=== PATIENT | female | born 1935 | race Caucasian/White ===

== ENCOUNTER → 2016-07-23 | Outpatient (CLI) | payer MEDICARE, BC ==
--- NOTE | 2016-07-23 15:08 | RAD ---
Indication cough. Axial noncontrast images through the chest were obtained. No prior imaging of the chest is available. The thoracic aorta is within normal limits. There is a moderately large hiatus hernia. There is no significant hilar or mediastinal adenopathy. There is a trace amount of pericardial fluid. There is some coronary artery calcification. A dominant soft tissue mass in either lung is not seen. The upper lobes are clear. There is no significant finding seen in the lingula or right middle lobe. There is some volume loss in both lower lobes. This may reflect atelectasis or conceivably pneumonia. There is mild compression of several thoracic vertebral body segments. This is probably chronic. IMPRESSION: Volume loss in both lower lobes may reflect atelectasis or pneumonia. Hiatus hernia. Musculoskeletal changes likely chronic PQRS Compliance Statement: One or more of the following individualized dose reduction techniques were utilized for this examination: 1. Automated exposure control 2. Adjustment of the mA and/or kV according to patient size 3. Use of iterative reconstruction technique
== END | disposition home or self-care (01) ==
LOC: CT 13:21
PROVIDERS: ATTEND Nurse Practitioner Adult Health
DX: R05 Cough (principal); J98.11 Atelectasis; J18.9 Pneumonia, unspecified organism; K44.9 Diaphragmatic hernia without obstruction or gangrene
CPT/HCPCS: 71250

== ENCOUNTER 2016-08-05 07:16 | Emergency (ER) | payer MEDICARE, BC ==
[2016-08-05 07:25] VITALS: BP 151/81
--- NOTE | 2016-08-05 07:42 | PHYS DOC ---
General Chief Complaint: MECHANICAL FALL Stated Complaint: FALL/LEFT SHOULDER INJURY Time Seen by MD: 07:18 Source: patient Exam Limitations: no limitations Problems: History of Present Illness Initial Comments Pt is 80/F to ED with left shoulder pain from fall. Pt states that this am she was walking and isn't certain whether she stumbled or lost her balance, but she fell down to her left to the floor. She tried to catch herself with outstretched left hand, states she did hit back of her head on the ground. Denies CABALLERO/LOC/neck pain, states she didn't hit her head very hard and doesn't feel injured at all. No daze, cognitive deficit, n/v, vision change, photophobia, CABALLERO, focal neurodef. Pt was prescribed coumadin for CVA in past, states her doctor told her to hold the med scheduled her to check INR today. Pt doctor considering stopping coumadin due to falls. Pain located generalized left shoulder, pt holds it adducted/internally rotated. Unwilling to move it due to pain, has full use of her left hand/ fingers, no numbness/tingling/weakness/radiating sx. Refuses pain meds on arrival. Onset: this morning Severity: moderate Pain/Injury Location: left shoulder Method of Injury: fell Modifying Factors: improves with immobilization, worse with jarring, worse with movement, improves with rest Allergies: Coded Allergies: No Known Drug Allergies (Unverified , 08/05/16) Past Medical History Medical History: other (GERD, HLP, HTN, CAD) Social History Smoker: non-smoker Alcohol: none Drugs: none Review of Systems Constitutional: denies chills, denies fever, denies malaise, denies weakness EENTM: denies blurred vision, denies ear discharge, denies nose pain, denies nose congestion, denies throat pain Respiratory: denies cough, denies shortness of breath, denies wheezing Cardiovascular: denies chest pain, denies palpitations, denies syncope Gastrointestinal: denies abdominal pain, denies nausea, denies vomiting Musculoskeletal: see HPI Psychiatric/Neurological: denies headache, denies numbness, denies paresthesia , denies tingling, denies weakness Physical Exam General Appearance: WD/WN, no apparent distress HEENT: PERRL/EOMI, normal ENT inspection (NCAT) Neck: non-tender, supple Cardiovascular/Respiratory: normal peripheral pulses, no respiratory distress Back: no CVA tenderness, no vertebral tenderness Shoulder: limited ROM, pain, soft tissue tenderness (L shoulder: proximal humeral TTP no swell/ecchy or obvious deformity, ROM not tested due to pain) Elbow/Forearm: normal inspection, non-tender Wrist: normal inspection, non-tender Neurologic/Tendon: normal sensation, normal motor functions, normal tendon functions, responds to pain, no evidence tendon injury, other (LUE neurovasc intact) Psychiatric: alert, oriented x 3 Skin: normal color, warm/dry Orders, Labs, Meds Phenytoin level ordered, pt states she is supposed to have dilantin level this am as well, she will not make that appt and asked if could be done here. PATIENT: EZEQUIEL GARCIA ACCOUNT: [id number] : 1935 LOCATION: ER AGE: 80 SEX: F EXAM [id number] STATUS: REG ER ORD. PHYSICIAN: WELLINGTON JONAS DO REASON: fall to outstretched left hand, L shoulder pain PROCEDURE: CLAVICLE LEFT; SHOULDER 2+V LEFT Left shoulder, 3 views, 08/05/2016: History: Fall, pain There is a fracture of the left humeral neck. It appears to be slightly comminuted and mildly impacted. No shoulder dislocation is evident. There are cystic and sclerotic changes along the glenoid fossa on a degenerative basis. IMPRESSION: Acute left humeral neck fracture. Left clavicle, 2 views, 08/05/2016: No fracture is identified. IMPRESSION: Normal left clavicle. DICTATED AND SIGNED BY: JACKIE NÚÑEZ MD DATE: 08/05/16 0901 CC: OBED PETTIT MD; WELLINGTON JONAS DO ~ Departure Time of Disposition: 10:19 Disposition: 01 HOME, SELF-CARE Diagnosis: Left Humeral Neck Fracture, Fall Condition: GOOD Patient Instructions: Fall Prevention and Home Safety, Itxa-rr-[id number], Humerus Fracture, Treated with Immobilization, Mend-ad-Cojh, RICE - Routine Care for Injuries, [id number] Additional Instructions: Ask for assistance with standing/walking, especially with pain medications. RICE, see handout. Wear sling. OTC ibuprofen for baseline pain. Rx: norco 5mg #10 (drink extra fluid and take stool softeners with this medication to avoid constipation. Take with food.) Follow up with Dr Griffin Vick at [facility] [address] , [place] [address] call today to schedule appointment. Return to ED as needed. WELLINGTON JONAS DO Aug 05, 2016 07:42
[2016-08-05 08:07] LABS: PHENY 18.5 mcg/mL (10.0-20.0)
--- NOTE | 2016-08-05 09:06 | RAD ---
Left shoulder, 3 views, 08/05/2016: History: Fall, pain There is a fracture of the left humeral neck. It appears to be slightly comminuted and mildly impacted. No shoulder dislocation is evident. There are cystic and sclerotic changes along the glenoid fossa on a degenerative basis. IMPRESSION: Acute left humeral neck fracture. Left clavicle, 2 views, 08/05/2016: No fracture is identified. IMPRESSION: Normal left clavicle.
[2016-08-05] MEDS ORDERED: HYDR-971 PO (10:23)
== END 2016-08-05 11:00 | disposition home or self-care (01) ==
LOC: ER 07:16
DX: S42.212A Unspecified displaced fracture of surgical neck of left humerus, initial encounter for closed fracture (principal); I25.10 Atherosclerotic heart disease of native coronary artery without angina pectoris; I10 Essential (primary) hypertension; E78.00 Pure hypercholesterolemia, unspecified; K21.9 Gastro-esophageal reflux disease without esophagitis; W19.XXXA Unspecified fall, initial encounter; Y93.01 Activity, walking, marching and hiking; Y99.8 Other external cause status; Y92.89 Other specified places as the place of occurrence of the external cause
CPT/HCPCS: 29105; 36415; 73000; 73030; 80185; 85610; 85730; 99285-25

== ENCOUNTER 2016-08-10 12:30 | Inpatient (IN) | payer MEDICARE, BC ==
[~2016-08-10] VITALS: Ht 157.5 cm; Wt 53.7 kg
[~2016-08-10 12:30] MED LIST: HYDR-971 PO
--- NOTE | 2016-08-10 13:18 | EKG ---
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
--- NOTE | 2016-08-10 13:40 | RAD ---
Portable AP view CXR: Clinical indications: Shortness of breath. Weakness for 3 days. Patient fell on August 05, 2016. Left arm pain with proximal left humerus fracture. Comparison: Left shoulder study dated August 05, 2016.. Findings: No acute lung infiltrate or pleural effusion or pulmonary edema or lung mass or pneumothorax is seen. The heart size, pulmonary vasculature, mediastinum and both irma are unremarkable given AP magnification. Again seen is a proximal left humerus fracture which is unchanged. Impression: No acute lung infiltrate. Proximal left humerus fracture. No obvious left rib cage deformity is seen..
[2016-08-10 13:48] LABS: BASO % 1 % (0-3); EOS # 0.7 x10^3/uL (0.0-0.7); EOS % 10 % (0-3); HEMATOCRIT 32.7 % (36.0-47.0); HEMOGLOBIN 11.3 g/dL (12.0-15.5); LYMPH # 1.2 x10^3/uL (1.0-4.8); LYMPH % 18 % (24-48); MEAN CORPUSCULAR HEMOGLOBIN 30 pg (25-35); MEAN CORPUSCULAR HGB CONC 35 g/dL (31-37); MEAN CORPUSCULAR VOLUME 86 fL (79-100); MONO # 0.7 x10^3/uL (0.0-1.1); MONO % 12 % (0-9); NEUT # 3.8 x10^3uL (1.8-7.7); NEUT % 60 % (31-73); PLATELET COUNT 293 x10^3/uL (140-400); RED BLOOD COUNT 3.81 x10^6/uL (3.50-5.40); RED CELL DISTRIBUTION WIDTH 13.3 % (11.5-14.5); WHITE BLOOD COUNT 6.4 x10^3/uL (4.0-11.0)
[2016-08-10 14:09] LABS: ALBUMIN 2.9 g/dL (3.4-5.0); ALBUMIN/GLOBULIN RATIO 0.7 (1.0-1.7); CALCIUM 8.6 mg/dL (8.5-10.1); CREATININE 0.8 mg/dL (0.6-1.0); POTASSIUM 3.9 mmol/L (3.5-5.1); TOTAL BILIRUBIN 0.4 mg/dL (0.2-1.0); TOTAL PROTEIN 6.9 g/dL (6.4-8.2)
[2016-08-10] MEDS ORDERED: IV NORMAL SALINE 500ML 500 ML IV ONE (14:20)
--- NOTE | 2016-08-10 14:38 | ED.ADGEN ---
Past History Past Medical History: GERD, High Cholesterol, Heart Disease, Hypertension Past Surgical History: Other Alcohol Use: None Drug Use: None Adult General Chief Complaint Chief Complaint Generalized weakness, left shoulder pain HPI HPI Patient is a 80-year-old female with history of paroxysmal atrial fibrillation diagnosed with closed left proximal humerus fracture several days ago who presents with generalized weakness, fatigue and inability to perform activities of daily living. Patient has her Coumadin held pending orthopedic consult for possible shoulder replacement surgery. She reports decreased appetite and decreased energy and oral intake has not had strengths get out of bed today according to family members. Patient denies fever, chills, cough, sore throat, chest pain, shortness of breath palpitations. Denies urinary frequency urgency and dysuria. No other acute symptoms or complaints. Patient's PCP is Dr. Palumbo. Review of Systems Review of Systems ROS as per HPI. Current Medications Current Medications Current Medications Medications (Trade) Dose Ordered Sig/River Start Time Stop Time Status Last Admin Dose Admin Sodium Chloride (Iv Sodium Chloride 0.9% 1,000ml) 1,000 ml @ 75 mls/hr [id number] 08/10/16 14:30 08/11/16 14:29 Allergies Allergies Allergies Coded Allergies Type Severity Reaction Last Updated Verified No Known Drug Allergies 08/05/16 No Physical Exam Physical Exam Constitutional: Well developed, well nourished, no acute distress, non-toxic appearance. HENT: Normocephalic, atraumatic, bilateral external ears normal, oropharynx moist, no oral exudates, nose normal. Eyes: PERRL, EOMI, conjunctiva normal. Neck: Normal range of motion, no tenderness, supple. Cardiovascular:Heart rate regular rhythm, no murmur. Lungs & Thorax: Bilateral breath sounds clear to auscultation. Abdomen: Bowel sounds normal, soft, no tenderness, no masses, no pulsatile masses. Skin: Warm, dry, no erythema, no rash. Extremities: Shoulder, subtle deformity with dependent bruising. 1 pitting bipedal edema Neurologic: Alert and oriented X 3, upper extremity, no motor weakness or loss of sensation. Psychologic: Affect, flat. Current Patient Data Vital Signs Vital Signs Date Time Temp Pulse Resp B/P Pulse Ox O2 Delivery O2 Flow Rate FiO2 08/10/16 13:57 69 20 153/65 97 Room Air 08/10/16 12:30 98.4 Lab Results Laboratory Tests Test 08/10/16 13:35 White Blood Count 6.4x10^3/uL (4.0-11.0) Red Blood Count 3.81x10^6/uL (3.50-5.40) Hemoglobin 11.3g/dL (12.0-15.5) L Hematocrit 32.7% (36.0-47.0) L Mean Corpuscular Volume 86fL (79-100) Mean Corpuscular Hemoglobin 30pg (25-35) Mean Corpuscular Hemoglobin Concent 35g/dL (31-37) Red Cell Distribution Width 13.3% (11.5-14.5) Platelet Count 293x10^3/uL (140-400) Neutrophils (%) (Auto) 60% (31-73) Lymphocytes (%) (Auto) 18% (24-48) L Monocytes (%) (Auto) 12% (0-9) H Eosinophils (%) (Auto) 10% (0-3) H Basophils (%) (Auto) 1% (0-3) Neutrophils # (Auto) 3.8x10^3uL (1.8-7.7) Lymphocytes # (Auto) 1.2x10^3/uL (1.0-4.8) Monocytes # (Auto) 0.7x10^3/uL (0.0-1.1) Eosinophils # (Auto) 0.7x10^3/uL (0.0-0.7) Basophils # (Auto) 0.0x10^3/uL (0.0-0.2) Sodium Level 130mmol/L (136-145) L Potassium Level 3.9mmol/L (3.5-5.1) Chloride Level 93mmol/L (98-107) L Carbon Dioxide Level 32mmol/L (21-32) Anion Gap 5 (6-14) L Blood Urea Nitrogen 13mg/dL (7-20) Creatinine 0.8mg/dL (0.6-1.0) Estimated GFR (Cockcroft-Gault) 69.0 BUN/Creatinine Ratio 16 (6-20) Glucose Level 88mg/dL (70-99) Calcium Level 8.6mg/dL (8.5-10.1) Total Bilirubin 0.4mg/dL (0.2-1.0) Aspartate Amino Transferase (AST) 17U/L (15-37) Alanine Aminotransferase (ALT) 19U/L (14-59) Alkaline Phosphatase 108U/L (46-116) Troponin I Quantitative < 0.017ng/mL (0-0.055) JJ-Vzk-D-Type Natriuretic Peptide 361pg/mL (0-449) Total Protein 6.9g/dL (6.4-8.2) Albumin 2.9g/dL (3.4-5.0) L Albumin/Globulin Ratio 0.7 (1.0-1.7) L EKG EKG [EKG: Normal sinus rhythm, rate 60, no acute ST-T wave changes, QTC 402.] Radiology/Procedures Radiology/Procedures [Chest x-ray: No acute cardiopulmonary disease, proximal left no fracture per radiology report.] Impressions: Generalized weakness, failure thrive-likely multifactorial. Course & Med Decision Making Course & Med Decision Making Pertinent Labs and Imaging studies reviewed. (See chart for details) [Concern that hyponatremia may be playing component. Dr. Palumbo to admit with anticipated PT/OT consult. IVF started. ] Final Impression Final Impression [1. Generalized weakness 2. hyponatremia 3. left shoulder fracture] Problems: Dragon Disclaimer Dragon Disclaimer This electronic medical record was generated, in whole or in part, using a voice recognition dictation system. CHRISTY MAYER DO Aug 10, 2016 14:38
[2016-08-10 14:57] LABS: BILIRUBIN,URINE NEG (NEG); CLARITY,URINE CLEAR; COLOR,URINE YELLOW; GLUCOSE,URINE NEG (NEG); NITRITE,URINE NEG (NEG); UROBILINOGEN,URINE 0.2 mg/dL (0.2 mg/dL)
[2016-08-10 14:58] LABS: BACTERIA,URINE 0 /HPF (0-FEW); WBC,URINE OCC /HPF (0-4)
--- NOTE | 2016-08-10 15:14 | ACF ---
Admission Criteria Forms HYPONATREMIA; HYPERNATREMIA; HYPOKALEMIA; HYPERKALEMIA; HYPOCALCEMIA; HYPERCALCEMIA Clinical Indications for Inpatient Care (Place 'X' for any and all applicable criteria): Ongoing inpatient care may be indicated for ANY ONE of the following [G](1)(2)(3 )(5): [x]I. Hyponatremia with ANY ONE of the following: [ ]a) Sodium less than 130 mEq/L (mmol/L) (new) (6)(22) [x]b) Sodium less than 135 mEq/L (mmol/L) with ANY ONE of the following: [x]i) Severe medical etiology requiring inpatient management (eg, heart failure, hypovolemia) [ ]ii) Altered mental status [ ]iii) Seizures [ ]II. Hypernatremia with ANY ONE of the following: [ ]a) Sodium greater than 155 mEq/L (mmol/L) [ ]b) Sodium greater than 150 mEq/L (mmol/L) with ANY ONE of the following: [ ] i) Altered mental status [ ]ii) Seizures [ ]iii) Severe medical etiology (eg, hypovolemia, diabetes insipidus) [ ]iv) Severe weakness [ ]v) Severe medical etiology (eg, hemolysis, infection, drug overdose) [ ]III. Hypokalemia with ANY ONE of the following: [ ]a) Potassium less than 2.5 mEq/L (mmol/L) despite outpatient and emergency treatment [ ]b) Potassium less than 3.0 mEq/L (mmol/L) with ANY ONE of the following: [ ]i) Weakness [ ]ii) Cardiac abnormality (eg, arrhythmia, conduction disturbance) [ ]iii) Cardiac ischemia [ ]iv) Ileus [ ]v) Ongoing medical cause requiring inpatient management. ( e.g., acute renal wasting, SIADH) [ ]vi) Other severe symptoms [ ] IV. Hyperkalemia with ANY ONE of the following: [ ]a) Potassium greater than 6.5 mEq/L (mmol/L) [ ]b) Potassium greater than 5 mEq/L (mmol/L) with ANY ONE of the following: [ ]i) Severe ECG findings [H] [ ]ii) Acute worsening of renal failure (creatinine greater than 2.5 mg/dL (221 micromoles/L) or significant elevation for age and size) [ ] V. Hypocalcemia with ANY ONE of the following: [ ]a) Calcium less than 7 mg/dL (1.75 mmol/L) despite outpatient and emergency treatment(19) [ ]b) Calcium less than 8 mg/dL (2 mmol/L) with significant symptoms or findings; examples include: [ ]i) Cardiac abnormality (eg, arrhythmia or conduction disturbance) [ ]ii) Altered mental status [ ]iii) Seizures [ ]iv) Breathing difficulty [ ]v) Muscle spasms [ ]. Hypercalcemia with ANY ONE of the following: [ ]a) Calcium greater than 14 mg/dL (3.5 mmol/L) [ ]b) Calcium greater than 12 mg/dL (3 mmol/L) with ANY ONE of the following: [ ]i) Significant dehydration or hypovolemia as indicated by ANY ONE of the following(2): [ ]1. Clinically significant dehydration as indicated by ANY ONE of the following: [ ]A. Acute loss of weight from baseline (5% of body weight in adults, 9% in pediatric patients) [ ]B. Hemodynamic instability [ ]C. Acute renal failure [ ]D. Serum sodium greater than 150 mEq/L (mmol/L) [ ]2) Dehydration that is persistent indicated by ALL of the following: [ ]A. Oral rehydration therapy not tolerated or insufficient to adequately correct dehydration [ ]B. Appropriate intravenous treatment (eg, fluids ) does not readily correct dehydration ie, after 12 to 24 hours of treatment) [ ]ii) Significant symptoms or findings; examples include: [ ]1) Altered mental status [ ]2) Cardiac abnormality (eg, arrhythmia, conduction disturbance) [ ]3) Cardiac abnormality (eg, arrhythmia, conduction disturbance) The original [email or web address] content created by [email or web address] has been revised. The portions of the content which have been revised are identified through the use of italic text or in bold, and [facility] [employer] has neither reviewed nor approved the modified material. All other unmodified content is copyright [facility] [employer] Please see references footnoted in the original [facility] [employer] edition 2016 Admission Criteria Met?: Yes JANELLE DAVIES Aug 10, 2016 15:14
[2016-08-10 15:47] VITALS: BP 144/72
[2016-08-10] MEDS ORDERED: HYDR12.53 PO (17:02)
[2016-08-10] MEDS ORDERED: LOSA100T6 PO (17:02)
[2016-08-10] MEDS ORDERED: CARV25TA2 PO (17:02)
[2016-08-10] MEDS ORDERED: POTA10TA5 PO (17:08)
[2016-08-10] MEDS ORDERED: FOLI1TAB16 PO (17:10)
[2016-08-10] MEDS ORDERED: ALEN70TA5 PO (17:10)
[2016-08-10] MEDS ORDERED: NISO17TA PO (17:44)
[2016-08-10] MEDS ORDERED: SIMV40TA3 PO (17:45)
[2016-08-10 18:03] VITALS: BP 142/58
--- NOTE | 2016-08-10 18:48 | RAD ---
PQRS STATEMENT One or more of the following individualized dose reduction techniques were utilized for this study: 1.Automated exposure control 2.Adjustment of the mA and/or kV according to patient size 3.Use of iterative reconstruction technique CT HEAD Indication: FALL LAST WEEK
PRIOR CT HEAD SENTReason: head trauma / Spl. Instructions: / History: COMPARISON: 11/04/2007 TECHNIQUE: 5 mm contiguous axial images were obtained from the skull base to the vertex in both bone and soft tissue algorithm. 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 There are bilateral symmetric areas of low attenuation in the periventricular white matter which are nonspecific but probably related to sequelae of chronic small vessel ischemic disease. No evidence of acute intracranial hemorrhage. No extra-axial fluid collections. No mass effect or midline shift.Ventricular size is appropriate. Basal cisterns are patent. No fractures identified. Globes and orbits are within normal limits. Paranasal sinuses and mastoid air cells are clear. IMPRESSION: - No acute intracranial abnormality. 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 Electronically signed by: Conrad Shay (Aug 10, 2016 18:48:17)
[2016-08-10] MEDS ORDERED: PRESERVISION (19:38)
[2016-08-10] MEDS ORDERED: HYDROCODONE/APAP 5/325MG TABLET. PO PRN (19:45)
[2016-08-10] MEDS: LOSARTAN 50 MG TABLET. PO SCH (20:00)
[2016-08-10] MEDS: PHENYTOIN SODIUM EXTENDED 100 MG CAPSULE PO SCH (20:38)
[2016-08-10] MEDS: AMLODIPINE BESYLATE 5 MG TABLET PO SCH (20:38)
[2016-08-10 23:06] VITALS: BP 167/72
[2016-08-10] MEDS ORDERED: DIPHENHYDRAMINE HCL 25 MG CAPSULE PO PRN (23:30)
[2016-08-11] MEDS: IV NORMAL SALINE 1,000ML 1,000 ML IV SCH ×5 (03:07→17:45)
[2016-08-11 05:26] LABS: BASO # 0.1 x10^3/uL (0.0-0.2); BASO % 1 % (0-3); EOS # 0.6 x10^3/uL (0.0-0.7); EOS % 10 % (0-3); HEMOGLOBIN 10.4 g/dL (12.0-15.5); LYMPH # 1.3 x10^3/uL (1.0-4.8); LYMPH % 24 % (24-48); MEAN CORPUSCULAR HEMOGLOBIN 30 pg (25-35); MEAN CORPUSCULAR HGB CONC 35 g/dL (31-37); MEAN CORPUSCULAR VOLUME 86 fL (79-100); MONO # 0.7 x10^3/uL (0.0-1.1); MONO % 12 % (0-9); NEUT # 3.1 x10^3uL (1.8-7.7); NEUT % 53 % (31-73); PLATELET COUNT 244 x10^3/uL (140-400); RED BLOOD COUNT 3.48 x10^6/uL (3.50-5.40); RED CELL DISTRIBUTION WIDTH 13.6 % (11.5-14.5); WHITE BLOOD COUNT 5.7 x10^3/uL (4.0-11.0)
[2016-08-11 05:27] LABS: CALCIUM 7.9 mg/dL (8.5-10.1); CREATININE 0.8 mg/dL (0.6-1.0); POTASSIUM 3.6 mmol/L (3.5-5.1)
[2016-08-11] MEDS ORDERED: CARVEDILOL 25 MG TABLET PO SCH (08:00)
[2016-08-11 08:01] VITALS: BP 157/62
[2016-08-11] MEDS ORDERED: ACETAMINOPHEN 500 MG TABLET PO PRN (09:15)
[2016-08-11] MEDS: CARVEDILOL 25 MG TABLET PO SCH ×2 (09:23→17:10)
[2016-08-11] MEDS: HYDROCHLOROTHIAZIDE 12.5 MG CAPSULE PO SCH (09:23)
[2016-08-11] MEDS: LOSARTAN 50 MG TABLET. PO SCH (09:23)
[2016-08-11 11:28] VITALS: BP 136/58
[2016-08-11] MEDS ORDERED: ENOXAPARIN 30 MG/0.3 ML DISP.SYRIN. SQ SCH (12:30)
--- NOTE | 2016-08-11 16:15 | HP ---
ADMIT DATE: 08/10/2016 HISTORY OF PRESENT ILLNESS: An 80-year-old female came in through the Emergency Room with a history of paroxysmal atrial fibrillation, apparently fractured her shoulder here a few days ago, came in; however, since that time, she has been having generalized weakness, fatigue, unable to do any daily routine. She has not been eating or drinking much at all. She has been increasingly weakened, cannot get out of bed and is generally deteriorated, showed general mental decrease in her ability to function. She was admitted to the hospital for further evaluation of the change in mental status, possible encephalopathy, possible mild concussion from her fall, which no doubt was probably related to her atrial fibrillation. Originally, when she came into the Emergency Room in early August, apparently, she stumbled, she lost her balance, tried to catch herself, outstretched left hand, hit the back of her head on the ground. She was not quite sure whether or not she lost consciousness or not at that time, she was seen initially in the Emergency Room, where she was found to have this fracture to the left shoulder. At that time, the patient was discharged home for followup and further evaluation there. The patient had also within the last month been treated for pneumonia, but a chest x-ray was basically unremarkable there. In any case, the patient was admitted to the hospital for further evaluation and treatment. I believe, she does have some mild concussion especially with her age. She is on chronic anticoagulation therapy as well for her atrial fibrillation. MEDICATIONS: 70 mg a day, carvedilol 25 mg t.i.d., folic acid, hydrochlorothiazide, hydrocodone, losartan, mg extended release, potassium chloride, Zocor 40, PreserVision. ALLERGIES: No known drug allergies. FAMILY HISTORY: Unremarkable. SOCIAL HISTORY: Denies smoking, alcohol or drug use. REVIEW OF SYSTEMS: Basically, she denies headaches, although she is a little bit lethargic, weak, has severe pain in her left shoulder. Denies any chest pain, shortness breath, or abdominal pain. Denies any melena, hematochezia, or hematemesis. Neurologically, intact. As far as obviously she shows a deterioration of her overall mental status. PAST MEDICAL HISTORY: She has had a history of a stroke years ago, a history of seizure activity, hysterectomy, hypertension, hypercholesterolemia, cardiac disorders, and neurological problems as well. PHYSICAL EXAMINATION: VITAL SIGNS: Blood pressure 150/60, respiratory rate 20, pulse 70, afebrile. HEENT: The patient's head was atraumatic, normocephalic. Eyes: PERRLA without jaundice. Mouth and throat were normal. NECK: Supple. LUNGS: Diminished throughout, but clear. CARDIOVASCULAR: Regular rate and rhythm. ABDOMEN: Soft, nontender. No rebound or guarding, positive bowel sounds, no hepatosplenomegaly noted. EXTREMITIES: No clubbing, cyanosis or edema. NEUROLOGIC: The patient was basically very lethargic, very weak and so forth. As a result of this, the patient was admitted to the hospital for further evaluation on that element as well. IMPRESSION: Concussion, general deterioration or failure to thrive, anemia of chronic disease, hyponatremia, generalized weakness, recent fracture of her left humerus, and history of seizure activity. OBED PETTIT MD DR: MAHESH/kenya JOB#: [id number] / [id number]
[2016-08-11 16:40] VITALS: BP 141/70
[2016-08-11] MEDS ORDERED: IV NORMAL SALINE 1,000ML 1,000 ML IV SCH (17:15)
[2016-08-11 19:06] VITALS: BP 139/66
[2016-08-11] MEDS: PHENYTOIN SODIUM EXTENDED 100 MG CAPSULE PO SCH (20:16)
[2016-08-11] MEDS: ENOXAPARIN 40 MG/0.4 ML DISP.SYRIN. SQ SCH (20:17)
[2016-08-11] MEDS: AMLODIPINE BESYLATE 5 MG TABLET PO SCH (20:17)
[2016-08-12] VITALS (7 sets, daily range): BP systolic 136–171; BP diastolic 61–86
[2016-08-12] MEDS: IV NORMAL SALINE 1,000ML 1,000 ML IV SCH ×2 (05:58→19:49)
[2016-08-12 06:16] LABS: BASO % 0 % (0-3); EOS # 0.6 x10^3/uL (0.0-0.7); EOS % 12 % (0-3); HEMATOCRIT 28.6 % (36.0-47.0); HEMOGLOBIN 9.8 g/dL (12.0-15.5); LYMPH % 19 % (24-48); MEAN CORPUSCULAR HEMOGLOBIN 30 pg (25-35); MEAN CORPUSCULAR HGB CONC 34 g/dL (31-37); MEAN CORPUSCULAR VOLUME 87 fL (79-100); MONO # 0.6 x10^3/uL (0.0-1.1); MONO % 11 % (0-9); NEUT # 3.3 x10^3uL (1.8-7.7); NEUT % 59 % (31-73); PLATELET COUNT 232 x10^3/uL (140-400); RED BLOOD COUNT 3.28 x10^6/uL (3.50-5.40); RED CELL DISTRIBUTION WIDTH 13.4 % (11.5-14.5); WHITE BLOOD COUNT 5.6 x10^3/uL (4.0-11.0)
[2016-08-12 06:24] LABS: CALCIUM 7.8 mg/dL (8.5-10.1); CREATININE 0.6 mg/dL (0.6-1.0); GFR 96.2; POTASSIUM 3.3 mmol/L (3.5-5.1)
[2016-08-12 07:27] LABS: % BANDS 1 % (0-9); % EOS 13 % (0-5); % LYMPHS 16 % (24-48); % MONOS 11 % (0-10); % SEGS 58 % (35-66)
[2016-08-12 07:28] LABS: PLT ESTIMATE ADEQUATE (ADEQUATE)
[2016-08-12 07:29] LABS: POLYCHROMASIA SLIGHT
[2016-08-12] MEDS ORDERED: POTASSIUM CHLORIDE 20 MEQ TABLET.ER. PO ONE (07:30)
[2016-08-12 07:31] LABS: OVALOCYTES OCC
[2016-08-12] MEDS: HYDROCHLOROTHIAZIDE 12.5 MG CAPSULE PO SCH (07:56)
[2016-08-12] MEDS: LOSARTAN 50 MG TABLET. PO SCH (07:56)
[2016-08-12] MEDS: CARVEDILOL 25 MG TABLET PO SCH ×2 (07:56→17:04)
[2016-08-12] MEDS: MUPIROCIN 2% TOPICAL OINTMENT 22GM TUBE. TP SCH ×2 (12:13→19:54)
[2016-08-12] MEDS: AMLODIPINE BESYLATE 5 MG TABLET PO SCH (19:53)
[2016-08-12] MEDS: PHENYTOIN SODIUM EXTENDED 100 MG CAPSULE PO SCH (19:53)
[2016-08-12] MEDS: ENOXAPARIN 40 MG/0.4 ML DISP.SYRIN. SQ SCH (19:54)
[2016-08-13] MEDS ORDERED: PHEN100C PO (01:04)
[2016-08-13] MEDS ORDERED: RANI300T PO (01:04)
[2016-08-13] MEDS ORDERED: CALC-47 PO (01:06)
[2016-08-13] MEDS ORDERED: MUPI1OIN NS (02:01)
[2016-08-13] MEDS ORDERED: DIPH25CA58 PO (02:09)
[2016-08-13] MEDS ORDERED: ACET325T9 PO (02:10)
== END 2016-08-13 00:01 | disposition swing bed (61) | DRG 89 ==
LOC: ER 12:30 → ICU 14:54 → UNDOADMIN 14:54 → 1 SOUTH 14:54
PROVIDERS: ADMIT Family Medicine; ATTEND Family Medicine
DX: S06.0X9A Concussion with loss of consciousness of unspecified duration, initial encounter (principal); E87.1 Hypo-osmolality and hyponatremia; D63.8 Anemia in other chronic diseases classified elsewhere; E78.00 Pure hypercholesterolemia, unspecified; I10 Essential (primary) hypertension; I48.0 Paroxysmal atrial fibrillation; R56.9 Unspecified convulsions; M25.512 Pain in left shoulder; R63.0 Anorexia; W19.XXXA Unspecified fall, initial encounter; K21.9 Gastro-esophageal reflux disease without esophagitis; R62.7 Adult failure to thrive; Z79.01 Long term (current) use of anticoagulants; Z86.73 Personal history of transient ischemic attack (TIA), and cerebral infarction without residual deficits; Y93.89 Activity, other specified; Y92.89 Other specified places as the place of occurrence of the external cause; Y99.8 Other external cause status; Z68.21 Body mass index [BMI] 21.0-21.9, adult
CPT/HCPCS: 36415; 51701; 70450; 71010; 80048; 80053; 81001; 82607; 83605; 83735; 83880; 84443; 84484; 85007; 85027; 85610; 87641; 93005; 96360; J1650; J7040; Q0163; 97116; 99285-25; J7030

== ENCOUNTER 2016-08-12 16:00 | Inpatient (IN) | payer MEDICARE, BC ==
[~2016-08-12] VITALS: Ht 154.9 cm; Wt 50.9 kg
[~2016-08-12 16:00] MED LIST changes: +ALEN70TA5 PO; +CARV25TA2 PO; +FOLI1TAB16 PO; +HYDR12.53 PO; +LOSA100T6 PO; +NISO17TA PO; +POTA10TA5 PO; +PRESERVISION; +SIMV40TA3 PO
[2016-08-13] MEDS ORDERED: RANI300T PO (01:04)
[2016-08-13] MEDS ORDERED: PHEN100C PO (01:04)
[2016-08-13] MEDS ORDERED: CALC-157 PO (01:06)
[2016-08-13] MEDS ORDERED: HYDROcodone/APAP 5/325MG 1 TAB TABLET PO PRN (02:00)
[2016-08-13] MEDS ORDERED: MUPI1OIN NS (02:01)
[2016-08-13] MEDS ORDERED: DIPH25CA58 PO (02:09)
[2016-08-13] MEDS ORDERED: ACET325T9 PO (02:10)
[2016-08-13 02:49] VITALS: BP 148/65
[2016-08-13] MEDS: diphenhydrAMINE HCL 25 MG CAPSULE PO PRN ×2 (03:09→19:42)
[2016-08-13] MEDS ORDERED: CALCIUM CARB/VIT D3 500/200 TABLET PO SCH (07:00)
[2016-08-13 07:22] VITALS: BP 185/73
[2016-08-13] MEDS ORDERED: CARVEDILOL 25 MG TABLET PO SCH (08:00)
[2016-08-13] MEDS: LOSARTAN 50 MG TABLET. PO SCH (08:15)
[2016-08-13] MEDS: FOLIC ACID 1 MG TABLET PO SCH (08:15)
[2016-08-13] MEDS: CALCIUM CARB/VIT D3 500/200 TABLET PO SCH ×2 (08:16→19:40)
[2016-08-13] MEDS: CARVEDILOL 25 MG TABLET PO SCH ×2 (08:17→17:05)
[2016-08-13] MEDS: POTASSIUM CHLORIDE 10 MEQ TABLET.ER. PO SCH ×2 (08:17→17:03)
[2016-08-13] MEDS: hydroCHLOROthiazide 12.5 MG CAPSULE PO SCH (08:18)
[2016-08-13] MEDS: ACETAMINOPHEN 500 MG TABLET PO PRN (08:44)
[2016-08-13] MEDS ORDERED: MUPIROCIN 2% TOPICAL OINTMENT 22GM TUBE. TP SCH (09:00)
[2016-08-13 17:28] VITALS: BP 185/83
[2016-08-13 19:20] VITALS: BP 125/70
[2016-08-13] MEDS: ENOXAPARIN 40 MG/0.4 ML DISP.SYRIN. SQ SCH (19:39)
[2016-08-13] MEDS: PHENYTOIN SODIUM EXTENDED 100 MG CAPSULE PO SCH (19:40)
[2016-08-13] MEDS: amLODIPine BESYLATE 5 MG TABLET PO SCH (19:41)
[2016-08-13] MEDS: SIMVASTATIN 40 MG TABLET. PO SCH (19:42)
[2016-08-13] MEDS: MUPIROCIN 2% TOPICAL OINTMENT 22GM TUBE. TP SCH (19:42)
[2016-08-13] MEDS: FAMOTIDINE 20 MG TABLET PO SCH (19:42)
[2016-08-14] MEDS: diphenhydrAMINE HCL 25 MG CAPSULE PO PRN ×2 (04:37→20:16)
[2016-08-14 05:07] VITALS: BP 168/74
[2016-08-14] MEDS: CALCIUM CARB/VIT D3 500/200 TABLET PO SCH ×2 (08:34→20:15)
[2016-08-14] MEDS: hydroCHLOROthiazide 12.5 MG CAPSULE PO SCH (08:34)
[2016-08-14] MEDS: LOSARTAN 50 MG TABLET. PO SCH (08:34)
[2016-08-14] MEDS: MUPIROCIN 2% TOPICAL OINTMENT 22GM TUBE. TP SCH ×2 (08:34→20:23)
[2016-08-14] MEDS: FOLIC ACID 1 MG TABLET PO SCH (08:34)
[2016-08-14] MEDS: ACETAMINOPHEN 500 MG TABLET PO PRN ×2 (08:34→20:15)
[2016-08-14] MEDS: CARVEDILOL 25 MG TABLET PO SCH ×3 (08:35→16:46)
[2016-08-14] MEDS: POTASSIUM CHLORIDE 10 MEQ TABLET.ER. PO SCH ×2 (08:35→16:47)
[2016-08-14 20:02] VITALS: BP 147/75
[2016-08-14] MEDS: FAMOTIDINE 20 MG TABLET PO SCH (20:15)
[2016-08-14] MEDS: amLODIPine BESYLATE 5 MG TABLET PO SCH (20:16)
[2016-08-14] MEDS: PHENYTOIN SODIUM EXTENDED 100 MG CAPSULE PO SCH (20:16)
[2016-08-14] MEDS: SIMVASTATIN 40 MG TABLET. PO SCH (20:16)
[2016-08-14] MEDS: ENOXAPARIN 40 MG/0.4 ML DISP.SYRIN. SQ SCH (20:17)
[2016-08-15] MEDS: ACETAMINOPHEN 500 MG TABLET PO PRN ×2 (05:03→19:38)
[2016-08-15 05:44] VITALS: BP 167/72
[2016-08-15] MEDS: hydroCHLOROthiazide 12.5 MG CAPSULE PO SCH (08:07)
[2016-08-15] MEDS: FOLIC ACID 1 MG TABLET PO SCH (08:08)
[2016-08-15] MEDS: LOSARTAN 50 MG TABLET. PO SCH (08:08)
[2016-08-15] MEDS: CARVEDILOL 25 MG TABLET PO SCH ×3 (08:09→18:00)
[2016-08-15] MEDS: POTASSIUM CHLORIDE 10 MEQ TABLET.ER. PO SCH ×2 (08:09→17:59)
[2016-08-15] MEDS: MUPIROCIN 2% TOPICAL OINTMENT 22GM TUBE. TP SCH ×2 (08:10→19:40)
[2016-08-15] MEDS: CALCIUM CARB/VIT D3 500/200 TABLET PO SCH ×2 (08:10→19:38)
[2016-08-15 18:11] VITALS: BP 156/72
[2016-08-15] MEDS: FAMOTIDINE 20 MG TABLET PO SCH (19:37)
[2016-08-15] MEDS: ENOXAPARIN 40 MG/0.4 ML DISP.SYRIN. SQ SCH (19:37)
[2016-08-15] MEDS: SIMVASTATIN 40 MG TABLET. PO SCH (19:37)
[2016-08-15] MEDS: amLODIPine BESYLATE 5 MG TABLET PO SCH (19:38)
[2016-08-15] MEDS: PHENYTOIN SODIUM EXTENDED 100 MG CAPSULE PO SCH (19:38)
[2016-08-15 19:45] VITALS: BP 134/74
[2016-08-16 06:26] VITALS: BP 168/74
[2016-08-16] MEDS: POTASSIUM CHLORIDE 10 MEQ TABLET.ER. PO SCH ×2 (08:36→17:15)
[2016-08-16] MEDS: CALCIUM CARB/VIT D3 500/200 TABLET PO SCH ×2 (08:36→20:48)
[2016-08-16] MEDS: MUPIROCIN 2% TOPICAL OINTMENT 22GM TUBE. TP SCH ×2 (08:36→20:49)
[2016-08-16] MEDS: CARVEDILOL 25 MG TABLET PO SCH ×3 (08:36→17:14)
[2016-08-16] MEDS: LOSARTAN 50 MG TABLET. PO SCH (08:36)
[2016-08-16] MEDS: hydroCHLOROthiazide 12.5 MG CAPSULE PO SCH (08:36)
[2016-08-16] MEDS: FOLIC ACID 1 MG TABLET PO SCH (08:36)
[2016-08-16 15:30] VITALS: BP 148/74
[2016-08-16] MEDS ORDERED: WARFARIN 5 MG TABLET. PO ONE (16:00)
[2016-08-16 19:44] VITALS: BP 137/62
[2016-08-16] MEDS: FAMOTIDINE 20 MG TABLET PO SCH (20:48)
[2016-08-16] MEDS: ENOXAPARIN 40 MG/0.4 ML DISP.SYRIN. SQ SCH (20:49)
[2016-08-16] MEDS: amLODIPine BESYLATE 5 MG TABLET PO SCH (20:49)
[2016-08-16] MEDS: PHENYTOIN SODIUM EXTENDED 100 MG CAPSULE PO SCH (20:49)
[2016-08-16] MEDS: SIMVASTATIN 40 MG TABLET. PO SCH (20:49)
[2016-08-17 05:41] VITALS: BP 156/77
[2016-08-17] MEDS: POTASSIUM CHLORIDE 10 MEQ TABLET.ER. PO SCH ×2 (08:07→16:56)
[2016-08-17] MEDS: FOLIC ACID 1 MG TABLET PO SCH (08:07)
[2016-08-17] MEDS: LOSARTAN 50 MG TABLET. PO SCH (08:07)
[2016-08-17] MEDS: CALCIUM CARB/VIT D3 500/200 TABLET PO SCH ×2 (08:07→20:45)
[2016-08-17] MEDS: hydroCHLOROthiazide 12.5 MG CAPSULE PO SCH (08:07)
[2016-08-17] MEDS: MUPIROCIN 2% TOPICAL OINTMENT 22GM TUBE. TP SCH ×2 (08:07→20:46)
[2016-08-17] MEDS: CARVEDILOL 25 MG TABLET PO SCH ×3 (08:07→16:56)
[2016-08-17 15:52] VITALS: BP 159/69
[2016-08-17] MEDS ORDERED: WARFARIN 5 MG TABLET. PO ONE (16:00)
[2016-08-17] MEDS: FAMOTIDINE 20 MG TABLET PO SCH (20:45)
[2016-08-17] MEDS: PHENYTOIN SODIUM EXTENDED 100 MG CAPSULE PO SCH (20:45)
[2016-08-17] MEDS: SIMVASTATIN 40 MG TABLET. PO SCH (20:45)
[2016-08-17] MEDS: ENOXAPARIN 40 MG/0.4 ML DISP.SYRIN. SQ SCH (20:46)
[2016-08-17 20:48] VITALS: BP 191/80
[2016-08-17] MEDS: amLODIPine BESYLATE 5 MG TABLET PO SCH (20:48)
[2016-08-18 06:13] VITALS: BP 189/81
[2016-08-18] MEDS: FOLIC ACID 1 MG TABLET PO SCH (08:01)
[2016-08-18] MEDS: LOSARTAN 50 MG TABLET. PO SCH (08:02)
[2016-08-18] MEDS: CALCIUM CARB/VIT D3 500/200 TABLET PO SCH ×2 (08:02→19:52)
[2016-08-18] MEDS: CARVEDILOL 25 MG TABLET PO SCH ×3 (08:02→17:04)
[2016-08-18] MEDS: MUPIROCIN 2% TOPICAL OINTMENT 22GM TUBE. TP SCH ×2 (08:02→19:52)
[2016-08-18] MEDS: hydroCHLOROthiazide 12.5 MG CAPSULE PO SCH (08:02)
[2016-08-18] MEDS: POTASSIUM CHLORIDE 10 MEQ TABLET.ER. PO SCH ×2 (09:29→17:03)
[2016-08-18 11:21] VITALS: BP 146/74
[2016-08-18] MEDS ORDERED: WARFARIN 5 MG TABLET. PO ONE (16:00)
[2016-08-18 19:39] VITALS: BP 155/65
[2016-08-18] MEDS: FAMOTIDINE 20 MG TABLET PO SCH (19:50)
[2016-08-18] MEDS: ENOXAPARIN 40 MG/0.4 ML DISP.SYRIN. SQ SCH (19:50)
[2016-08-18] MEDS: PHENYTOIN SODIUM EXTENDED 100 MG CAPSULE PO SCH (19:51)
[2016-08-18] MEDS: SIMVASTATIN 40 MG TABLET. PO SCH (19:51)
[2016-08-18] MEDS: amLODIPine BESYLATE 5 MG TABLET PO SCH (19:51)
[2016-08-19 05:04] VITALS: BP 140/68
[2016-08-19] MEDS ORDERED: ALENDRONATE SODIUM 70 MG TABLET PO SCH (06:00)
[2016-08-19 06:43] LABS: CALCIUM 8.3 mg/dL (8.5-10.1); CREATININE 0.7 mg/dL (0.6-1.0); GFR 80.5; POTASSIUM 4.1 mmol/L (3.5-5.1)
[2016-08-19] MEDS: ALENDRONATE SODIUM 70 MG TABLET PO SCH (07:30)
[2016-08-19] MEDS: CALCIUM CARB/VIT D3 500/200 TABLET PO SCH ×2 (08:05→20:42)
[2016-08-19] MEDS: hydroCHLOROthiazide 12.5 MG CAPSULE PO SCH (08:05)
[2016-08-19] MEDS: LOSARTAN 50 MG TABLET. PO SCH (08:05)
[2016-08-19] MEDS: FOLIC ACID 1 MG TABLET PO SCH (08:05)
[2016-08-19] MEDS: ACETAMINOPHEN 500 MG TABLET PO PRN ×2 (08:05→20:41)
[2016-08-19] MEDS: POTASSIUM CHLORIDE 10 MEQ TABLET.ER. PO SCH ×2 (08:06→17:09)
[2016-08-19] MEDS: CARVEDILOL 25 MG TABLET PO SCH ×3 (08:06→17:09)
[2016-08-19] MEDS: MUPIROCIN 2% TOPICAL OINTMENT 22GM TUBE. TP SCH ×2 (08:07→20:51)
[2016-08-19] MEDS ORDERED: WARFARIN 5 MG TABLET. PO ONE (16:00)
[2016-08-19 16:04] VITALS: BP 145/67
[2016-08-19 19:56] VITALS: BP 151/65
[2016-08-19] MEDS: diphenhydrAMINE HCL 25 MG CAPSULE PO PRN (20:42)
[2016-08-19] MEDS: PHENYTOIN SODIUM EXTENDED 100 MG CAPSULE PO SCH (20:42)
[2016-08-19] MEDS: ENOXAPARIN 40 MG/0.4 ML DISP.SYRIN. SQ SCH (20:42)
[2016-08-19] MEDS: amLODIPine BESYLATE 5 MG TABLET PO SCH (20:42)
[2016-08-19] MEDS: SIMVASTATIN 40 MG TABLET. PO SCH (20:42)
[2016-08-19] MEDS: FAMOTIDINE 20 MG TABLET PO SCH (20:42)
[2016-08-20 04:50] VITALS: BP 154/63
[2016-08-20] MEDS: hydroCHLOROthiazide 12.5 MG CAPSULE PO SCH (08:11)
[2016-08-20] MEDS: CARVEDILOL 25 MG TABLET PO SCH ×3 (08:11→16:54)
[2016-08-20] MEDS: CALCIUM CARB/VIT D3 500/200 TABLET PO SCH ×2 (08:11→20:13)
[2016-08-20] MEDS: POTASSIUM CHLORIDE 10 MEQ TABLET.ER. PO SCH ×2 (08:12→16:54)
[2016-08-20] MEDS: FOLIC ACID 1 MG TABLET PO SCH (08:12)
[2016-08-20] MEDS: LOSARTAN 50 MG TABLET. PO SCH (08:12)
[2016-08-20] MEDS: MUPIROCIN 2% TOPICAL OINTMENT 22GM TUBE. TP SCH ×2 (08:13→20:16)
[2016-08-20] MEDS ORDERED: WARFARIN 5 MG TABLET. PO ONE (16:00)
[2016-08-20 18:29] VITALS: BP 146/70
[2016-08-20] MEDS: FAMOTIDINE 20 MG TABLET PO SCH (20:13)
[2016-08-20] MEDS: SIMVASTATIN 40 MG TABLET. PO SCH (20:13)
[2016-08-20] MEDS: amLODIPine BESYLATE 5 MG TABLET PO SCH (20:15)
[2016-08-20] MEDS: PHENYTOIN SODIUM EXTENDED 100 MG CAPSULE PO SCH (20:15)
[2016-08-20] MEDS: ENOXAPARIN 40 MG/0.4 ML DISP.SYRIN. SQ SCH (20:16)
[2016-08-21 06:11] VITALS: BP 154/61
[2016-08-21] MEDS: hydroCHLOROthiazide 12.5 MG CAPSULE PO SCH (08:12)
[2016-08-21] MEDS: LOSARTAN 50 MG TABLET. PO SCH (08:12)
[2016-08-21] MEDS: FOLIC ACID 1 MG TABLET PO SCH (08:12)
[2016-08-21] MEDS: POTASSIUM CHLORIDE 10 MEQ TABLET.ER. PO SCH ×2 (08:12→16:22)
[2016-08-21] MEDS: CALCIUM CARB/VIT D3 500/200 TABLET PO SCH ×2 (08:12→20:06)
[2016-08-21] MEDS: CARVEDILOL 25 MG TABLET PO SCH ×3 (08:12→16:22)
[2016-08-21] MEDS: MUPIROCIN 2% TOPICAL OINTMENT 22GM TUBE. TP SCH ×2 (08:51→20:08)
[2016-08-21 15:53] VITALS: BP 150/73
[2016-08-21] MEDS ORDERED: WARFARIN 3 MG TABLET. PO ONE (16:00)
[2016-08-21 19:47] VITALS: BP 148/72
[2016-08-21] MEDS: SIMVASTATIN 40 MG TABLET. PO SCH (20:05)
[2016-08-21] MEDS: PHENYTOIN SODIUM EXTENDED 100 MG CAPSULE PO SCH (20:05)
[2016-08-21] MEDS: FAMOTIDINE 20 MG TABLET PO SCH (20:06)
[2016-08-21] MEDS: amLODIPine BESYLATE 5 MG TABLET PO SCH (20:06)
[2016-08-21] MEDS: ENOXAPARIN 40 MG/0.4 ML DISP.SYRIN. SQ SCH (20:06)
[2016-08-22 06:00] VITALS: BP 167/63
[2016-08-22] MEDS: FOLIC ACID 1 MG TABLET PO SCH (08:26)
[2016-08-22] MEDS: hydroCHLOROthiazide 12.5 MG CAPSULE PO SCH (08:26)
[2016-08-22] MEDS: CALCIUM CARB/VIT D3 500/200 TABLET PO SCH ×2 (08:26→20:55)
[2016-08-22] MEDS: CARVEDILOL 25 MG TABLET PO SCH ×3 (08:27→16:57)
[2016-08-22] MEDS: POTASSIUM CHLORIDE 10 MEQ TABLET.ER. PO SCH ×2 (08:27→16:58)
[2016-08-22] MEDS: LOSARTAN 50 MG TABLET. PO SCH (08:27)
[2016-08-22] MEDS: MUPIROCIN 2% TOPICAL OINTMENT 22GM TUBE. TP SCH ×2 (08:28→20:56)
[2016-08-22 10:14] VITALS: BP 109/65
[2016-08-22] MEDS ORDERED: WARFARIN 4 MG TABLET. PO ONE (16:00)
[2016-08-22 18:17] VITALS: BP 157/65
[2016-08-22] MEDS: PHENYTOIN SODIUM EXTENDED 100 MG CAPSULE PO SCH (20:55)
[2016-08-22] MEDS: SIMVASTATIN 40 MG TABLET. PO SCH (20:55)
[2016-08-22] MEDS: amLODIPine BESYLATE 5 MG TABLET PO SCH (20:55)
[2016-08-22] MEDS: ENOXAPARIN 40 MG/0.4 ML DISP.SYRIN. SQ SCH (20:56)
[2016-08-22] MEDS: FAMOTIDINE 20 MG TABLET PO SCH (20:56)
[2016-08-23 05:09] VITALS: BP 175/68
[2016-08-23] MEDS: CALCIUM CARB/VIT D3 500/200 TABLET PO SCH ×2 (07:58→20:08)
[2016-08-23] MEDS: CARVEDILOL 25 MG TABLET PO SCH ×3 (07:58→16:01)
[2016-08-23] MEDS: LOSARTAN 50 MG TABLET. PO SCH (07:59)
[2016-08-23] MEDS: POTASSIUM CHLORIDE 10 MEQ TABLET.ER. PO SCH ×2 (07:59→16:01)
[2016-08-23] MEDS: FOLIC ACID 1 MG TABLET PO SCH (07:59)
[2016-08-23] MEDS: MUPIROCIN 2% TOPICAL OINTMENT 22GM TUBE. TP SCH ×2 (08:00→20:10)
[2016-08-23] MEDS: hydroCHLOROthiazide 12.5 MG CAPSULE PO SCH (08:00)
[2016-08-23 10:36] VITALS: BP 144/75
[2016-08-23] MEDS ORDERED: WARFARIN 5 MG TABLET. PO ONE (16:00)
[2016-08-23 18:11] VITALS: BP 156/68
[2016-08-23] MEDS: ENOXAPARIN 40 MG/0.4 ML DISP.SYRIN. SQ SCH (20:08)
[2016-08-23] MEDS: FAMOTIDINE 20 MG TABLET PO SCH (20:08)
[2016-08-23] MEDS: amLODIPine BESYLATE 5 MG TABLET PO SCH (20:08)
[2016-08-23] MEDS: ACETAMINOPHEN 500 MG TABLET PO PRN (20:08)
[2016-08-23] MEDS: SIMVASTATIN 40 MG TABLET. PO SCH (20:08)
[2016-08-23] MEDS: PHENYTOIN SODIUM EXTENDED 100 MG CAPSULE PO SCH (20:09)
[2016-08-24 05:41] VITALS: BP 166/82
[2016-08-24] MEDS: hydroCHLOROthiazide 12.5 MG CAPSULE PO SCH (08:33)
[2016-08-24] MEDS: CALCIUM CARB/VIT D3 500/200 TABLET PO SCH ×2 (08:33→20:19)
[2016-08-24] MEDS: FOLIC ACID 1 MG TABLET PO SCH (08:34)
[2016-08-24] MEDS: POTASSIUM CHLORIDE 10 MEQ TABLET.ER. PO SCH ×2 (08:34→16:30)
[2016-08-24] MEDS: LOSARTAN 50 MG TABLET. PO SCH (08:34)
[2016-08-24] MEDS: CARVEDILOL 25 MG TABLET PO SCH ×3 (08:34→16:27)
[2016-08-24] MEDS: MUPIROCIN 2% TOPICAL OINTMENT 22GM TUBE. TP SCH ×2 (08:34→20:25)
[2016-08-24 14:54] VITALS: BP 139/69
[2016-08-24] MEDS ORDERED: WARFARIN 5 MG TABLET. PO ONE (16:30)
[2016-08-24 18:45] VITALS: BP 157/68
[2016-08-24] MEDS: SIMVASTATIN 40 MG TABLET. PO SCH (20:19)
[2016-08-24] MEDS: ACETAMINOPHEN 500 MG TABLET PO PRN (20:19)
[2016-08-24] MEDS: amLODIPine BESYLATE 5 MG TABLET PO SCH (20:19)
[2016-08-24] MEDS: FAMOTIDINE 20 MG TABLET PO SCH (20:20)
[2016-08-24] MEDS: PHENYTOIN SODIUM EXTENDED 100 MG CAPSULE PO SCH (20:20)
[2016-08-25 05:20] VITALS: BP 152/54
[2016-08-25] MEDS: FOLIC ACID 1 MG TABLET PO SCH (08:30)
[2016-08-25] MEDS: LOSARTAN 50 MG TABLET. PO SCH (08:30)
[2016-08-25] MEDS: CALCIUM CARB/VIT D3 500/200 TABLET PO SCH ×2 (08:30→20:27)
[2016-08-25] MEDS: hydroCHLOROthiazide 12.5 MG CAPSULE PO SCH (08:30)
[2016-08-25] MEDS: POTASSIUM CHLORIDE 10 MEQ TABLET.ER. PO SCH ×2 (08:31→16:17)
[2016-08-25] MEDS: CARVEDILOL 25 MG TABLET PO SCH ×3 (08:31→16:17)
[2016-08-25] MEDS: MUPIROCIN 2% TOPICAL OINTMENT 22GM TUBE. TP SCH ×2 (08:33→20:28)
[2016-08-25] MEDS ORDERED: WARFARIN 4 MG TABLET. PO ONE (16:00)
[2016-08-25 18:48] VITALS: BP 118/69
[2016-08-25] MEDS: SIMVASTATIN 40 MG TABLET. PO SCH (20:27)
[2016-08-25] MEDS: amLODIPine BESYLATE 5 MG TABLET PO SCH (20:27)
[2016-08-25] MEDS: FAMOTIDINE 20 MG TABLET PO SCH (20:27)
[2016-08-25] MEDS: PHENYTOIN SODIUM EXTENDED 100 MG CAPSULE PO SCH (20:28)
[2016-08-26] MEDS: ALENDRONATE SODIUM 70 MG TABLET PO SCH (05:17)
[2016-08-26 05:22] VITALS: BP 162/63
[2016-08-26] MEDS ORDERED: ALENDRONATE SODIUM 70 MG TABLET PO SCH (07:00)
[2016-08-26] MEDS: MUPIROCIN 2% TOPICAL OINTMENT 22GM TUBE. TP SCH ×2 (09:00→20:25)
[2016-08-26] MEDS: POTASSIUM CHLORIDE 10 MEQ TABLET.ER. PO SCH ×2 (09:33→17:43)
[2016-08-26] MEDS: FOLIC ACID 1 MG TABLET PO SCH (09:33)
[2016-08-26] MEDS: LOSARTAN 50 MG TABLET. PO SCH (09:33)
[2016-08-26] MEDS: hydroCHLOROthiazide 12.5 MG CAPSULE PO SCH (09:33)
[2016-08-26] MEDS: CALCIUM CARB/VIT D3 500/200 TABLET PO SCH ×2 (09:33→20:25)
[2016-08-26] MEDS: CARVEDILOL 25 MG TABLET PO SCH ×3 (09:33→17:42)
[2016-08-26] MEDS ORDERED: WARFARIN 4 MG TABLET. PO SCH (16:00)
[2016-08-26 18:13] VITALS: BP 139/82
[2016-08-26 19:40] VITALS: BP 139/71
[2016-08-26] MEDS: amLODIPine BESYLATE 5 MG TABLET PO SCH (20:25)
[2016-08-26] MEDS: PHENYTOIN SODIUM EXTENDED 100 MG CAPSULE PO SCH (20:25)
[2016-08-26] MEDS: SIMVASTATIN 40 MG TABLET. PO SCH (20:25)
[2016-08-26] MEDS: FAMOTIDINE 20 MG TABLET PO SCH (20:25)
[2016-08-27 05:03] VITALS: BP 165/68
[2016-08-27] MEDS: MUPIROCIN 2% TOPICAL OINTMENT 22GM TUBE. TP SCH (07:20)
[2016-08-27] MEDS: CARVEDILOL 25 MG TABLET PO SCH ×2 (08:10→12:00)
[2016-08-27] MEDS: POTASSIUM CHLORIDE 10 MEQ TABLET.ER. PO SCH (08:11)
[2016-08-27] MEDS: LOSARTAN 50 MG TABLET. PO SCH (08:12)
[2016-08-27] MEDS: CALCIUM CARB/VIT D3 500/200 TABLET PO SCH (08:13)
[2016-08-27] MEDS: hydroCHLOROthiazide 12.5 MG CAPSULE PO SCH (08:13)
[2016-08-27] MEDS: FOLIC ACID 1 MG TABLET PO SCH (08:23)
[2016-08-27] MEDS ORDERED: WARF4TAB7 PO (09:52)
[2016-08-27] MEDS ORDERED: HYDR12.53 PO (09:52)
[2016-08-27 12:00] VITALS: BP 165/68
== END 2016-08-27 13:15 | disposition home health service (06) | DRG 89 ==
LOC: 1 SOUTH 16:00 → UNDOADMIN 16:00 → 1 SOUTH 08-13 00:45
PROVIDERS: ADMIT Family Medicine; ATTEND Family Medicine
DX: S06.0X9A Concussion with loss of consciousness of unspecified duration, initial encounter (principal); E87.1 Hypo-osmolality and hyponatremia; R62.7 Adult failure to thrive; I10 Essential (primary) hypertension; E78.00 Pure hypercholesterolemia, unspecified; I48.0 Paroxysmal atrial fibrillation; R56.9 Unspecified convulsions; D63.8 Anemia in other chronic diseases classified elsewhere; W19.XXXA Unspecified fall, initial encounter; Y93.89 Activity, other specified; Y92.89 Other specified places as the place of occurrence of the external cause; Y99.8 Other external cause status; Z87.81 Personal history of (healed) traumatic fracture; Z86.73 Personal history of transient ischemic attack (TIA), and cerebral infarction without residual deficits; Z90.710 Acquired absence of both cervix and uterus
CPT/HCPCS: 36415; 80048; 82947; 85018; 85610; J1650; Q0163; 97110; 97116; 97530; 97535

== ENCOUNTER 2018-05-09 14:47 | Inpatient (IN) | payer MEDICARE, BC ==
[~2018-05-09] VITALS: Ht 157.5 cm; Wt 58.1 kg
[~2018-05-09 14:47] MED LIST changes: +ACET325T9 PO; +CALC-157 PO; +DIPH25CA58 PO; +HYDR-3165 PO; -HYDR-971 PO; -HYDR12.53 PO; +HYDR12.572 PO; +LOSA100T14 PO; -LOSA100T6 PO; +MUPI1OIN NS; +PHEN100C PO; +RANI300T PO; +WARF4TAB64 PO
[2018-05-09 15:46] LABS: BASO # 0.1 x10^3/uL (0.0-0.2); BASO % 1 % (0-3); EOS # 0.4 x10^3/uL (0.0-0.7); EOS % 5 % (0-3); HEMATOCRIT 36.5 % (36.0-47.0); HEMOGLOBIN 12.6 g/dL (12.0-15.5); LYMPH % 12 % (24-48); MEAN CORPUSCULAR HEMOGLOBIN 30 pg (25-35); MEAN CORPUSCULAR HGB CONC 35 g/dL (31-37); MEAN CORPUSCULAR VOLUME 87 fL (79-100); MONO % 12 % (0-9); NEUT # 5.7 x10^3uL (1.8-7.7); NEUT % 69 % (31-73); PLATELET COUNT 311 x10^3/uL (140-400); RED BLOOD COUNT 4.23 x10^6/uL (3.50-5.40); RED CELL DISTRIBUTION WIDTH 13.2 % (11.5-14.5); WHITE BLOOD COUNT 8.2 x10^3/uL (4.0-11.0)
--- NOTE | 2018-05-09 15:46 | PHYS DOC ---
Past History Past Medical History: GERD, High Cholesterol, Heart Disease, Hypertension Past Surgical History: Other Smoking: Non-smoker Alcohol Use: None Drug Use: None Adult General Chief Complaint Chief Complaint: MECHANICAL FALL HPI HPI Patient is a 82 year old female who presents with complaining of fall and injury to her chest. Patient states she was walking at her kitchen and lost her balance and had a fall and hit her sternal area against a wooden chair about an hour prior to arrival to ER. Patient denies loss of consciousness and head injury, focal neuro deficit, headache, shortness of breath, chest pain, fever and chills, nausea and vomiting, other injuries. Patient rated her pain at 7/10 and doesn't want to have pain medication. Review of Systems Review of Systems Constitutional: Denies fever or chills [] Eyes: Denies change in visual acuity, redness, or eye pain [] HENT: Denies nasal congestion or sore throat [] Respiratory: Denies cough or shortness of breath [] Cardiovascular: No additional information not addressed in HPI [] GI: Denies abdominal pain, nausea, vomiting, bloody stools or diarrhea [] : Denies dysuria or hematuria [] Musculoskeletal: Denies back pain or joint pain [] Integument: Denies rash or skin lesions [] Neurologic: Denies headache, focal weakness or sensory changes [] Endocrine: Denies polyuria or polydipsia [] All other systems were reviewed and found to be within normal limits, except as documented in this note. Current Medications Current Medications Current Medications Medications (Trade) Dose Ordered Sig/River Start Time Stop Time Status Last Admin Dose Admin Fentanyl Citrate (Fentanyl 2ml Vial) 25 mcg 1X ONCE 05/09/18 15:15 05/09/18 15:24 DC Allergies Allergies Allergies Coded Allergies Type Severity Reaction Last Updated Verified I S O L A T I O N *CONTACT* Allergy Unknown 08/12/16 Yes NKMA Allergy Unknown 08/12/16 Yes Physical Exam Physical Exam Constitutional: Well developed, well nourished, mild distress, non-toxic appearance. [] HENT: Normocephalic, atraumatic,oropharynx moist, no oral exudates, nose normal. [] Eyes: PERRLA, EOMI, conjunctiva normal, no discharge. [] Neck: Normal range of motion, no tenderness, supple, no stridor. [] Cardiovascular:Heart rate regular rhythm, no murmur [] Lungs & Thorax: Bilateral breath sounds clear to auscultation , low substernal area erythema and tenderness without deformity or crepitation or subcutaneous emphysema Abdomen: Bowel sounds normal, soft, no tenderness, no masses, no pulsatile masses. [] Skin: Warm, dry, no erythema, no rash. [] Back: No tenderness, no CVA tenderness. [] Extremities: No tenderness, no cyanosis, no clubbing, ROM intact, no edema. [] Neurologic: Alert and oriented X 3, normal motor function, normal sensory function, no focal deficits noted. [] Psychologic: Affect normal, judgement normal, mood normal. [] Current Patient Data Vital Signs Vital Signs Date Time Temp Pulse Resp B/P (MAP) Pulse Ox O2 Delivery O2 Flow Rate FiO2 05/09/18 14:55 Room Air 05/09/18 14:55 97.8 20 99 EKG EKG [] Radiology/Procedures Radiology/Procedures [address] [address] IMAGING REPORT Signed PATIENT: EZEQUIEL GARCIA ACCOUNT: [id number] : 1935 LOCATION: ER AGE: 82 SEX: F EXAM STATUS: REG ER ORD. PHYSICIAN: PATRICK CRAIG MD REASON: fall PROCEDURE: CT HEAD AND CERVICAL SPINE WO EXAM: 1. CT HEAD WITHOUT CONTRAST. 2. CT CERVICAL SPINE WITHOUT CONTRAST. HISTORY: Fall, headache, dizziness, neck pain. TECHNIQUE: Computed tomography of the head and cervical spine was performed without intravenous contrast. COMPARISON: None. FINDINGS: There is no intracranial hemorrhage. 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 Hypoattenuation within the periventricular white matter elsewhere indicates moderate chronic microangiopathic change. Prominence of the lateral ventricles and hemispheric sulci indicates mild to moderate atrophy. There is mild mucosal thickening within the ethmoid air cells. There are changes of bilateral cataract surgery. The temporal bones are unremarkable. The calvarium reveals no suspicious lesions. There are atherosclerotic calcifications of the internal carotid and vertebral arteries. The cervical examination is very limited by extensive motion artifact. There is artifactually simulates extensive listhesis throughout the upper cervical spine on the reconstructed images. No renal fracture is suspected though sensitivity is low. 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 Degenerative disc disease is moderate to severe from C5 through C7 and mild more superiorly. There is no prevertebral soft tissue swelling. A moderate posterior disc-osteophyte complex at C5-C6 results in mild appearing central canal stenosis. Additional central canal stenosis appears moderate at C4-5. IMPRESSION: 1. No acute intracranial findings. 2. Chronic right occipital infarct. Moderate atrophy and chronic microangiopathic white matter change. 3. Extensive motion artifact significantly limits the cervical spine CT. No clear fracture or malalignment is identified, though sensitivity is significantly decreased. Plain radiographs of the cervical spine could exclude malalignment if the patient cannot cooperate for CT. 4. Central canal stenosis appears moderate at C4-5 and mild at C5-6. *One or more of the following individualized dose reduction techniques were utilized for this examination: 1. Automated exposure control. 2. Adjustment of the mA and/or kV according to patient size. 3. Use of iterative reconstruction technique. Electronically signed by: Karen Herron MD (05/09/2018 4:37 PM) [facility] [place] AND SIGNED BY: TASH HERRON MD DATE: 05/09/18 163 CC: OBED PETTIT MD; PATRICK CRAIG MD ~ [place] [address] IMAGING REPORT Signed PATIENT: EZEQUIEL GARCIA ACCOUNT: [id number] : 1935 LOCATION: ER AGE: 82 SEX: F EXAM STATUS: REG ER ORD. PHYSICIAN: PATRICK CRAIG MD REASON: fall PROCEDURE: CT CHEST WO CONTRAST EXAM: CT OF THE CHEST WITHOUT CONTRAST. HISTORY: Fall, chest pain. TECHNIQUE: Computed tomography of the chest was performed without intravenous contrast. COMPARISON: None. FINDINGS: Images of the upper abdomen reveal a large hiatal hernia. There is wall thickening throughout the mid and distal esophagus. Bone windows reveal multiple moderate compression fractures within the mid and lower thoracic spine. These appear chronic. No clearly acute fractures are seen. There is mild exaggeration of the mid thoracic kyphosis. There is no clear retropulsion. There are no acute displaced rib fractures. There are no pathologically enlarged mediastinal or axillary lymph nodes. There is no pleural or pericardial effusion. The heart is mildly to moderately enlarged. There are atherosclerotic calcifications of the coronary arteries. Aortic valve calcifications are also noted. Lung windows reveal bilateral dependent atelectasis. There is no pneumothorax or acute infiltrate. IMPRESSION: 1. Large hiatal hernia. Diffuse esophageal wall thickening suggests esophagitis. 2. Moderate cardiomegaly. Aortic valve calcifications. Correlate for aortic stenosis. 3. Multiple moderate thoracic compression fractures appear chronic. *One or more of the following individualized dose reduction techniques were utilized for this examination: 1. Automated exposure control. 2. Adjustment of the mA and/or kV according to patient size. 3. Use of iterative reconstruction technique. Electronically signed by: Karen Herron MD (05/09/2018 4:40 PM) [facility] [place] AND SIGNED BY: TASH HERRON MD DATE: 05/09/18 9528 CC: OBED PETTIT MD; PATRICK CRAIG MD ~ Course & Med Decision Making Course & Med Decision Making Pertinent Labs and Imaging studies reviewed. (See chart for details) Evaluation of patient in ER showed 82-year-old female patient on Coumadin with accidental fall at home complaining of pain in the sternal area. Patient had labs showed sodium of 128 and INR of 5.4. CT head and chest was obtained without acute finding. Because of hyponatremia and elevation of INR and fall plan to admit patient. Dr. Pettit accepted admission at 1659. Dragon Disclaimer Dragon Disclaimer This electronic medical record was generated, in whole or in part, using a voice recognition dictation system. Departure Departure: Impression: Primary Impression: Coumadin toxicity Additional Impressions: Chest wall injury Fall at home Hiatal hernia Cardiomegaly Compression fx, thoracic spine Disposition: 09 ADMITTED INPATIENT (at 1700) Admitting Physician: Obed Pettit (accepted admission at 1659) Condition: IMPROVED Referrals: OBED PETTIT MD (PCP) Problem Qualifiers PATRICK CRAIG MD May 09, 2018 15:46
[2018-05-09 15:50] LABS: CALCIUM 8.3 mg/dL (8.5-10.1); CREATININE 0.7 mg/dL (0.6-1.0); GFR 80.1; POTASSIUM 3.7 mmol/L (3.5-5.1)
--- NOTE | 2018-05-09 16:41 | RAD ---
EXAM: 1. CT HEAD WITHOUT CONTRAST. 2. CT CERVICAL SPINE WITHOUT CONTRAST. HISTORY: Fall, headache, dizziness, neck pain. TECHNIQUE: Computed tomography of the head and cervical spine was performed without intravenous contrast. COMPARISON: None. FINDINGS: There is no intracranial hemorrhage. 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 Hypoattenuation within the periventricular white matter elsewhere indicates moderate chronic microangiopathic change. Prominence of the lateral ventricles and hemispheric sulci indicates mild to moderate atrophy. There is mild mucosal thickening within the ethmoid air cells. There are changes of bilateral cataract surgery. The temporal bones are unremarkable. The calvarium reveals no suspicious lesions. There are atherosclerotic calcifications of the internal carotid and vertebral arteries. The cervical examination is very limited by extensive motion artifact. There is artifactually simulates extensive listhesis throughout the upper cervical spine on the reconstructed images. No renal fracture is suspected though sensitivity is low. 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 Degenerative disc disease is moderate to severe from C5 through C7 and mild more superiorly. There is no prevertebral soft tissue swelling. A moderate posterior disc-osteophyte complex at C5-C6 results in mild appearing central canal stenosis. Additional central canal stenosis appears moderate at C4-5. IMPRESSION: 1. No acute intracranial findings. 2. Chronic right occipital infarct. Moderate atrophy and chronic microangiopathic white matter change. 3. Extensive motion artifact significantly limits the cervical spine CT. No clear fracture or malalignment is identified, though sensitivity is significantly decreased. Plain radiographs of the cervical spine could exclude malalignment if the patient cannot cooperate for CT. 4. Central canal stenosis appears moderate at C4-5 and mild at C5-6. *One or more of the following individualized dose reduction techniques were utilized for this examination: 1. Automated exposure control. 2. Adjustment of the mA and/or kV according to patient size. 3. Use of iterative reconstruction technique. Electronically signed by: Karen Herron MD (05/09/2018 4:37 PM) [facility] [place]
--- NOTE | 2018-05-09 16:45 | RAD ---
EXAM: CT OF THE CHEST WITHOUT CONTRAST. HISTORY: Fall, chest pain. TECHNIQUE: Computed tomography of the chest was performed without intravenous contrast. COMPARISON: None. FINDINGS: Images of the upper abdomen reveal a large hiatal hernia. There is wall thickening throughout the mid and distal esophagus. Bone windows reveal multiple moderate compression fractures within the mid and lower thoracic spine. These appear chronic. No clearly acute fractures are seen. There is mild exaggeration of the mid thoracic kyphosis. There is no clear retropulsion. There are no acute displaced rib fractures. There are no pathologically enlarged mediastinal or axillary lymph nodes. There is no pleural or pericardial effusion. The heart is mildly to moderately enlarged. There are atherosclerotic calcifications of the coronary arteries. Aortic valve calcifications are also noted. Lung windows reveal bilateral dependent atelectasis. There is no pneumothorax or acute infiltrate. IMPRESSION: 1. Large hiatal hernia. Diffuse esophageal wall thickening suggests esophagitis. 2. Moderate cardiomegaly. Aortic valve calcifications. Correlate for aortic stenosis. 3. Multiple moderate thoracic compression fractures appear chronic. *One or more of the following individualized dose reduction techniques were utilized for this examination: 1. Automated exposure control. 2. Adjustment of the mA and/or kV according to patient size. 3. Use of iterative reconstruction technique. Electronically signed by: Karen Herron MD (05/09/2018 4:40 PM) [facility] [place]
[2018-05-09] MEDS ORDERED: IV NORMAL SALINE 1,000ML 1,000 ML IV ONE (17:15)
[2018-05-09] MEDS ORDERED: ACETAMINOPHEN 325 MG TABLET PO PRN (18:45)
[2018-05-09] MEDS ORDERED: diphenhydrAMINE HCL 25 MG CAPSULE PO PRN (18:45)
[2018-05-09 20:07] VITALS: BP 175/69
[2018-05-09] MEDS: HYDROcodone/APAP 5/325MG 1 TAB TABLET PO PRN (21:30)
[2018-05-09] MEDS: PHENYTOIN SODIUM EXTENDED 100 MG CAPSULE PO SCH (21:30)
[2018-05-09] MEDS: ATORVASTATIN CALCIUM 20 MG TABLET PO SCH (21:31)
[2018-05-09] MEDS: amLODIPine BESYLATE 5 MG TABLET PO SCH (21:31)
[2018-05-09] MEDS: IV NORMAL SALINE 1,000ML 1,000 ML IV SCH (21:32)
[2018-05-09] MEDS: FAMOTIDINE 20 MG TABLET PO SCH (21:32)
[2018-05-09 23:00] VITALS: BP 123/73
[2018-05-10 05:27] VITALS: BP 134/69
[2018-05-10] MEDS: HYDROcodone/APAP 5/325MG 1 TAB TABLET PO PRN ×2 (05:36→12:54)
[2018-05-10 07:12] LABS: BASO # 0.1 x10^3/uL (0.0-0.2); BASO % 1 % (0-3); EOS # 0.3 x10^3/uL (0.0-0.7); EOS % 3 % (0-3); HEMATOCRIT 32.2 % (36.0-47.0); HEMOGLOBIN 11.4 g/dL (12.0-15.5); LYMPH # 0.9 x10^3/uL (1.0-4.8); LYMPH % 11 % (24-48); MEAN CORPUSCULAR HEMOGLOBIN 30 pg (25-35); MEAN CORPUSCULAR HGB CONC 35 g/dL (31-37); MEAN CORPUSCULAR VOLUME 86 fL (79-100); MONO % 12 % (0-9); NEUT # 5.9 x10^3uL (1.8-7.7); NEUT % 73 % (31-73); PLATELET COUNT 271 x10^3/uL (140-400); RED BLOOD COUNT 3.76 x10^6/uL (3.50-5.40); WHITE BLOOD COUNT 8.1 x10^3/uL (4.0-11.0)
[2018-05-10 07:23] LABS: CALCIUM 7.8 mg/dL (8.5-10.1); CREATININE 0.6 mg/dL (0.6-1.0); GFR 95.7; POTASSIUM 3.2 mmol/L (3.5-5.1)
[2018-05-10 07:31] LABS: BACTERIA,URINE FEW /HPF (0-FEW); BILIRUBIN,URINE NEG (NEG); CLARITY,URINE HAZY; COLOR,URINE YELLOW; GLUCOSE,URINE NEG (NEG); NITRITE,URINE NEG (NEG); RBC,URINE 20-40 /HPF (0-2); SQUAMOUS EPITHELIAL CELL,UR FEW /LPF; UROBILINOGEN,URINE 0.2 mg/dL (0.2 mg/dL); WBC,URINE >40 /HPF (0-4)
[2018-05-10] MEDS: LOSARTAN 50 MG TABLET. PO SCH (08:38)
[2018-05-10] MEDS: POTASSIUM CHLORIDE 10 MEQ TABLET.ER. PO SCH ×2 (08:39→17:31)
[2018-05-10] MEDS: CARVEDILOL 12.5 MG TABLET PO SCH ×3 (08:39→17:31)
[2018-05-10] MEDS: CALCIUM CARB/VIT D3 500/200 TABLET PO SCH ×2 (08:39→17:31)
[2018-05-10] MEDS: FOLIC ACID 1 MG TABLET PO SCH (08:39)
[2018-05-10] MEDS: IV NORMAL SALINE 1,000ML 1,000 ML IV SCH ×2 (08:46→23:40)
[2018-05-10] MEDS ORDERED: hydroCHLOROthiazide 12.5 MG CAPSULE PO SCH (09:00)
[2018-05-10] MEDS ORDERED: SODIUM CHLORIDE 3 % PREMIX 500 ML IV ONE (10:15)
[2018-05-10 11:00] VITALS: BP 146/70
[2018-05-10] MEDS ORDERED: SODIUM CHLORIDE 1 GM TABLET PO ONE (11:30)
[2018-05-10] MEDS ORDERED: ELECTROLYTE (NON-ICU) PROTOCOL MC PRN (11:45)
[2018-05-10] MEDS: IPRATRPIUM/ALBUTEROL 0.5/2.5MG 3 ML NEBU. NEB SCH ×3 (12:00→19:58)
[2018-05-10 12:06] LABS: PHENY 8.2 mcg/mL (10.0-20.0)
[2018-05-10] MEDS: BENZONATATE 100 MG CAPSULE. PO SCH ×2 (12:54→20:55)
--- NOTE | 2018-05-10 13:13 | HP ---
ADMIT DATE: 05/09/2018 HISTORY OF PRESENT ILLNESS: This 82-year-old female came in through the Emergency Room. The patient apparently had been falling, hit her chest. She lost her balance, hit the floor, wooden chair. The patient came in with head injury. Denies loss of consciousness. Denies chest pain or shortness of breath, but does have coughing spasms here for the last couple of weeks. The patient's sodium was noted to be low at about 124, and as a result of this, the patient was admitted for her falls with low sodium. MEDICATIONS: Diphenhydramine, warfarin 4 mg, Zocor 40, carvedilol 20, nisoldipine 17 mg, losartan potassium 100 mg daily, hydrocodone, Dilantin, calcium carbonate, potassium chloride, Zantac 300, folic acid, Fosamax 60, and PreserVision. ALLERGIES: No known allergies. 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 Influenza vaccine 2018, pneumococcal vaccine and she has also had nares with MRSA. SOCIAL HISTORY: Denies smoking, alcohol, or drug use. FAMILY HISTORY: Basically unremarkable. REVIEW OF SYSTEMS: As stated in the HPI, generalized weakness, dizziness, lightheadedness, but no chest pain or shortness of breath. The patient does have some coughing spasms. PHYSICAL EXAMINATION: VITAL SIGNS: Blood pressure 134/69, respiratory rate 20, pulse 70 and afebrile. GENERAL: The patient is alert and oriented x 3. Speech fluent, spontaneous, appropriate. Cranial nerves 2-12 grossly intact. LUNGS: Diminished throughout, but clear. CARDIOVASCULAR: Regular sinus rhythm. ABDOMEN: Soft, nontender, no rebound or guarding, positive bowel sounds, no hepatosplenomegaly was noted. EXTREMITIES: No clubbing, cyanosis, or edema. NEUROLOGIC: Intact. LABORATORY DATA: White count 8, hemoglobin and hematocrit 12 and 36. Labs show sodium of 125, potassium of 3.2. Urine shows greater than 40 white blood cells per high powered field. We will go ahead and continue to monitor the patient. IMPRESSION: Syndrome of inappropriate antidiuretic hormone, generalized weakness with falling at home, old compression fractures, urinary tract infection. Continue to monitor the patient accordingly and make further evaluation on her as indicated per those results. OBED PETTIT MD DR: MAHESH/kenya JOB#: [id number] / [id number]
[2018-05-10 15:00] VITALS: BP 121/68
[2018-05-10] MEDS ORDERED: ONDANSETRON PF 4 MG/2 ML VIAL. IV PRN (15:15)
[2018-05-10] MEDS: METOCLOPRAMIDE HCL 10 MG/10 ML SOLUTION. PO SCH ×2 (17:31→20:55)
[2018-05-10 17:36] VITALS: BP 156/63
[2018-05-10 19:45] VITALS: BP 159/70
[2018-05-10] MEDS: methylPREDNISolone SOD SUCC PF 40 MG/ML VIAL. IV SCH (20:54)
[2018-05-10] MEDS: FAMOTIDINE 20 MG TABLET PO SCH (20:54)
[2018-05-10] MEDS: PHENYTOIN SODIUM EXTENDED 100 MG CAPSULE PO SCH (20:54)
[2018-05-10] MEDS: ATORVASTATIN CALCIUM 20 MG TABLET PO SCH (20:55)
[2018-05-10] MEDS: amLODIPine BESYLATE 5 MG TABLET PO SCH (20:57)
[2018-05-10 22:33] VITALS: BP 138/55
[2018-05-11] MEDS: IPRATRPIUM/ALBUTEROL 0.5/2.5MG 3 ML NEBU. NEB SCH (05:29)
[2018-05-11 05:55] VITALS: BP 138/75
[2018-05-11] MEDS: IV NORMAL SALINE 1,000ML 1,000 ML IV SCH (05:57)
[2018-05-11] MEDS: CALCIUM CARB/VIT D3 500/200 TABLET PO SCH (06:01)
[2018-05-11 06:26] LABS: BASO % 1 % (0-3); EOS % 0 % (0-3); HEMATOCRIT 32.1 % (36.0-47.0); HEMOGLOBIN 11.2 g/dL (12.0-15.5); LYMPH # 0.8 x10^3/uL (1.0-4.8); LYMPH % 13 % (24-48); MEAN CORPUSCULAR HEMOGLOBIN 30 pg (25-35); MEAN CORPUSCULAR HGB CONC 35 g/dL (31-37); MEAN CORPUSCULAR VOLUME 86 fL (79-100); MONO # 0.6 x10^3/uL (0.0-1.1); MONO % 10 % (0-9); NEUT # 4.7 x10^3uL (1.8-7.7); NEUT % 76 % (31-73); PLATELET COUNT 243 x10^3/uL (140-400); RED BLOOD COUNT 3.74 x10^6/uL (3.50-5.40); RED CELL DISTRIBUTION WIDTH 12.9 % (11.5-14.5); WHITE BLOOD COUNT 6.2 x10^3/uL (4.0-11.0)
[2018-05-11 06:38] LABS: ALBUMIN 2.5 g/dL (3.4-5.0); ALBUMIN/GLOBULIN RATIO 0.7 (1.0-1.7); CREATININE 0.6 mg/dL (0.6-1.0); GFR 95.7; POTASSIUM 3.2 mmol/L (3.5-5.1); TOTAL BILIRUBIN 0.3 mg/dL (0.2-1.0); TOTAL PROTEIN 6.3 g/dL (6.4-8.2)
[2018-05-11] MEDS ORDERED: POTASSIUM CHLORIDE 20 MEQ TABLET.ER. PO ONE (07:00)
[2018-05-11] MEDS: POTASSIUM CHLORIDE 10 MEQ TABLET.ER. PO SCH (08:23)
[2018-05-11] MEDS: FOLIC ACID 1 MG TABLET PO SCH (08:23)
[2018-05-11] MEDS: BENZONATATE 100 MG CAPSULE. PO SCH (08:23)
[2018-05-11 08:24] VITALS: BP 138/75
[2018-05-11] MEDS: CARVEDILOL 12.5 MG TABLET PO SCH (08:24)
[2018-05-11] MEDS: METOCLOPRAMIDE HCL 10 MG/10 ML SOLUTION. PO SCH (08:24)
[2018-05-11] MEDS: LOSARTAN 50 MG TABLET. PO SCH (08:24)
[2018-05-11] MEDS: methylPREDNISolone SOD SUCC PF 40 MG/ML VIAL. IV SCH (08:27)
[2018-05-11] MEDS ORDERED: LACTOBACILLUS RHAMNOSUS GG 1 CAPSULE. PO SCH (09:00)
[2018-05-11] MEDS ORDERED: LEVO500T59 PO (09:27)
[2018-05-11] MEDS ORDERED: IPRA3AMP29 NEB (09:27)
[2018-05-11] MEDS ORDERED: METO10TA81 PO (09:31)
--- NOTE | 2018-05-11 09:45 | DS ---
DATE OF DISCHARGE: 05/11/2018 HOSPITAL COURSE: The patient apparently fell at home, was weak, tired and injured her chest. The patient's sodium was low at 104. She was brought in for that as well as possible urinary tract infection. Final culture is pending; however, the patient responded to Levaquin. Her labs, aside of her low sodium came up to 133 with fluid restriction and normal saline. The patient otherwise made good progress during the rest of her hospitalization and there were no complications noted. Her protime was also very high at 5.4. INR was brought down to 3.8. The patient otherwise seems to be resting fairly comfortably, making fairly good progress as an outpatient. She will continue to use her hydrochlorothiazide intermittently, use some Tessalon Perles for cough and Reglan for her hiatal hernia. OBED PETTIT MD DR: MAHESH/kenya JOB#: [id number] / [id number]
== END 2018-05-11 10:45 | disposition home health service (06) | DRG 644 ==
LOC: ER 14:47 → 1 SOUTH 17:46
PROVIDERS: ADMIT Family Medicine; ATTEND Family Medicine
DX: E22.2 Syndrome of inappropriate secretion of antidiuretic hormone (principal); N39.0 Urinary tract infection, site not specified; E44.0 Moderate protein-calorie malnutrition; E78.00 Pure hypercholesterolemia, unspecified; I11.9 Hypertensive heart disease without heart failure; K21.9 Gastro-esophageal reflux disease without esophagitis; K44.9 Diaphragmatic hernia without obstruction or gangrene; M48.02 Spinal stenosis, cervical region; T45.515A Adverse effect of anticoagulants, initial encounter; Y93.01 Activity, walking, marching and hiking; M48.54XD Collapsed vertebra, not elsewhere classified, thoracic region, subsequent encounter for fracture with routine healing; W01.0XXA Fall on same level from slipping, tripping and stumbling without subsequent striking against object, initial encounter; Y92.009 Unspecified place in unspecified non-institutional (private) residence as the place of occurrence of the external cause; Y99.8 Other external cause status; Z90.710 Acquired absence of both cervix and uterus
CPT/HCPCS: 36415; 70450; 71250; 72125; 80048; 80053; 80185; 81001; 85025; 85610; 87086; 87641; 94640; 96374; 96376; J1956; J2405; J2920; J3010; J7620; J8597; 99285-25; J7030

== ENCOUNTER → 2018-05-14 | Outpatient (CLI) | payer MEDICARE, BC ==
[2018-05-11 08:24] VITALS: BP 138/75
[~2018-05-14] MED LIST changes: +IPRA3AMP29 NEB; +LEVO500T59 PO; +METO10TA81 PO
[2018-05-14 16:16] LABS: ALBUMIN/GLOBULIN RATIO 0.8 (1.0-1.7); CALCIUM 8.5 mg/dL (8.5-10.1); CREATININE 0.8 mg/dL (0.6-1.0); GFR 68.7; POTASSIUM 3.5 mmol/L (3.5-5.1); TOTAL BILIRUBIN 0.2 mg/dL (0.2-1.0)
== END | disposition home or self-care (01) ==
LOC: LAB 13:15
PROVIDERS: ATTEND Family Medicine
DX: E87.1 Hypo-osmolality and hyponatremia (principal)
CPT/HCPCS: 36415; 80053

== ENCOUNTER → 2018-06-01 | Outpatient (CLI) | payer MEDICARE, BC ==
[2018-05-11 08:24] VITALS: BP 138/75
[2018-06-01 11:54] LABS: ALBUMIN/GLOBULIN RATIO 0.8 (1.0-1.7); CALCIUM 8.6 mg/dL (8.5-10.1); CREATININE 0.7 mg/dL (0.6-1.0); GFR 80.1; POTASSIUM 4.1 mmol/L (3.5-5.1); TOTAL BILIRUBIN 0.4 mg/dL (0.2-1.0); TOTAL PROTEIN 6.9 g/dL (6.4-8.2)
== END | disposition home or self-care (01) ==
LOC: SPEC 11:25
PROVIDERS: ATTEND Family Medicine
DX: I11.9 Hypertensive heart disease without heart failure (principal); E87.1 Hypo-osmolality and hyponatremia; I69.354 Hemiplegia and hemiparesis following cerebral infarction affecting left non-dominant side
CPT/HCPCS: 36415; 80053

== ENCOUNTER → 2018-06-25 | Outpatient (CLI) | payer MEDICARE, BC ==
[~2018-06-25] MED LIST changes: -ALEN70TA5 PO; +ALEN70TA60 PO
[2018-06-25 15:38] LABS: ALBUMIN/GLOBULIN RATIO 0.7 (1.0-1.7); CALCIUM 8.4 mg/dL (8.5-10.1); CREATININE 0.7 mg/dL (0.6-1.0); GFR 80.1; POTASSIUM 3.5 mmol/L (3.5-5.1); TOTAL BILIRUBIN 0.2 mg/dL (0.2-1.0); TOTAL PROTEIN 7.3 g/dL (6.4-8.2)
== END | disposition home or self-care (01) ==
LOC: SPEC 15:01
PROVIDERS: ATTEND Family Medicine
DX: I11.9 Hypertensive heart disease without heart failure (principal); I48.0 Paroxysmal atrial fibrillation; E87.1 Hypo-osmolality and hyponatremia; I69.354 Hemiplegia and hemiparesis following cerebral infarction affecting left non-dominant side
CPT/HCPCS: 36415; 80053

== ENCOUNTER → 2018-07-07 | Outpatient (CLI) | payer MEDICARE, BC ==
[~2018-07-07] MED LIST changes: +AFLI2VIA IO; +ALEN70TA6 PO; -ALEN70TA60 PO; +CYCL5TAB PO; +DEMECLOCYCLINE PO; +DONE5TAB7 PO; +FENT-73 TD; +FLUO10TA PO; +HYDR-2868 PO; +LIDO700A39 TD; +NYST60PO TP; +ONDA4TAB12 PO; +OXYC1TAB15 PO; +PANT20TA58 PO; +POTA20TA4 PO; +VIT1CAPS12 PO; +WARF3TAB50 PO
[2018-07-07 11:42] LABS: ALBUMIN 3.1 g/dL (3.4-5.0); ALBUMIN/GLOBULIN RATIO 0.7 (1.0-1.7); CALCIUM 8.8 mg/dL (8.5-10.1); CREATININE 0.8 mg/dL (0.6-1.0); GFR 68.7; POTASSIUM 4.6 mmol/L (3.5-5.1); TOTAL BILIRUBIN 0.3 mg/dL (0.2-1.0); TOTAL PROTEIN 7.3 g/dL (6.4-8.2)
== END | disposition home or self-care (01) ==
LOC: SPEC 11:17
PROVIDERS: ATTEND Family Medicine
DX: E87.1 Hypo-osmolality and hyponatremia (principal); I69.354 Hemiplegia and hemiparesis following cerebral infarction affecting left non-dominant side; I11.9 Hypertensive heart disease without heart failure; I48.0 Paroxysmal atrial fibrillation
CPT/HCPCS: 36415; 80053

== ENCOUNTER → 2018-07-13 | Outpatient (CLI) | payer MEDICARE, BC ==
[2018-07-13 15:36] LABS: CALCIUM 8.6 mg/dL (8.5-10.1); CREATININE 0.7 mg/dL (0.6-1.0); GFR 80.1; POTASSIUM 4.1 mmol/L (3.5-5.1)
[2018-07-14 02:06] LABS: MICRO CREAT RATIO <5.5 mg/g creat (0.0-30.0); MICROALB RD UR <3.0 ug/mL (Not Estab.); UR PROTEIN RD 8.2 mg/dL (Not Estab.)
== END | disposition home or self-care (01) ==
LOC: SPEC 14:54
PROVIDERS: ATTEND Internal Medicine Nephrology
DX: E87.1 Hypo-osmolality and hyponatremia (principal); Z68.23 Body mass index [BMI] 23.0-23.9, adult
CPT/HCPCS: 36415; 80048; 82043; 82570; 84156; 84300

== ENCOUNTER → 2018-07-20 | Outpatient (CLI) | payer MEDICARE, BC ==
[2018-07-20 11:18] LABS: ALBUMIN 2.9 g/dL (3.4-5.0); ALBUMIN/GLOBULIN RATIO 0.8 (1.0-1.7); CALCIUM 8.4 mg/dL (8.5-10.1); CREATININE 0.7 mg/dL (0.6-1.0); GFR 80.1; POTASSIUM 4.1 mmol/L (3.5-5.1); TOTAL BILIRUBIN 0.3 mg/dL (0.2-1.0); TOTAL PROTEIN 6.7 g/dL (6.4-8.2)
== END | disposition home or self-care (01) ==
LOC: SPEC 10:40
PROVIDERS: ATTEND Family Medicine
DX: E87.1 Hypo-osmolality and hyponatremia (principal)
CPT/HCPCS: 36415; 80053

== ENCOUNTER → 2018-07-27 | Outpatient (CLI) | payer MEDICARE, BC ==
[2018-07-27 13:11] LABS: ALBUMIN 2.7 g/dL (3.4-5.0); ALBUMIN/GLOBULIN RATIO 0.7 (1.0-1.7); CALCIUM 8.1 mg/dL (8.5-10.1); CREATININE 0.7 mg/dL (0.6-1.0); GFR 80.1; POTASSIUM 4.1 mmol/L (3.5-5.1); TOTAL BILIRUBIN 0.3 mg/dL (0.2-1.0); TOTAL PROTEIN 6.5 g/dL (6.4-8.2)
== END | disposition home or self-care (01) ==
LOC: SPEC 12:54
PROVIDERS: ATTEND Family Medicine
DX: E87.1 Hypo-osmolality and hyponatremia (principal)
CPT/HCPCS: 36415; 80053

== ENCOUNTER → 2018-08-03 | Outpatient (CLI) | payer MEDICARE, BC ==
[2018-08-03 17:05] LABS: ALBUMIN 2.7 g/dL (3.4-5.0); ALBUMIN/GLOBULIN RATIO 0.8 (1.0-1.7); CALCIUM 8.7 mg/dL (8.5-10.1); CREATININE 1.1 mg/dL (0.6-1.0); GFR 47.6; POTASSIUM 4.4 mmol/L (3.5-5.1); TOTAL BILIRUBIN 0.2 mg/dL (0.2-1.0); TOTAL PROTEIN 6.3 g/dL (6.4-8.2)
== END | disposition home or self-care (01) ==
LOC: SPEC 15:03
PROVIDERS: ATTEND Family Medicine
DX: E87.1 Hypo-osmolality and hyponatremia (principal)
CPT/HCPCS: 36415; 80053

== ENCOUNTER → 2018-08-19 | Outpatient (CLI) | payer MEDICARE, BC ==
[2018-08-19 10:57] LABS: ALBUMIN 2.8 g/dL (3.4-5.0); ALBUMIN/GLOBULIN RATIO 0.7 (1.0-1.7); CALCIUM 8.8 mg/dL (8.5-10.1); CREATININE 0.8 mg/dL (0.6-1.0); GFR 68.7; POTASSIUM 4.3 mmol/L (3.5-5.1); TOTAL BILIRUBIN 0.3 mg/dL (0.2-1.0)
== END | disposition home or self-care (01) ==
LOC: SPEC 10:36
PROVIDERS: ATTEND Family Medicine
DX: I11.9 Hypertensive heart disease without heart failure (principal); I48.0 Paroxysmal atrial fibrillation; I69.354 Hemiplegia and hemiparesis following cerebral infarction affecting left non-dominant side; E87.1 Hypo-osmolality and hyponatremia
CPT/HCPCS: 36415; 80053

== ENCOUNTER 2018-08-25 16:47 | Emergency (ER) | payer MEDICARE, BC ==
[~2018-08-25] VITALS: Ht 157.5 cm; Wt 55.5 kg
[~2018-08-25 16:47] MED LIST changes: -AFLI2VIA IO; -CYCL5TAB PO; -DEMECLOCYCLINE PO; -DONE5TAB7 PO; -FENT-73 TD; -FLUO10TA PO; -HYDR-2868 PO; -LIDO700A39 TD; -NYST60PO TP; -ONDA4TAB12 PO; -OXYC1TAB15 PO; -PANT20TA58 PO; -POTA20TA4 PO; -VIT1CAPS12 PO; -WARF3TAB50 PO
--- NOTE | 2018-08-25 17:19 | PHYS DOC ---
Past History Past Medical History: GERD, High Cholesterol, Heart Disease, Hypertension (CHRISTY MANCIA DO) Past Surgical History: Hysterectomy, Other (CHRISTY MANCIA DO) Smoking: Non-smoker Alcohol Use: None Drug Use: None (CHRISTY MANCIA DO) Adult General Chief Complaint Chief Complaint: MECHANICAL FALL HPI HPI 82-year-old female presents after fall at home. The patient is not exactly sure what caused her to fall. She fell in her kitchen and landed on her left side. She doesn't believe that she lost consciousness, but is not able to tell me exactly what was going on right before she woke up on the floor. The patient's once in the other room and did not see her fall. The patient is alert and oriented. She is not complaining of any neurological complaints or headache. She does have left shoulder pain and is unwilling to move that arm due to pain. He has some left rib discomfort but is not short of breath. She denies recent illness. She denies fever or chills. She is on Coumadin and they've been adjusting her dose because her INR has been too high. (CHRISTY MANCIA DO) Review of Systems Review of Systems Constitutional: Denies fever or chills [] Eyes: Denies change in visual acuity, redness, or eye pain [] HENT: Denies nasal congestion or sore throat [] Respiratory: Denies cough or shortness of breath [] Cardiovascular: No additional information not addressed in HPI [] GI: Denies abdominal pain, nausea, vomiting, bloody stools or diarrhea [] : Denies dysuria or hematuria [] Musculoskeletal: Left shoulder and left rib pain[] Integument: Denies rash or skin lesions [] Neurologic: Syncope Denies headache, focal weakness or sensory changes [] Endocrine: Denies polyuria or polydipsia [] All other systems were reviewed and found to be within normal limits, except as documented in this note. (CHRISTY MANCIA DO) Allergies Allergies Allergies Coded Allergies Type Severity Reaction Last Updated Verified I S O L A T I O N *CONTACT* Allergy Unknown 08/12/16 Yes NKMA Allergy Unknown 08/12/16 Yes (CHRISTY MANCIA DO) Physical Exam Physical Exam Constitutional: Well developed, well nourished, no acute distress, non-toxic appearance. [] HENT: Normocephalic, atraumatic, bilateral external ears normal, oropharynx moist, no oral exudates, nose normal. [] Eyes: PERRLA, EOMI, conjunctiva normal, no discharge. [] Neck: Normal range of motion, no tenderness, supple, no stridor. [] Cardiovascular:Heart rate regular rhythm, no murmur [] Lungs & Thorax: Bilateral breath sounds clear to auscultation [] Abdomen: Bowel sounds normal, soft, no tenderness, no masses, no pulsatile masses. [] Skin: Warm, dry, no erythema, no rash. [] Back: No tenderness, no CVA tenderness. [] Extremities: Left shoulder tender to palpation, range of motion not tested due to pain. [] Neurologic: Alert and oriented X 3, normal motor function, normal sensory function, no focal deficits noted. [] Psychologic: Affect normal, judgement normal, mood normal. [] (CHRISTY MANCIA DO) Current Patient Data Vital Signs Vital Signs Date Time Temp Pulse Resp B/P (MAP) Pulse Ox O2 Delivery O2 Flow Rate FiO2 08/25/18 17:00 98.1 74 18 100 Room Air (CHRISTY MANCIA DO) EKG EKG [] (CHRISTY MANCIA DO) Radiology/Procedures Radiology/Procedures [] (CHRISTY MANCIA DO) Course & Med Decision Making Course & Med Decision Making Pertinent Labs and Imaging studies reviewed. (See chart for details) The patient's workup is pending. I'm signing her out to Dr. Huerta at 1740. [] (CHRISTY MANCIA DO) Course & Med Decision Making CXR- atelectasis, cardiomegaly, chronic changes, no pneumothorax, Lt shoulder DJD- area of concern for new fx on old fx. . CT head shows no shift, mass, edema, bleed, or fracture. Does have findings of Rt susceptible encephalomalacia. Generalized atrophy. Lt. arm sling for comfort. Distal circulation and sensation equal to Rt. hand. Follow up with Dr. Pettit and orthropedics. Fall precautions. 1. Fall 2. Lt. side weakness- Chronic 3. Lt. shoulder injury- Acute on Chronic- ( Suspect new fx- chronic) Hx. prior fx. Lt. shoulder. 4. Therapeutic INR 5. Anemia 11.8 6. Hyponatremia 131 7. Chest Wall Contusion (JACKY HUERTA MD) Dragon Disclaimer Dragon Disclaimer This electronic medical record was generated, in whole or in part, using a voice recognition dictation system. (CHRISTY MANCIA DO) Departure Departure: Referrals: OBED PETTIT MD (PCP) Scripts Oxycodone Hcl/Acetaminophen (PERCOCET 5-325 MG TABLET ) 1 Each Tablet 1 TAB PO PRN Q6HRS PRN for PAIN, #30 TAB Prov: JACKY HUERTA MD 08/25/18 CHRISTY MANCIA DO Aug 25, 2018 17:19 JACKY HUERTA MD Aug 25, 2018 23:05
[2018-08-25 17:23] LABS: BASO # 0.1 x10^3/uL (0.0-0.2); BASO % 1 % (0-3); EOS # 0.3 x10^3/uL (0.0-0.7); EOS % 4 % (0-3); HEMATOCRIT 34.7 % (36.0-47.0); HEMOGLOBIN 11.8 g/dL (12.0-15.5); LYMPH # 0.8 x10^3/uL (1.0-4.8); LYMPH % 11 % (24-48); MEAN CORPUSCULAR HEMOGLOBIN 30 pg (25-35); MEAN CORPUSCULAR HGB CONC 34 g/dL (31-37); MEAN CORPUSCULAR VOLUME 87 fL (79-100); MONO # 0.7 x10^3/uL (0.0-1.1); MONO % 9 % (0-9); NEUT % 76 % (31-73); PLATELET COUNT 255 x10^3/uL (140-400); RED BLOOD COUNT 4.01 x10^6/uL (3.50-5.40); RED CELL DISTRIBUTION WIDTH 13.7 % (11.5-14.5); WHITE BLOOD COUNT 7.9 x10^3/uL (4.0-11.0)
[2018-08-25 17:44] LABS: ALBUMIN 2.7 g/dL (3.4-5.0); ALBUMIN/GLOBULIN RATIO 0.7 (1.0-1.7); CALCIUM 8.4 mg/dL (8.5-10.1); CREATININE 0.8 mg/dL (0.6-1.0); GFR 68.7; POTASSIUM 4.4 mmol/L (3.5-5.1); TOTAL BILIRUBIN 0.2 mg/dL (0.2-1.0); TOTAL PROTEIN 6.7 g/dL (6.4-8.2)
--- NOTE | 2018-08-25 17:47 | RAD ---
CT HEAD WO CONTRAST History: FALL TODAY, UNKNOWN INJURY TO HEAD Comparison: May 09, 2018 Technique: Noncontrast CT imaging was performed of the head. Exposure: One or more of the following individualized dose reduction techniques were utilized for this examination: 1. Automated exposure control 2. Adjustment of the mA and/or kV according to patient size 3. Use of iterative reconstruction technique. Findings: No acute intracranial hemorrhage is identified. There is again encephalomalacia with cortical involvement centered in the right occipital lobe. There is other ill-defined low-density of the supratentorial parenchyma bilaterally. There is again third and lateral ventriculomegaly although there is generalized supratentorial atrophy present. There is no new intra-axial mass effect or midline shift. Paranasal sinuses and mastoid air cells are aerated. There is atherosclerotic calcification carotid siphons bilaterally. Impression: 1. No acute intracranial abnormality is identified. There is again encephalomalacia centered in the right occipital lobe with cortical involvement. Other ill-defined low-density of the supratentorial parenchyma is more commonly due to chronic microvascular ischemic disease in a pain this age. There is again third and lateral ventriculomegaly although there is supratentorial atrophy present. Electronically signed by: Eyal Grider MD (08/25/2018 5:44 PM) [facility]
[2018-08-25] MEDS ORDERED: OXYC1TAB15 PO (18:18)
[2018-08-25] MEDS ORDERED: oxyCODONE/APAP 5/325 1 TAB TABLET PO ONE (18:30)
[2018-08-25 18:43] VITALS: BP 145/60
[2018-08-25 18:59] LABS: BILIRUBIN,URINE NEG (NEG); CLARITY,URINE CLEAR; COLOR,URINE YELLOW; GLUCOSE,URINE NEG (NEG)
[2018-08-25 19:00] LABS: BACTERIA,URINE 0 /HPF (0-FEW); NITRITE,URINE NEG (NEG); SQUAMOUS EPITHELIAL CELL,UR OCC /LPF; UROBILINOGEN,URINE 0.2 mg/dL (0.2 mg/dL); WBC,URINE OCC /HPF (0-4)
--- NOTE | 2018-08-26 08:23 | RAD ---
3 view study of the left shoulder Clinical indications: Limited range of motion. Left shoulder pain after a fall today. FINDINGS: There is a deformity of the proximal left humerus due to an old healed fracture. No acute-appearing fracture is evident. No AC joint separation is seen. Mild primary degenerative osteoarthritis of the left glenohumeral joint. IMPRESSION: Old healed fracture of the proximal left humerus. No acute fracture. Electronically signed by: Deny Theodore MD (08/26/2018 8:20 AM) [facility]
--- NOTE | 2018-08-26 08:33 | RAD ---
2 view Left rib detail series and PA view chest x-ray. INDICATIONS: Fall. Pain. Findings: There is a subacute healing minimally displaced fracture of the lateral aspect of the left third rib. There is a nondisplaced acute-appearing fracture of the lateral aspect of the left ninth rib. Chest x-ray demonstrates no lung infiltrate or pulmonary edema. Small left-sided effusion is seen. No pneumothorax is evident. Heart size is enlarged but stable. The mediastinum and pulmonary vasculature and both irma are unremarkable. IMPRESSION: Acute fracture of the lateral aspect of the left ninth rib. Subacute healing fracture of the lateral aspect of the left third rib. Electronically signed by: Deny Theodore MD (08/26/2018 8:30 AM) [place] [id number]
--- NOTE | 2018-08-26 09:45 | EKG ---
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
[2018-09-23] MEDS ORDERED: NYST60PO TP (11:54)
[2018-09-23] MEDS ORDERED: LIDO700A39 TD (11:54)
[2018-09-23] MEDS ORDERED: FENT-73 TD (11:54)
[2018-09-23] MEDS ORDERED: ONDA4TAB12 PO (11:54)
== END 2018-08-25 19:24 | disposition home or self-care (01) ==
LOC: ER 16:47
DX: S49.92XA Unspecified injury of left shoulder and upper arm, initial encounter (principal); S20.212A Contusion of left front wall of thorax, initial encounter; E87.1 Hypo-osmolality and hyponatremia; D64.9 Anemia, unspecified; R53.1 Weakness; K21.9 Gastro-esophageal reflux disease without esophagitis; E78.00 Pure hypercholesterolemia, unspecified; I11.9 Hypertensive heart disease without heart failure; Z91.041 Radiographic dye allergy status; W18.39XA Other fall on same level, initial encounter; Y93.89 Activity, other specified; Y92.090 Kitchen in other non-institutional residence as the place of occurrence of the external cause; Y99.8 Other external cause status
CPT/HCPCS: 36415; 70450; 71101; 73030; 80053; 81001; 84484; 85025; 85045; 85610; 85730; 93005; 99285-25

== ENCOUNTER → 2018-09-08 | Outpatient (CLI) | payer MEDICARE, BC ==
[2018-08-25 18:43] VITALS: BP 145/60
[~2018-09-08] MED LIST changes: +AFLI2VIA IO; +CYCL5TAB PO; +DEMECLOCYCLINE PO; +DONE5TAB7 PO; +FENT-73 TD; +FLUO10TA PO; +HYDR-2868 PO; +LIDO700A39 TD; +NYST60PO TP; +ONDA4TAB12 PO; +OXYC1TAB15 PO; +PANT20TA58 PO; +POTA20TA4 PO; +VIT1CAPS12 PO; +WARF3TAB50 PO
[2018-09-08 11:32] LABS: ALBUMIN 2.7 g/dL (3.4-5.0); ALBUMIN/GLOBULIN RATIO 0.7 (1.0-1.7); CALCIUM 8.6 mg/dL (8.5-10.1); CREATININE 0.9 mg/dL (0.6-1.0); GFR 59.8; POTASSIUM 3.9 mmol/L (3.5-5.1); TOTAL BILIRUBIN 0.3 mg/dL (0.2-1.0); TOTAL PROTEIN 6.7 g/dL (6.4-8.2)
== END | disposition home or self-care (01) ==
LOC: SPEC 11:14
PROVIDERS: ATTEND Family Medicine
DX: I48.0 Paroxysmal atrial fibrillation (principal); E22.2 Syndrome of inappropriate secretion of antidiuretic hormone; I11.9 Hypertensive heart disease without heart failure; I69.354 Hemiplegia and hemiparesis following cerebral infarction affecting left non-dominant side
CPT/HCPCS: 36415; 80053

== ENCOUNTER 2018-09-10 00:51 | Inpatient (IN) | payer MEDICARE, BC ==
[~2018-09-10] VITALS: Ht 157.5 cm; Wt 52.2 kg
[~2018-09-10 00:51] MED LIST changes: -AFLI2VIA IO; -CYCL5TAB PO; -DEMECLOCYCLINE PO; -DONE5TAB7 PO; -FENT-73 TD; -FLUO10TA PO; -HYDR-2868 PO; -LIDO700A39 TD; -NYST60PO TP; -ONDA4TAB12 PO; -PANT20TA58 PO; -POTA20TA4 PO; -VIT1CAPS12 PO; -WARF3TAB50 PO
--- NOTE | 2018-09-10 01:06 | PHYS DOC ---
Past History Past Medical History: GERD, High Cholesterol, Heart Disease, Hypertension Past Surgical History: Hysterectomy, Other Smoking: Non-smoker Alcohol Use: None Drug Use: None Adult General Chief Complaint Chief Complaint: RIB PAIN [facility] HPI Patient is a 83-year-old female presents with sudden onset of sharp left-sided chest discomfort when getting up from a chair. She has a recent rib injury. Has taken no pain medicine. This happened at approximately midnight. No new trauma since the rib injury. No respirophasic component. No radiation of the discomfort. Nothing seems to make the discomfort better or worse. Pain is getting better over time. Pain is moderate in intensity.[] Review of Systems Review of Systems Constitutional: Denies fever or chills [] Eyes: Denies change in visual acuity, redness, or eye pain [] HENT: Denies nasal congestion or sore throat [] Respiratory: Denies cough or shortness of breath [] Cardiovascular: No additional information not addressed in HPI [] GI: Denies abdominal pain, nausea, vomiting, bloody stools or diarrhea [] : Denies dysuria or hematuria [] Musculoskeletal: Denies back pain or joint pain [] Integument: Denies rash or skin lesions [] Neurologic: Denies headache, focal weakness or sensory changes [] Endocrine: Denies polyuria or polydipsia [] All other systems were reviewed and found to be within normal limits, except as documented in this note. Allergies Allergies Allergies Coded Allergies Type Severity Reaction Last Updated Verified I S O L A T I O N *CONTACT* Allergy Unknown 08/12/16 Yes NKMA Allergy Unknown 08/12/16 Yes Physical Exam Physical Exam Constitutional: Well developed, well nourished, no acute distress, non-toxic appearance. [] HENT: Normocephalic, atraumatic, bilateral external ears normal, oropharynx moist, no oral exudates, nose normal. [] Eyes: PERRLA, EOMI, conjunctiva normal, no discharge. [] Neck: Normal range of motion, no tenderness, supple, no stridor. [] Cardiovascular:Heart rate regular rhythm, no murmur [] Lungs & Thorax: Bilateral breath sounds clear to auscultation [] Abdomen: Bowel sounds normal, soft, no tenderness, no masses, no pulsatile masses. [] Skin: Warm, dry, no erythema, no rash. [] Back: No tenderness, no CVA tenderness. [] Extremities: No tenderness, no cyanosis, no clubbing, ROM intact, no edema. [] Neurologic: Alert and oriented X 3, normal motor function, normal sensory function, no focal deficits noted. [] Psychologic: Affect normal, judgement normal, mood normal. [] EKG EKG [] Radiology/Procedures Radiology/Procedures Chest x-ray and rib series shows no acute changes from 08/25/2018[] Course & Med Decision Making Course & Med Decision Making Pertinent Labs and Imaging studies reviewed. (See chart for details) ED course: Patient arrived, was placed in bed, and tolerated exam well. She was transported to and from radiology with any complications. She was noted to have visible muscle spasms in her chest wall that also caused some of this similar discomfort. Due to inability to function at home, needing significant assistance which family is not able to provide, and unable to perform ADLs, consultation was made with her primary care physician who graciously admitted her. Findings and plan were discussed with patient and family who voiced understanding. Patient was admitted in improved condition. Medical decision making: Patient with rib fractures noted on chest x-ray of , no acute fractures were noted today. There is no evidence of pneumonia, pneumothorax, nor hemothorax. This does not appear to be an acute coronary syndrome. Given the significant amount of nursing assistance required just get the patient up from chair and inability to find a position of comfort, along with limited support at home, electing to admit the patient for pain management and possible placement for rehabilitation while she heals.[] Dragon Disclaimer Dragon Disclaimer This electronic medical record was generated, in whole or in part, using a voice recognition dictation system. Departure Departure: Impression: Primary Impression: Rib pain on left side Disposition: ADMITTED INPATIENT Admitting Physician: Toño Palumbo Condition: IMPROVED Referrals: TOÑO PALUMBO MD (PCP) Follow-up in 2 days Patient Instructions: Rib Fracture Additional Instructions: Follow-up with your regular doctor in 2 days. Return to the ER if worsening discomfort, difficulty breathing, or any other concerns. Scripts Acetaminophen (TYLENOL) 325 Mg Tablet 1-2 TAB PO QID for PAIN, #60 TAB 0 Refills Prov: JOHANNA NEWTON DO 09/10/18 Cyclobenzaprine Hcl (CYCLOBENZAPRINE HCL) 5 Mg Tablet 1 TAB PO TID for pain/spasm, #30 TAB Prov: JOHANNA NEWTON DO 09/10/18 JOHANNA NEWTON DO September 10, 2018 01:06
[2018-09-10] MEDS ORDERED: ACETAMINOPHEN 325 MG TABLET PO ONE (01:30)
[2018-09-10] MEDS ORDERED: CYCLOBENZAPRINE 10 MG TABLET. PO ONE (01:45)
[2018-09-10] MEDS ORDERED: ACET325T9 PO (01:46)
[2018-09-10] MEDS ORDERED: CYCL5TAB PO (01:46)
[2018-09-10] MEDS ORDERED: MORPHINE SULFATE 2 MG/ML DISP.SYRIN. IV PRN (02:30)
[2018-09-10] MEDS ORDERED: ONDANSETRON PF 4 MG/2 ML VIAL. IV PRN (02:30)
[2018-09-10] MEDS ORDERED: POTA20TA4 PO (03:41)
[2018-09-10] MEDS ORDERED: VIT1CAPS12 PO (03:41)
[2018-09-10] MEDS ORDERED: DONE5TAB7 PO (03:41)
[2018-09-10] MEDS ORDERED: HYDR-2868 PO (03:41)
[2018-09-10] MEDS ORDERED: DEMECLOCYCLINE PO (03:41)
[2018-09-10] MEDS ORDERED: PANT20TA58 PO (03:41)
[2018-09-10] MEDS ORDERED: CALC-157 PO (03:41)
[2018-09-10] MEDS ORDERED: CARV25TA2 PO (03:41)
[2018-09-10] MEDS ORDERED: WARF3TAB50 PO (03:41)
[2018-09-10] MEDS ORDERED: FLUO10TA PO (03:41)
[2018-09-10] MEDS ORDERED: AFLI2VIA IO (03:43)
[2018-09-10 03:44] VITALS: BP 168/71
--- NOTE | 2018-09-10 08:17 | RAD ---
Left RIBS with chest, 3 views, 09/10/2018: HISTORY: Sharp left chest pain The bony structures are demineralized. There is mild deformity of the lateral aspect of the left third rib compatible with an old fracture. No definite acute rib fracture is seen. There is extensive costochondral calcification. There are moderate hypertrophic degenerative changes in the spine. There is no evidence of underlying pneumothorax, hemothorax or pulmonary infiltrate. The heart is mildly enlarged. There is calcific plaquing of the aorta. IMPRESSION: 1. Demineralization. 2. Old left third rib fracture. 3. No acute left rib abnormality is detected. Electronically signed by: Ilir Oliver MD (09/10/2018 8:14 AM) [facility]
[2018-09-10] MEDS ORDERED: AFLIBERCEPT IO SCH (08:30)
[2018-09-10] MEDS: LOSARTAN 50 MG TABLET. PO SCH (08:41)
[2018-09-10] MEDS: ACETAMINOPHEN 325 MG TABLET PO PRN ×2 (08:41→21:24)
[2018-09-10] MEDS: hydrALAZINE 25 MG TABLET PO SCH ×3 (08:42→16:13)
[2018-09-10] MEDS: CARVEDILOL 12.5 MG TABLET PO SCH ×3 (08:42→16:12)
[2018-09-10] MEDS: MULTIVITAMIN I-VITE TABLET. PO SCH ×2 (08:52→16:12)
[2018-09-10] MEDS: FLUoxetine HCL 10 MG CAPSULE PO SCH (08:52)
[2018-09-10] MEDS: PANTOPRAZOLE 40 MG TABLET. PO SCH (08:53)
[2018-09-10] MEDS: CALCIUM CARB/VIT D3 500/200 TABLET PO SCH ×2 (08:53→16:13)
[2018-09-10] MEDS: FOLIC ACID 1 MG TABLET PO SCH (08:53)
[2018-09-10] MEDS: POTASSIUM CHLORIDE 20 MEQ TABLET.ER. PO SCH ×2 (08:53→21:23)
[2018-09-10] MEDS ORDERED: MORPHINE SULFATE 4 MG/ML DISP.SYRIN. IV PRN (08:58)
[2018-09-10] MEDS: DEMECLOCYCLINE HCL 150 MG TABLET PO SCH ×2 (09:00→21:25)
[2018-09-10 10:05] LABS: ALBUMIN 2.5 g/dL (3.4-5.0); ALBUMIN/GLOBULIN RATIO 0.7 (1.0-1.7); CALCIUM 8.3 mg/dL (8.5-10.1); CREATININE 0.9 mg/dL (0.6-1.0); GFR 59.8; POTASSIUM 4.2 mmol/L (3.5-5.1); TOTAL BILIRUBIN 0.3 mg/dL (0.2-1.0); TOTAL PROTEIN 6.1 g/dL (6.4-8.2)
[2018-09-10 12:09] VITALS: BP 126/82
[2018-09-10 12:43] LABS: BASO % 1 % (0-3); EOS # 0.2 x10^3/uL (0.0-0.7); EOS % 4 % (0-3); HEMATOCRIT 32.5 % (36.0-47.0); HEMOGLOBIN 11.2 g/dL (12.0-15.5); LYMPH # 0.9 x10^3/uL (1.0-4.8); LYMPH % 18 % (24-48); MEAN CORPUSCULAR HEMOGLOBIN 30 pg (25-35); MEAN CORPUSCULAR HGB CONC 34 g/dL (31-37); MEAN CORPUSCULAR VOLUME 86 fL (79-100); MONO # 0.6 x10^3/uL (0.0-1.1); MONO % 11 % (0-9); NEUT # 3.6 x10^3uL (1.8-7.7); NEUT % 67 % (31-73); PLATELET COUNT 199 x10^3/uL (140-400); RED BLOOD COUNT 3.77 x10^6/uL (3.50-5.40); RED CELL DISTRIBUTION WIDTH 14.2 % (11.5-14.5); WHITE BLOOD COUNT 5.4 x10^3/uL (4.0-11.0)
[2018-09-10 15:54] VITALS: BP 135/67
[2018-09-10] MEDS ORDERED: WARFARIN 1 MG TABLET. PO SCH (16:00)
[2018-09-10] MEDS ORDERED: WARFARIN 3 MG TABLET. PO SCH ×3 (16:00)
--- NOTE | 2018-09-10 16:14 | EKG ---
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
--- NOTE | 2018-09-10 18:12 | HP ---
ADMIT DATE: 09/10/2018 HISTORY OF PRESENT ILLNESS: An 83-year-old female came in with sudden onset of severe left-sided chest discomfort while getting up from a chair. The patient has had a recent rib injury and seems to have possibly reinjured it except this time. The pain was so severe, she was even not able to take a deep breath. The patient's pain she noted to me was approximately 8/10. The patient was admitted for pain control as the patient had tried outpatient therapy without any successful intervention to her pain and therefore was admitted for pain management, further evaluation of this individual. The medications that she normally takes were monitored and reconciled in the usual fashion in the chart, they are all listed there. 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 The patient has had MRSA in the past and had been treated as such. FAMILY HISTORY: Natural cause , brother, father, and mother; hypertension in a brother and mother. ALLERGIES: The patient has no known allergies. SOCIAL HISTORY: No smoking, alcohol or drug use. The patient is a full code. REVIEW OF SYSTEMS: The patient denies any recent weight loss, weight gain, change in bowels, does have shortness of breath. Does have the problem with the situation with her breathing secondary to the pain in her chest wall. PHYSICAL EXAMINATION: GENERAL: This is a pleasant white female looking stated age, moderate amount of pain. VITAL SIGNS: Blood pressure 135/67, respiratory rate 18, pulse 60 and afebrile. HEENT: The patient's head was atraumatic, normocephalic. Eyes: PERRLA without jaundice. Mouth and throat were normal. NECK: Supple without JVD, carotid bruits or thyromegaly. LUNGS: Diminished throughout, poor movement of the air and unable to take a deep enough breath to really associate that. EXTREMITIES: No clubbing, cyanosis, nor edema. NEUROLOGIC: The patient was alert and oriented x 3. The patient had marked pain to her rib cage bilaterally, especially on the left was extremely painful. In any case, the patient will be admitted for further evaluation and treatment on that. The patient's x-rays demonstrated demineralization of her ribs, old left rib fracture. Otherwise, the lungs themselves appear to be basically normal without any pneumo or hemothorax noted. The patient was admitted for intractable pain, pain management and make further evaluation on the multiplicity of her other medical issues and pain control. OBED PETTIT MD DR: MAHESH/kenya JOB#: [id number] / [id number]
[2018-09-10 19:10] VITALS: BP 127/68
[2018-09-10] MEDS ORDERED: amLODIPine BESYLATE 5 MG TABLET PO SCH (21:00)
[2018-09-10] MEDS: DONEPEZIL HCL 5 MG TABLET. PO SCH (21:23)
[2018-09-10] MEDS: SIMVASTATIN 40 MG TABLET. PO SCH (21:23)
[2018-09-10] MEDS: FAMOTIDINE 20 MG TABLET PO SCH (21:23)
[2018-09-10] MEDS: PHENYTOIN SODIUM EXTENDED 100 MG CAPSULE PO SCH (21:23)
[2018-09-10] MEDS: NISOLDIPINE 17 MG PO SCH (21:25)
[2018-09-10 21:56] LABS: CLARITY,URINE CLEAR; COLOR,URINE YELLOW
[2018-09-10 21:57] LABS: BACTERIA,URINE FEW /HPF (0-FEW); BILIRUBIN,URINE NEG (NEG); GLUCOSE,URINE NEG (NEG); NITRITE,URINE NEG (NEG); RBC,URINE OCC /HPF (0-2); SQUAMOUS EPITHELIAL CELL,UR OCC /LPF; UROBILINOGEN,URINE 0.2 mg/dL (0.2 mg/dL)
[2018-09-11 06:00] VITALS: BP 145/82
[2018-09-11 06:21] LABS: BASO # 0.1 x10^3/uL (0.0-0.2); BASO % 1 % (0-3); EOS # 0.3 x10^3/uL (0.0-0.7); EOS % 5 % (0-3); HEMATOCRIT 34.7 % (36.0-47.0); HEMOGLOBIN 11.8 g/dL (12.0-15.5); LYMPH # 1.3 x10^3/uL (1.0-4.8); LYMPH % 25 % (24-48); MEAN CORPUSCULAR HEMOGLOBIN 30 pg (25-35); MEAN CORPUSCULAR HGB CONC 34 g/dL (31-37); MEAN CORPUSCULAR VOLUME 87 fL (79-100); MONO # 0.6 x10^3/uL (0.0-1.1); MONO % 11 % (0-9); NEUT # 2.9 x10^3uL (1.8-7.7); NEUT % 57 % (31-73); PLATELET COUNT 265 x10^3/uL (140-400); RED CELL DISTRIBUTION WIDTH 14.4 % (11.5-14.5)
[2018-09-11] MEDS: CALCIUM CARB/VIT D3 500/200 TABLET PO SCH ×2 (08:36→16:23)
[2018-09-11] MEDS: FLUoxetine HCL 10 MG CAPSULE PO SCH (08:36)
[2018-09-11] MEDS: MULTIVITAMIN I-VITE TABLET. PO SCH ×2 (08:36→16:23)
[2018-09-11] MEDS: DEMECLOCYCLINE HCL 150 MG TABLET PO SCH ×2 (08:36→21:18)
[2018-09-11] MEDS: POTASSIUM CHLORIDE 20 MEQ TABLET.ER. PO SCH ×2 (08:36→21:15)
[2018-09-11] MEDS: PANTOPRAZOLE 40 MG TABLET. PO SCH (08:36)
[2018-09-11] MEDS: hydrALAZINE 25 MG TABLET PO SCH ×3 (08:37→16:24)
[2018-09-11] MEDS: CARVEDILOL 12.5 MG TABLET PO SCH ×3 (08:37→16:23)
[2018-09-11] MEDS: FOLIC ACID 1 MG TABLET PO SCH (08:37)
[2018-09-11] MEDS: LOSARTAN 50 MG TABLET. PO SCH (08:38)
[2018-09-11] MEDS: traMADol 50 MG TABLET PO PRN (09:05)
[2018-09-11] MEDS: LIDOCAINE (700MG/PATCH) PATCH. TD SCH (09:27)
[2018-09-11] MEDS: NYSTATIN TOPICAL POWDER 15GM BOTTLE. TP SCH ×2 (10:00→21:15)
[2018-09-11 10:43] VITALS: BP 123/71
[2018-09-11] MEDS: HYDROcodone/APAP 5/325MG 1 TAB TABLET PO PRN ×2 (13:30→21:17)
[2018-09-11 15:04] VITALS: BP 141/76
[2018-09-11] MEDS ORDERED: WARFARIN 1 MG TABLET. PO SCH (16:00)
[2018-09-11] MEDS ORDERED: WARFARIN 3 MG TABLET. PO SCH (16:00)
[2018-09-11] MEDS: WARFARIN 4 MG TABLET. PO SCH (16:23)
[2018-09-11 20:00] VITALS: BP 159/70
[2018-09-11] MEDS: PATCH REMOVAL. MC SCH (21:00)
[2018-09-11] MEDS: DONEPEZIL HCL 5 MG TABLET. PO SCH (21:15)
[2018-09-11] MEDS: FAMOTIDINE 20 MG TABLET PO SCH (21:15)
[2018-09-11] MEDS: SIMVASTATIN 40 MG TABLET. PO SCH (21:16)
[2018-09-11] MEDS: PHENYTOIN SODIUM EXTENDED 100 MG CAPSULE PO SCH (21:16)
[2018-09-11] MEDS: NISOLDIPINE 17 MG PO SCH (21:17)
--- NOTE | 2018-09-11 22:24 | PN ---
DATE: SUBJECTIVE: The patient in with intractable pain secondary to the rib fractures. She is resting fairly comfortably. OBJECTIVE: VITAL SIGNS: Blood pressure 145/80, respiratory rate 18, pulse 70, afebrile. GENERAL: The patient is alert and oriented, feeling somewhat better. LUNGS: Diminished, pain 8-9/10. CARDIOVASCULAR: Regular sinus rhythm. ABDOMEN: The patient's abdomen is soft, nontender. EXTREMITIES: No clubbing, cyanosis or edema. NEUROLOGIC: Baseline stable mild dementia. IMPRESSION AND PLAN: Intractable pain, rib fracture, osteoporosis. Continue with pain medication. Use Lidoderm patch, physical therapy and occupational therapy and make further evaluation with her as indicated. OBED PETTIT MD DR: MAHESH/kenya JOB#: [id number] / [id number]
[2018-09-11 23:19] VITALS: BP 137/64
[2018-09-12 06:06] VITALS: BP 165/71
[2018-09-12 07:34] LABS: ALBUMIN 2.7 g/dL (3.4-5.0); ALBUMIN/GLOBULIN RATIO 0.7 (1.0-1.7); CALCIUM 8.4 mg/dL (8.5-10.1); CREATININE 0.9 mg/dL (0.6-1.0); GFR 59.8; POTASSIUM 4.2 mmol/L (3.5-5.1); TOTAL BILIRUBIN 0.3 mg/dL (0.2-1.0); TOTAL PROTEIN 6.5 g/dL (6.4-8.2)
[2018-09-12] MEDS: MULTIVITAMIN I-VITE TABLET. PO SCH ×2 (07:39→16:53)
[2018-09-12] MEDS: NYSTATIN TOPICAL POWDER 15GM BOTTLE. TP SCH ×2 (07:39→20:00)
[2018-09-12] MEDS: POTASSIUM CHLORIDE 20 MEQ TABLET.ER. PO SCH ×2 (07:40→20:01)
[2018-09-12] MEDS: traMADol 50 MG TABLET PO PRN ×2 (07:40→16:50)
[2018-09-12] MEDS: PANTOPRAZOLE 40 MG TABLET. PO SCH (07:40)
[2018-09-12] MEDS: FLUoxetine HCL 10 MG CAPSULE PO SCH (07:40)
[2018-09-12] MEDS: FOLIC ACID 1 MG TABLET PO SCH (07:40)
[2018-09-12] MEDS: LOSARTAN 50 MG TABLET. PO SCH (07:40)
[2018-09-12] MEDS: DEMECLOCYCLINE HCL 150 MG TABLET PO SCH ×2 (07:40→20:01)
[2018-09-12] MEDS: LIDOCAINE (700MG/PATCH) PATCH. TD SCH (07:41)
[2018-09-12] MEDS: CALCIUM CARB/VIT D3 500/200 TABLET PO SCH ×2 (07:41→16:51)
[2018-09-12] MEDS: hydrALAZINE 25 MG TABLET PO SCH ×3 (07:41→16:50)
[2018-09-12] MEDS: CARVEDILOL 12.5 MG TABLET PO SCH ×3 (07:41→16:51)
[2018-09-12 07:57] LABS: BASO # 0.1 x10^3/uL (0.0-0.2); BASO % 1 % (0-3); EOS # 0.2 x10^3/uL (0.0-0.7); EOS % 5 % (0-3); HEMATOCRIT 35.9 % (36.0-47.0); HEMOGLOBIN 12.2 g/dL (12.0-15.5); LYMPH # 1.2 x10^3/uL (1.0-4.8); LYMPH % 24 % (24-48); MEAN CORPUSCULAR HEMOGLOBIN 30 pg (25-35); MEAN CORPUSCULAR HGB CONC 34 g/dL (31-37); MEAN CORPUSCULAR VOLUME 87 fL (79-100); MONO # 0.6 x10^3/uL (0.0-1.1); MONO % 12 % (0-9); NEUT # 2.8 x10^3uL (1.8-7.7); NEUT % 58 % (31-73); PLATELET COUNT 275 x10^3/uL (140-400); RED BLOOD COUNT 4.14 x10^6/uL (3.50-5.40); RED CELL DISTRIBUTION WIDTH 13.8 % (11.5-14.5); WHITE BLOOD COUNT 4.8 x10^3/uL (4.0-11.0)
[2018-09-12 08:36] LABS: % BASOS 2 % (0-3); % EOS 4 % (0-5); % LYMPHS 28 % (24-48); % MONOS 9 % (0-10); % SEGS 57 % (35-66); PLT ESTIMATE ADEQUATE (ADEQUATE)
[2018-09-12] MEDS: fentaNYL 12MCG/HR 1 PATCH PATCH TD SCH ×2 (12:00→13:29)
[2018-09-12 12:29] VITALS: BP 137/70
[2018-09-12 15:12] VITALS: BP 139/65
[2018-09-12] MEDS: WARFARIN 4 MG TABLET. PO SCH (16:51)
[2018-09-12] MEDS: SIMVASTATIN 40 MG TABLET. PO SCH (20:00)
[2018-09-12] MEDS: PATCH REMOVAL. MC SCH (20:00)
[2018-09-12] MEDS: NISOLDIPINE 17 MG PO SCH (20:00)
[2018-09-12] MEDS: PHENYTOIN SODIUM EXTENDED 100 MG CAPSULE PO SCH (20:00)
[2018-09-12] MEDS: DONEPEZIL HCL 5 MG TABLET. PO SCH (20:01)
[2018-09-12] MEDS: HYDROcodone/APAP 5/325MG 1 TAB TABLET PO PRN (20:02)
[2018-09-12] MEDS: FAMOTIDINE 20 MG TABLET PO SCH (20:02)
[2018-09-12 20:10] VITALS: BP 147/74
--- NOTE | 2018-09-13 00:54 | PN ---
DATE: 09/12/2018 SUBJECTIVE: The patient is resting fairly comfortably, making fairly good progress, still in a lot of pain with any movement. She complains of pain about 7-8/10. OBJECTIVE: VITAL SIGNS: Blood pressure 160/70, respiratory rate 20, pulse 62, afebrile. LUNGS: Diminished, but clear. CARDIOVASCULAR: Regular sinus rhythm. ABDOMEN: Soft, nontender. PLAN: The patient will be tried on a fentanyl patch. Continue with PT, OT. INR up to 2. Continue on present drug regimen and pain management. IMPRESSION: Intractable pain, osteoporosis. OBED PETTIT MD DR: MAHESH/kenya JOB#: [id number] / [id number]
[2018-09-13 06:25] VITALS: BP 139/60
[2018-09-13] MEDS: CALCIUM CARB/VIT D3 500/200 TABLET PO SCH ×2 (09:14→17:13)
[2018-09-13] MEDS: MULTIVITAMIN I-VITE TABLET. PO SCH ×2 (09:14→17:13)
[2018-09-13] MEDS: LOSARTAN 50 MG TABLET. PO SCH (09:14)
[2018-09-13] MEDS: FLUoxetine HCL 10 MG CAPSULE PO SCH (09:14)
[2018-09-13] MEDS: PANTOPRAZOLE 40 MG TABLET. PO SCH (09:14)
[2018-09-13] MEDS: CARVEDILOL 12.5 MG TABLET PO SCH ×3 (09:14→17:13)
[2018-09-13] MEDS: POTASSIUM CHLORIDE 20 MEQ TABLET.ER. PO SCH ×2 (09:15→20:11)
[2018-09-13] MEDS: traMADol 50 MG TABLET PO PRN ×2 (09:15→18:28)
[2018-09-13] MEDS: hydrALAZINE 25 MG TABLET PO SCH ×3 (09:15→17:13)
[2018-09-13] MEDS: NYSTATIN TOPICAL POWDER 15GM BOTTLE. TP SCH ×2 (09:16→20:12)
[2018-09-13] MEDS: FOLIC ACID 1 MG TABLET PO SCH (09:16)
[2018-09-13] MEDS: LIDOCAINE (700MG/PATCH) PATCH. TD SCH (09:16)
[2018-09-13] MEDS: DEMECLOCYCLINE HCL 150 MG TABLET PO SCH ×2 (09:16→20:13)
[2018-09-13 11:28] VITALS: BP 124/65
[2018-09-13] MEDS: WARFARIN 4 MG TABLET. PO SCH (17:13)
[2018-09-13 17:30] VITALS: BP 170/78
[2018-09-13] MEDS: PHENYTOIN SODIUM EXTENDED 100 MG CAPSULE PO SCH (20:11)
[2018-09-13] MEDS: DONEPEZIL HCL 5 MG TABLET. PO SCH (20:11)
[2018-09-13] MEDS: SIMVASTATIN 40 MG TABLET. PO SCH (20:11)
[2018-09-13] MEDS: FAMOTIDINE 20 MG TABLET PO SCH (20:11)
[2018-09-13] MEDS: NISOLDIPINE 17 MG PO SCH (20:12)
[2018-09-13] MEDS: PATCH REMOVAL. MC SCH (20:15)
[2018-09-14 05:25] VITALS: BP 166/75
[2018-09-14] MEDS: LIDOCAINE (700MG/PATCH) PATCH. TD SCH (08:35)
[2018-09-14] MEDS: PANTOPRAZOLE 40 MG TABLET. PO SCH (08:35)
[2018-09-14] MEDS: FLUoxetine HCL 10 MG CAPSULE PO SCH (08:35)
[2018-09-14] MEDS: hydrALAZINE 25 MG TABLET PO SCH (08:36)
[2018-09-14] MEDS: POTASSIUM CHLORIDE 20 MEQ TABLET.ER. PO SCH (08:36)
[2018-09-14 08:37] VITALS: BP 166/75
[2018-09-14] MEDS: FOLIC ACID 1 MG TABLET PO SCH (08:37)
[2018-09-14] MEDS: CALCIUM CARB/VIT D3 500/200 TABLET PO SCH (08:37)
[2018-09-14] MEDS: MULTIVITAMIN I-VITE TABLET. PO SCH (08:37)
[2018-09-14] MEDS: LOSARTAN 50 MG TABLET. PO SCH (08:37)
[2018-09-14] MEDS: CARVEDILOL 12.5 MG TABLET PO SCH (08:37)
[2018-09-14] MEDS: NYSTATIN TOPICAL POWDER 15GM BOTTLE. TP SCH (08:38)
[2018-09-14] MEDS: DEMECLOCYCLINE HCL 150 MG TABLET PO SCH (08:38)
--- NOTE | 2018-09-14 17:56 | DS ---
DATE OF DISCHARGE: 09/14/2018 The patient is being discharged to the swing bed. OBED PETTIT MD DR: MAHESH/kenya JOB#: [id number] / [id number]
--- NOTE | 2018-09-14 18:01 | DS ---
DATE OF DISCHARGE: 09/14/2018 HOSPITAL COURSE: The patient is an 83-year-old female of female being discharged to the swing bed. The patient came in with severe rib pain to the point where she could not move. She had marked intractable pain and as a result of this, the patient was admitted to the hospital for further evaluation and pain control as well as physical and occupational therapy. The patient has made some progress, but still in a great deal of discomfort and still requires additional skilled facility therapy. The patient made good progress. We used a combination of hydrocodone as well as Lidoderm patches and fentanyl patches to help her with the pain. But if she is still having significant pain, she will be discharged to swing bed and make further evaluation once on the unit with PT, OT. IMPRESSION: Intractable pain, rib fractures, osteoporosis, essential hypertension, anemia of chronic disease, severe protein-malnutrition and chronic warfarin therapy. She will be on a heart healthy diet and activity as tolerated by the PT, OT department. OBED PETTIT MD DR: MAHESH/kenya JOB#: [id number] / [id number]
== END 2018-09-14 10:34 | disposition swing bed (61) | DRG 553 ==
LOC: ER 00:51 → 1 SOUTH 02:15
PROVIDERS: ADMIT Family Medicine; ATTEND Family Medicine
DX: M81.0 Age-related osteoporosis without current pathological fracture (principal); E43 Unspecified severe protein-calorie malnutrition; Z68.44 Body mass index [BMI] 60.0-69.9, adult; D63.8 Anemia in other chronic diseases classified elsewhere; R07.89 Other chest pain; E78.00 Pure hypercholesterolemia, unspecified; F03.90 Unspecified dementia, unspecified severity, without behavioral disturbance, psychotic disturbance, mood disturbance, and anxiety; H54.3 Unqualified visual loss, both eyes; I10 Essential (primary) hypertension; K21.9 Gastro-esophageal reflux disease without esophagitis; Z79.01 Long term (current) use of anticoagulants; Z82.49 Family history of ischemic heart disease and other diseases of the circulatory system; Z86.14 Personal history of Methicillin resistant Staphylococcus aureus infection; Z86.73 Personal history of transient ischemic attack (TIA), and cerebral infarction without residual deficits; Z90.710 Acquired absence of both cervix and uterus
CPT/HCPCS: 36415; 71101; 80053; 81001; 85007; 85025; 85379; 85610; 87086; 87641; 93005; J2270; 97110; 97530; 97535; 99285-25

== ENCOUNTER 2018-09-14 08:56 | Inpatient (IN) | payer MEDICARE, BC ==
[~2018-09-14] VITALS: Ht 157.5 cm; Wt 52.2 kg
[~2018-09-14 08:56] MED LIST changes: +AFLI2VIA IO; +CYCL5TAB PO; +DEMECLOCYCLINE PO; +DONE5TAB7 PO; +FLUO10TA PO; +HYDR-2868 PO; +PANT20TA58 PO; +POTA20TA4 PO; +VIT1CAPS12 PO; +WARF3TAB50 PO
[2018-09-14] MEDS ORDERED: traMADol 50 MG TABLET PO PRN (10:45)
[2018-09-14] MEDS ORDERED: AFLIBERCEPT IO SCH (10:45)
[2018-09-14] MEDS ORDERED: HYDROcodone/APAP 5/325MG 1 TAB TABLET PO PRN (10:45)
[2018-09-14 10:46] VITALS: BP 121/70
[2018-09-14] MEDS: hydrALAZINE 25 MG TABLET PO SCH ×2 (12:34→16:50)
[2018-09-14] MEDS: CARVEDILOL 12.5 MG TABLET PO SCH ×2 (12:34→21:33)
[2018-09-14 14:54] VITALS: BP 126/65
[2018-09-14] MEDS ORDERED: WARFARIN 4 MG TABLET. PO SCH (16:00)
[2018-09-14] MEDS: PANTOPRAZOLE 40 MG TABLET. PO SCH (16:30)
[2018-09-14] MEDS: MULTIVITAMIN I-VITE TABLET. PO SCH (16:50)
[2018-09-14] MEDS: CALCIUM CARB/VIT D3 500/200 TABLET PO SCH (16:50)
[2018-09-14 20:15] VITALS: BP 124/75
[2018-09-14] MEDS: PATCH REMOVAL. MC SCH (21:00)
[2018-09-14] MEDS: NYSTATIN TOPICAL POWDER 15GM BOTTLE. TP SCH (21:28)
[2018-09-14] MEDS: NISOLDIPINE 17 MG PO SCH (21:28)
[2018-09-14] MEDS: FAMOTIDINE 20 MG TABLET PO SCH (21:29)
[2018-09-14] MEDS: SIMVASTATIN 40 MG TABLET. PO SCH (21:29)
[2018-09-14] MEDS: POTASSIUM CHLORIDE 20 MEQ TABLET.ER. PO SCH (21:30)
[2018-09-14] MEDS: PHENYTOIN SODIUM EXTENDED 100 MG CAPSULE PO SCH (21:30)
[2018-09-14] MEDS: DONEPEZIL HCL 5 MG TABLET. PO SCH (21:31)
[2018-09-14] MEDS: DEMECLOCYCLINE HCL 150 MG TABLET PO SCH (21:32)
[2018-09-15 05:00] VITALS: BP 130/73
[2018-09-15] MEDS: DEMECLOCYCLINE HCL 150 MG TABLET PO SCH ×2 (08:18→21:16)
[2018-09-15] MEDS: MULTIVITAMIN I-VITE TABLET. PO SCH ×2 (08:18→17:27)
[2018-09-15] MEDS: POTASSIUM CHLORIDE 20 MEQ TABLET.ER. PO SCH ×2 (08:19→21:11)
[2018-09-15] MEDS: CALCIUM CARB/VIT D3 500/200 TABLET PO SCH ×2 (08:19→17:27)
[2018-09-15] MEDS: hydrALAZINE 25 MG TABLET PO SCH ×3 (08:19→17:27)
[2018-09-15] MEDS: PANTOPRAZOLE 40 MG TABLET. PO SCH ×2 (08:19→17:28)
[2018-09-15] MEDS: CARVEDILOL 12.5 MG TABLET PO SCH ×3 (08:20→21:15)
[2018-09-15] MEDS: LOSARTAN 50 MG TABLET. PO SCH (08:23)
[2018-09-15] MEDS: FLUoxetine HCL 10 MG CAPSULE PO SCH (08:23)
[2018-09-15] MEDS: fentaNYL 12MCG/HR 1 PATCH PATCH TD SCH (08:24)
[2018-09-15] MEDS: LIDOCAINE (700MG/PATCH) PATCH. TD SCH (08:24)
[2018-09-15] MEDS: FOLIC ACID 1 MG TABLET PO SCH (08:24)
[2018-09-15] MEDS: NYSTATIN TOPICAL POWDER 15GM BOTTLE. TP SCH ×2 (08:27→21:00)
[2018-09-15 15:39] VITALS: BP 129/71
[2018-09-15] MEDS: PATCH REMOVAL. MC SCH (21:00)
[2018-09-15] MEDS: NISOLDIPINE 17 MG PO SCH (21:10)
[2018-09-15] MEDS: DONEPEZIL HCL 5 MG TABLET. PO SCH (21:11)
[2018-09-15] MEDS: PHENYTOIN SODIUM EXTENDED 100 MG CAPSULE PO SCH (21:13)
[2018-09-15] MEDS: FAMOTIDINE 20 MG TABLET PO SCH (21:13)
[2018-09-15] MEDS: SIMVASTATIN 40 MG TABLET. PO SCH (21:14)
[2018-09-16 05:32] VITALS: BP 134/76
[2018-09-16] MEDS: MULTIVITAMIN I-VITE TABLET. PO SCH ×2 (08:11→17:04)
[2018-09-16] MEDS: hydrALAZINE 25 MG TABLET PO SCH ×3 (08:11→17:04)
[2018-09-16] MEDS: FLUoxetine HCL 10 MG CAPSULE PO SCH (08:11)
[2018-09-16] MEDS: CALCIUM CARB/VIT D3 500/200 TABLET PO SCH ×2 (08:11→17:05)
[2018-09-16] MEDS: FOLIC ACID 1 MG TABLET PO SCH (08:11)
[2018-09-16] MEDS: POTASSIUM CHLORIDE 20 MEQ TABLET.ER. PO SCH ×2 (08:11→21:34)
[2018-09-16] MEDS: CARVEDILOL 12.5 MG TABLET PO SCH ×3 (08:12→21:35)
[2018-09-16] MEDS: PANTOPRAZOLE 40 MG TABLET. PO SCH ×2 (08:12→17:04)
[2018-09-16] MEDS: LOSARTAN 50 MG TABLET. PO SCH (08:12)
[2018-09-16] MEDS: DEMECLOCYCLINE HCL 150 MG TABLET PO SCH ×2 (08:13→21:32)
[2018-09-16] MEDS: NYSTATIN TOPICAL POWDER 15GM BOTTLE. TP SCH ×2 (08:15→21:35)
[2018-09-16] MEDS: LIDOCAINE (700MG/PATCH) PATCH. TD SCH (08:15)
[2018-09-16 15:37] VITALS: BP 159/75
[2018-09-16] MEDS ORDERED: WARFARIN 3 MG TABLET. PO ONE (16:00)
[2018-09-16] MEDS: PATCH REMOVAL. MC SCH (21:00)
[2018-09-16] MEDS: NISOLDIPINE 17 MG PO SCH (21:28)
[2018-09-16] MEDS: DONEPEZIL HCL 5 MG TABLET. PO SCH (21:29)
[2018-09-16] MEDS: PHENYTOIN SODIUM EXTENDED 100 MG CAPSULE PO SCH (21:34)
[2018-09-16] MEDS: SIMVASTATIN 40 MG TABLET. PO SCH (21:35)
[2018-09-16] MEDS: FAMOTIDINE 20 MG TABLET PO SCH (21:35)
[2018-09-17 05:40] VITALS: BP 147/70
[2018-09-17] MEDS: LIDOCAINE (700MG/PATCH) PATCH. TD SCH (08:42)
[2018-09-17] MEDS: DEMECLOCYCLINE HCL 150 MG TABLET PO SCH ×2 (08:42→21:12)
[2018-09-17] MEDS: FOLIC ACID 1 MG TABLET PO SCH (08:42)
[2018-09-17] MEDS: hydrALAZINE 25 MG TABLET PO SCH ×3 (08:43→16:18)
[2018-09-17] MEDS: FLUoxetine HCL 10 MG CAPSULE PO SCH (08:43)
[2018-09-17] MEDS: CALCIUM CARB/VIT D3 500/200 TABLET PO SCH ×2 (08:43→16:18)
[2018-09-17] MEDS: MULTIVITAMIN I-VITE TABLET. PO SCH ×2 (08:43→16:18)
[2018-09-17] MEDS: POTASSIUM CHLORIDE 20 MEQ TABLET.ER. PO SCH ×2 (08:43→21:13)
[2018-09-17] MEDS: PANTOPRAZOLE 40 MG TABLET. PO SCH ×2 (08:43→16:18)
[2018-09-17] MEDS: CARVEDILOL 12.5 MG TABLET PO SCH ×3 (08:44→21:13)
[2018-09-17] MEDS: NYSTATIN TOPICAL POWDER 15GM BOTTLE. TP SCH ×2 (08:44→21:11)
[2018-09-17] MEDS: LOSARTAN 50 MG TABLET. PO SCH (08:44)
[2018-09-17 09:39] VITALS: BP 124/69
[2018-09-17 09:46] LABS: CALCIUM 8.7 mg/dL (8.5-10.1); CREATININE 0.7 mg/dL (0.6-1.0); GFR 79.9; POTASSIUM 4.3 mmol/L (3.5-5.1)
[2018-09-17 09:47] LABS: BASO % 1 % (0-3); EOS # 0.3 x10^3/uL (0.0-0.7); EOS % 9 % (0-3); HEMATOCRIT 33.3 % (36.0-47.0); HEMOGLOBIN 11.3 g/dL (12.0-15.5); LYMPH # 1.2 x10^3/uL (1.0-4.8); LYMPH % 31 % (24-48); MEAN CORPUSCULAR HEMOGLOBIN 29 pg (25-35); MEAN CORPUSCULAR HGB CONC 34 g/dL (31-37); MEAN CORPUSCULAR VOLUME 87 fL (79-100); MONO # 0.6 x10^3/uL (0.0-1.1); MONO % 15 % (0-9); NEUT # 1.7 x10^3uL (1.8-7.7); NEUT % 44 % (31-73); PLATELET COUNT 193 x10^3/uL (140-400); RED BLOOD COUNT 3.85 x10^6/uL (3.50-5.40); RED CELL DISTRIBUTION WIDTH 14.2 % (11.5-14.5); WHITE BLOOD COUNT 3.9 x10^3/uL (4.0-11.0)
[2018-09-17 12:42] VITALS: BP 105/69
--- NOTE | 2018-09-17 14:44 | EKG ---
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
[2018-09-17 15:19] VITALS: BP 179/82
[2018-09-17] MEDS ORDERED: WARFARIN 3 MG TABLET. PO ONE (16:00)
[2018-09-17 19:36] VITALS: BP 130/66
[2018-09-17] MEDS: PATCH REMOVAL. MC SCH (21:00)
[2018-09-17] MEDS: NISOLDIPINE 17 MG PO SCH (21:00)
[2018-09-17] MEDS: PHENYTOIN SODIUM EXTENDED 100 MG CAPSULE PO SCH (21:12)
[2018-09-17] MEDS: SIMVASTATIN 40 MG TABLET. PO SCH (21:12)
[2018-09-17] MEDS: DONEPEZIL HCL 5 MG TABLET. PO SCH (21:12)
[2018-09-17] MEDS: FAMOTIDINE 20 MG TABLET PO SCH (21:12)
[2018-09-18 05:27] VITALS: BP 162/85
[2018-09-18] MEDS: MULTIVITAMIN I-VITE TABLET. PO SCH ×2 (08:00→17:36)
[2018-09-18] MEDS: LIDOCAINE (700MG/PATCH) PATCH. TD SCH (08:42)
[2018-09-18] MEDS: POTASSIUM CHLORIDE 20 MEQ TABLET.ER. PO SCH ×2 (08:43→21:22)
[2018-09-18] MEDS: FLUoxetine HCL 10 MG CAPSULE PO SCH (08:43)
[2018-09-18] MEDS: CALCIUM CARB/VIT D3 500/200 TABLET PO SCH ×2 (08:43→17:36)
[2018-09-18] MEDS: CARVEDILOL 12.5 MG TABLET PO SCH ×3 (08:43→21:22)
[2018-09-18] MEDS: fentaNYL 12MCG/HR 1 PATCH PATCH TD SCH (08:43)
[2018-09-18] MEDS: hydrALAZINE 25 MG TABLET PO SCH ×3 (08:44→17:36)
[2018-09-18] MEDS: FOLIC ACID 1 MG TABLET PO SCH (08:44)
[2018-09-18] MEDS: PANTOPRAZOLE 40 MG TABLET. PO SCH ×2 (08:44→17:36)
[2018-09-18] MEDS: LOSARTAN 50 MG TABLET. PO SCH (08:44)
[2018-09-18] MEDS: DEMECLOCYCLINE HCL 150 MG TABLET PO SCH ×2 (09:00→21:23)
[2018-09-18] MEDS: NYSTATIN TOPICAL POWDER 15GM BOTTLE. TP SCH ×2 (09:00→21:23)
[2018-09-18] MEDS: WARFARIN 3 MG TABLET. PO SCH (17:36)
[2018-09-18 18:32] VITALS: BP 147/75
[2018-09-18] MEDS: NISOLDIPINE 17 MG PO SCH (21:00)
[2018-09-18] MEDS: PHENYTOIN SODIUM EXTENDED 100 MG CAPSULE PO SCH (21:20)
[2018-09-18] MEDS: DONEPEZIL HCL 5 MG TABLET. PO SCH (21:21)
[2018-09-18] MEDS: SIMVASTATIN 40 MG TABLET. PO SCH (21:22)
[2018-09-18] MEDS: FAMOTIDINE 20 MG TABLET PO SCH (21:22)
[2018-09-18] MEDS: PATCH REMOVAL. MC SCH (21:25)
[2018-09-19 05:50] VITALS: BP 159/71
[2018-09-19] MEDS: CALCIUM CARB/VIT D3 500/200 TABLET PO SCH ×2 (08:00→18:17)
[2018-09-19] MEDS: NYSTATIN TOPICAL POWDER 15GM BOTTLE. TP SCH ×2 (09:00→20:52)
[2018-09-19] MEDS: CARVEDILOL 12.5 MG TABLET PO SCH ×3 (09:30→20:50)
[2018-09-19] MEDS: FLUoxetine HCL 10 MG CAPSULE PO SCH (09:30)
[2018-09-19] MEDS: hydrALAZINE 25 MG TABLET PO SCH ×3 (09:30→18:18)
[2018-09-19] MEDS: LOSARTAN 50 MG TABLET. PO SCH (09:31)
[2018-09-19] MEDS: MULTIVITAMIN I-VITE TABLET. PO SCH ×2 (09:31→18:17)
[2018-09-19] MEDS: PANTOPRAZOLE 40 MG TABLET. PO SCH ×2 (09:31→18:17)
[2018-09-19] MEDS: POTASSIUM CHLORIDE 20 MEQ TABLET.ER. PO SCH ×2 (09:31→20:49)
[2018-09-19] MEDS: FOLIC ACID 1 MG TABLET PO SCH (09:32)
[2018-09-19] MEDS: DEMECLOCYCLINE HCL 150 MG TABLET PO SCH ×2 (09:32→20:51)
[2018-09-19] MEDS: LIDOCAINE (700MG/PATCH) PATCH. TD SCH (09:34)
[2018-09-19] MEDS: WARFARIN 3 MG TABLET. PO SCH (18:20)
[2018-09-19 18:26] VITALS: BP 166/77
[2018-09-19] MEDS: FAMOTIDINE 20 MG TABLET PO SCH (20:49)
[2018-09-19] MEDS: DONEPEZIL HCL 5 MG TABLET. PO SCH (20:49)
[2018-09-19] MEDS: SIMVASTATIN 40 MG TABLET. PO SCH (20:49)
[2018-09-19] MEDS: PHENYTOIN SODIUM EXTENDED 100 MG CAPSULE PO SCH (20:50)
[2018-09-19] MEDS: PATCH REMOVAL. MC SCH (20:51)
[2018-09-19] MEDS: NISOLDIPINE 17 MG PO SCH (20:51)
[2018-09-20 06:20] VITALS: BP 160/69
[2018-09-20] MEDS: MULTIVITAMIN I-VITE TABLET. PO SCH ×2 (08:09→18:28)
[2018-09-20] MEDS: CARVEDILOL 12.5 MG TABLET PO SCH ×3 (08:09→21:07)
[2018-09-20] MEDS: FLUoxetine HCL 10 MG CAPSULE PO SCH (08:10)
[2018-09-20] MEDS: POTASSIUM CHLORIDE 20 MEQ TABLET.ER. PO SCH ×2 (08:10→21:07)
[2018-09-20] MEDS: hydrALAZINE 25 MG TABLET PO SCH ×3 (08:10→18:28)
[2018-09-20] MEDS: PANTOPRAZOLE 40 MG TABLET. PO SCH ×2 (08:10→18:28)
[2018-09-20] MEDS: CALCIUM CARB/VIT D3 500/200 TABLET PO SCH ×2 (08:10→17:00)
[2018-09-20] MEDS: LOSARTAN 50 MG TABLET. PO SCH (08:11)
[2018-09-20] MEDS: LIDOCAINE (700MG/PATCH) PATCH. TD SCH (08:11)
[2018-09-20] MEDS: FOLIC ACID 1 MG TABLET PO SCH (08:11)
[2018-09-20] MEDS: DEMECLOCYCLINE HCL 150 MG TABLET PO SCH ×2 (08:13→21:09)
[2018-09-20] MEDS: NYSTATIN TOPICAL POWDER 15GM BOTTLE. TP SCH ×2 (08:35→21:11)
[2018-09-20 18:25] VITALS: BP 159/67
[2018-09-20] MEDS: WARFARIN 3 MG TABLET. PO SCH (18:27)
[2018-09-20] MEDS: PATCH REMOVAL. MC SCH (21:00)
[2018-09-20] MEDS: NISOLDIPINE 17 MG PO SCH (21:00)
[2018-09-20] MEDS: FAMOTIDINE 20 MG TABLET PO SCH (21:07)
[2018-09-20] MEDS: DONEPEZIL HCL 5 MG TABLET. PO SCH (21:07)
[2018-09-20] MEDS: SIMVASTATIN 40 MG TABLET. PO SCH (21:07)
[2018-09-20] MEDS: PHENYTOIN SODIUM EXTENDED 100 MG CAPSULE PO SCH (21:08)
[2018-09-21 07:34] VITALS: BP 169/68
[2018-09-21] MEDS: CARVEDILOL 12.5 MG TABLET PO SCH ×3 (07:57→20:03)
[2018-09-21] MEDS: FOLIC ACID 1 MG TABLET PO SCH (07:57)
[2018-09-21] MEDS: FLUoxetine HCL 10 MG CAPSULE PO SCH (07:57)
[2018-09-21] MEDS: CALCIUM CARB/VIT D3 500/200 TABLET PO SCH ×2 (07:57→17:08)
[2018-09-21] MEDS: MULTIVITAMIN I-VITE TABLET. PO SCH ×2 (07:58→17:08)
[2018-09-21] MEDS: LOSARTAN 50 MG TABLET. PO SCH (07:58)
[2018-09-21] MEDS: hydrALAZINE 25 MG TABLET PO SCH ×3 (07:58→17:08)
[2018-09-21] MEDS: fentaNYL 12MCG/HR 1 PATCH PATCH TD SCH (07:59)
[2018-09-21] MEDS: DEMECLOCYCLINE HCL 150 MG TABLET PO SCH ×2 (07:59→20:03)
[2018-09-21] MEDS: LIDOCAINE (700MG/PATCH) PATCH. TD SCH (08:00)
[2018-09-21] MEDS: POTASSIUM CHLORIDE 20 MEQ TABLET.ER. PO SCH ×2 (08:08→20:02)
[2018-09-21] MEDS: PANTOPRAZOLE 40 MG TABLET. PO SCH ×2 (08:08→17:08)
[2018-09-21] MEDS: NYSTATIN TOPICAL POWDER 15GM BOTTLE. TP SCH ×2 (08:08→20:05)
[2018-09-21] MEDS ORDERED: ONDANSETRON ODT 4 MG TAB.RAPDIS PO PRN (08:15)
[2018-09-21] MEDS: WARFARIN 3 MG TABLET. PO SCH (17:07)
[2018-09-21 18:03] VITALS: BP 160/73
[2018-09-21] MEDS: PATCH REMOVAL. MC SCH (20:01)
[2018-09-21] MEDS: PHENYTOIN SODIUM EXTENDED 100 MG CAPSULE PO SCH (20:02)
[2018-09-21] MEDS: SIMVASTATIN 40 MG TABLET. PO SCH (20:03)
[2018-09-21] MEDS: DONEPEZIL HCL 5 MG TABLET. PO SCH (20:03)
[2018-09-21] MEDS: FAMOTIDINE 20 MG TABLET PO SCH (20:03)
[2018-09-21] MEDS: NISOLDIPINE 17 MG PO SCH (20:04)
[2018-09-22 05:57] VITALS: BP 148/74
[2018-09-22] MEDS: MULTIVITAMIN I-VITE TABLET. PO SCH ×2 (07:59→17:13)
[2018-09-22] MEDS: hydrALAZINE 25 MG TABLET PO SCH ×3 (07:59→17:13)
[2018-09-22] MEDS: PANTOPRAZOLE 40 MG TABLET. PO SCH ×2 (07:59→16:04)
[2018-09-22] MEDS: FOLIC ACID 1 MG TABLET PO SCH (07:59)
[2018-09-22] MEDS: CARVEDILOL 12.5 MG TABLET PO SCH ×3 (08:00→20:43)
[2018-09-22] MEDS: LOSARTAN 50 MG TABLET. PO SCH (08:00)
[2018-09-22] MEDS: POTASSIUM CHLORIDE 20 MEQ TABLET.ER. PO SCH ×2 (08:00→20:42)
[2018-09-22] MEDS: FLUoxetine HCL 10 MG CAPSULE PO SCH (08:00)
[2018-09-22] MEDS: LIDOCAINE (700MG/PATCH) PATCH. TD SCH (08:02)
[2018-09-22] MEDS: DEMECLOCYCLINE HCL 150 MG TABLET PO SCH ×2 (08:02→20:42)
[2018-09-22] MEDS: CALCIUM CARB/VIT D3 500/200 TABLET PO SCH ×2 (08:08→17:13)
[2018-09-22] MEDS: NYSTATIN TOPICAL POWDER 15GM BOTTLE. TP SCH ×2 (10:19→20:44)
[2018-09-22] MEDS: WARFARIN 3 MG TABLET. PO SCH ×2 (11:17→16:04)
[2018-09-22 18:33] VITALS: BP 131/63
[2018-09-22] MEDS: SIMVASTATIN 40 MG TABLET. PO SCH (20:42)
[2018-09-22] MEDS: DONEPEZIL HCL 5 MG TABLET. PO SCH (20:42)
[2018-09-22] MEDS: FAMOTIDINE 20 MG TABLET PO SCH (20:43)
[2018-09-22] MEDS: NISOLDIPINE 17 MG PO SCH (20:44)
[2018-09-22] MEDS: PATCH REMOVAL. MC SCH (20:44)
[2018-09-22] MEDS: PHENYTOIN SODIUM EXTENDED 100 MG CAPSULE PO SCH (20:44)
[2018-09-23 06:26] VITALS: BP 157/74
[2018-09-23] MEDS: MULTIVITAMIN I-VITE TABLET. PO SCH ×2 (08:00→16:18)
[2018-09-23] MEDS: LIDOCAINE (700MG/PATCH) PATCH. TD SCH (08:26)
[2018-09-23] MEDS: LOSARTAN 50 MG TABLET. PO SCH (08:28)
[2018-09-23] MEDS: FLUoxetine HCL 10 MG CAPSULE PO SCH (08:30)
[2018-09-23] MEDS: POTASSIUM CHLORIDE 20 MEQ TABLET.ER. PO SCH ×2 (08:30→21:09)
[2018-09-23] MEDS: hydrALAZINE 25 MG TABLET PO SCH ×3 (08:31→16:19)
[2018-09-23] MEDS: PANTOPRAZOLE 40 MG TABLET. PO SCH ×2 (08:31→16:18)
[2018-09-23] MEDS: CALCIUM CARB/VIT D3 500/200 TABLET PO SCH ×2 (08:31→16:18)
[2018-09-23] MEDS: DEMECLOCYCLINE HCL 150 MG TABLET PO SCH ×2 (08:32→21:06)
[2018-09-23] MEDS: CARVEDILOL 12.5 MG TABLET PO SCH ×3 (08:32→21:10)
[2018-09-23] MEDS: FOLIC ACID 1 MG TABLET PO SCH (08:32)
[2018-09-23] MEDS: NYSTATIN TOPICAL POWDER 15GM BOTTLE. TP SCH ×2 (08:33→21:10)
[2018-09-23] MEDS ORDERED: ONDA4TAB12 PO (11:54)
[2018-09-23] MEDS ORDERED: NYST60PO TP (11:54)
[2018-09-23] MEDS ORDERED: FENT-73 TD (11:54)
[2018-09-23] MEDS ORDERED: LIDO700A39 TD (11:54)
[2018-09-23] MEDS: WARFARIN 3 MG TABLET. PO SCH (16:19)
[2018-09-23 18:42] VITALS: BP 155/73
[2018-09-23] MEDS: PHENYTOIN SODIUM EXTENDED 100 MG CAPSULE PO SCH (21:08)
[2018-09-23] MEDS: DONEPEZIL HCL 5 MG TABLET. PO SCH (21:09)
[2018-09-23] MEDS: FAMOTIDINE 20 MG TABLET PO SCH (21:09)
[2018-09-23] MEDS: SIMVASTATIN 40 MG TABLET. PO SCH (21:10)
[2018-09-23] MEDS: NISOLDIPINE 17 MG PO SCH (21:31)
[2018-09-23] MEDS: PATCH REMOVAL. MC SCH (21:33)
[2018-09-24 01:27] LABS: BILIRUBIN,URINE NEG (NEG); CLARITY,URINE CLEAR; COLOR,URINE YELLOW; GLUCOSE,URINE NEG (NEG)
[2018-09-24 01:28] LABS: BACTERIA,URINE 0 /HPF (0-FEW); NITRITE,URINE NEG (NEG); RBC,URINE 0 /HPF (0-2); SQUAMOUS EPITHELIAL CELL,UR OCC /LPF; UROBILINOGEN,URINE 0.2 mg/dL (0.2 mg/dL); WBC,URINE RARE /HPF (0-4)
[2018-09-24 06:00] VITALS: BP 160/64
[2018-09-24] MEDS: LIDOCAINE (700MG/PATCH) PATCH. TD SCH (08:36)
[2018-09-24] MEDS: fentaNYL 12MCG/HR 1 PATCH PATCH TD SCH (08:36)
[2018-09-24] MEDS: LOSARTAN 50 MG TABLET. PO SCH (08:37)
[2018-09-24] MEDS: CALCIUM CARB/VIT D3 500/200 TABLET PO SCH (08:37)
[2018-09-24] MEDS: MULTIVITAMIN I-VITE TABLET. PO SCH (08:37)
[2018-09-24] MEDS: FOLIC ACID 1 MG TABLET PO SCH (08:37)
[2018-09-24] MEDS: CARVEDILOL 12.5 MG TABLET PO SCH (08:37)
[2018-09-24 08:38] VITALS: BP 160/64
[2018-09-24] MEDS: PANTOPRAZOLE 40 MG TABLET. PO SCH (08:38)
[2018-09-24] MEDS: FLUoxetine HCL 10 MG CAPSULE PO SCH (08:38)
[2018-09-24] MEDS: POTASSIUM CHLORIDE 20 MEQ TABLET.ER. PO SCH (08:38)
[2018-09-24] MEDS: hydrALAZINE 25 MG TABLET PO SCH (08:38)
[2018-09-24] MEDS: DEMECLOCYCLINE HCL 150 MG TABLET PO SCH (08:39)
[2018-09-24] MEDS: NYSTATIN TOPICAL POWDER 15GM BOTTLE. TP SCH (08:39)
--- NOTE | 2018-10-06 02:58 | DS ---
DATE OF DISCHARGE: 09/24/2018 HOSPITAL COURSE: Discharged from the swing bed. The patient had problems with the ribs on her left side. For whatever reason, she had severe costochondritis. She was unable to move. She was in pain approximately 9/10. She was on the regular floor and then transferred over here to the skilled unit for continued rehabilitation care and the like. The patient received PT, OT in the usual fashion. Her warfarin was regulated by pharmacy. She made good progress and she was discharged home in good condition. IMPRESSION: Therefore of severe immobility secondary to intractable pain, possible rib fractures, osteoporosis, essential hypertension, anemia of chronic disease, severe protein malnutrition and chronic warfarin therapy. She will be on her heart healthy diet, decreased activity, and followup with the physical therapist as an outpatient. OBED PETTIT MD DR: MAHESH/kenya JOB#: [id number] / [id number]
== END 2018-09-24 09:40 | disposition home health service (06) | DRG 205 ==
LOC: 1 SOUTH 10:37 → LND 09-17 15:54
PROVIDERS: ADMIT Family Medicine; ATTEND Family Medicine
DX: M94.0 Chondrocostal junction syndrome [Tietze] (principal); E43 Unspecified severe protein-calorie malnutrition; S22.39XA Fracture of one rib, unspecified side, initial encounter for closed fracture; Z79.899 Other long term (current) drug therapy; X58.XXXA Exposure to other specified factors, initial encounter; I10 Essential (primary) hypertension; D63.8 Anemia in other chronic diseases classified elsewhere; Z68.21 Body mass index [BMI] 21.0-21.9, adult; Z79.01 Long term (current) use of anticoagulants; Y93.89 Activity, other specified; Y92.89 Other specified places as the place of occurrence of the external cause; Y99.8 Other external cause status
CPT/HCPCS: 36415; 80048; 81001; 85025; 85379; 85610; 93005; Q0162; 97110; 97112; 97116; 97530; 97535

== ENCOUNTER → 2018-10-08 | Outpatient (CLI) | payer MEDICARE, BC ==
[2018-09-24 08:38] VITALS: BP 160/64
[~2018-10-08] MED LIST changes: +FENT-73 TD; +LIDO700A39 TD; +NYST60PO TP; +ONDA4TAB12 PO
[2018-10-08 15:07] LABS: ALBUMIN 3.1 g/dL (3.4-5.0); ALBUMIN/GLOBULIN RATIO 0.9 (1.0-1.7); CALCIUM 8.3 mg/dL (8.5-10.1); CREATININE 0.8 mg/dL (0.6-1.0); GFR 68.5; POTASSIUM 4.6 mmol/L (3.5-5.1); TOTAL BILIRUBIN 0.2 mg/dL (0.2-1.0); TOTAL PROTEIN 6.7 g/dL (6.4-8.2)
== END | disposition home or self-care (01) ==
LOC: SPEC 14:36
PROVIDERS: ATTEND Family Medicine
DX: E87.1 Hypo-osmolality and hyponatremia (principal)
CPT/HCPCS: 36415; 80053

== ENCOUNTER → 2018-10-14 | Outpatient (CLI) | payer MEDICARE, BC ==
[2018-09-24 08:38] VITALS: BP 160/64
[~2018-10-14] MED LIST changes: +LIDO700A21 TD; -LIDO700A39 TD
[2018-10-14 12:28] LABS: ALBUMIN 2.9 g/dL (3.4-5.0); ALBUMIN/GLOBULIN RATIO 0.8 (1.0-1.7); CALCIUM 8.8 mg/dL (8.5-10.1); CREATININE 0.8 mg/dL (0.6-1.0); GFR 68.5; TOTAL BILIRUBIN 0.2 mg/dL (0.2-1.0); TOTAL PROTEIN 6.4 g/dL (6.4-8.2)
== END | disposition home or self-care (01) ==
LOC: SPEC 12:06
PROVIDERS: ATTEND Family Medicine
DX: E87.1 Hypo-osmolality and hyponatremia (principal)
CPT/HCPCS: 36415; 80053

== ENCOUNTER → 2018-10-22 | Outpatient (CLI) | payer MEDICARE, BC ==
[2018-09-24 08:38] VITALS: BP 160/64
[2018-10-22 17:06] LABS: ALBUMIN/GLOBULIN RATIO 0.8 (1.0-1.7); CALCIUM 7.9 mg/dL (8.5-10.1); CREATININE 0.7 mg/dL (0.6-1.0); GFR 79.9; POTASSIUM 4.9 mmol/L (3.5-5.1); TOTAL BILIRUBIN 0.2 mg/dL (0.2-1.0); TOTAL PROTEIN 6.6 g/dL (6.4-8.2)
== END | disposition home or self-care (01) ==
LOC: SPEC 16:44
PROVIDERS: ATTEND Family Medicine
DX: I69.354 Hemiplegia and hemiparesis following cerebral infarction affecting left non-dominant side (principal); I48.0 Paroxysmal atrial fibrillation; I11.9 Hypertensive heart disease without heart failure
CPT/HCPCS: 36415; 80053

== ENCOUNTER → 2018-10-29 | Outpatient (CLI) | payer MEDICARE, BC ==
[2018-10-29 13:00] LABS: ALBUMIN 3.2 g/dL (3.4-5.0); ALBUMIN/GLOBULIN RATIO 0.9 (1.0-1.7); CALCIUM 8.3 mg/dL (8.5-10.1); CREATININE 0.7 mg/dL (0.6-1.0); GFR 79.9; POTASSIUM 4.4 mmol/L (3.5-5.1); TOTAL BILIRUBIN 0.3 mg/dL (0.2-1.0); TOTAL PROTEIN 6.8 g/dL (6.4-8.2)
== END | disposition home or self-care (01) ==
LOC: SPEC 12:21
PROVIDERS: ATTEND Family Medicine
DX: E87.1 Hypo-osmolality and hyponatremia (principal)
CPT/HCPCS: 36415; 80053

== ENCOUNTER → 2018-11-04 | Outpatient (CLI) | payer MEDICARE, BC ==
[2018-11-04 12:24] LABS: ALBUMIN 3.3 g/dL (3.4-5.0); ALBUMIN/GLOBULIN RATIO 0.9 (1.0-1.7); CALCIUM 8.4 mg/dL (8.5-10.1); CREATININE 0.7 mg/dL (0.6-1.0); GFR 79.9; POTASSIUM 4.9 mmol/L (3.5-5.1); TOTAL BILIRUBIN 0.3 mg/dL (0.2-1.0); TOTAL PROTEIN 7.1 g/dL (6.4-8.2)
== END | disposition home or self-care (01) ==
LOC: SPEC 11:56
PROVIDERS: ATTEND Family Medicine
DX: I69.354 Hemiplegia and hemiparesis following cerebral infarction affecting left non-dominant side (principal); I11.9 Hypertensive heart disease without heart failure; I48.0 Paroxysmal atrial fibrillation; E87.1 Hypo-osmolality and hyponatremia
CPT/HCPCS: 36415; 80053

== ENCOUNTER → 2019-01-06 | Outpatient (CLI) | payer MEDICARE, BC ==
[2019-01-06 15:49] LABS: ALBUMIN 2.9 g/dL (3.4-5.0); ALBUMIN/GLOBULIN RATIO 0.9 (1.0-1.7); CALCIUM 7.8 mg/dL (8.5-10.1); CREATININE 0.9 mg/dL (0.6-1.0); GFR 59.8; POTASSIUM 3.9 mmol/L (3.5-5.1); TOTAL BILIRUBIN 0.2 mg/dL (0.2-1.0); TOTAL PROTEIN 6.2 g/dL (6.4-8.2)
== END | disposition home or self-care (01) ==
LOC: SPEC 15:26
PROVIDERS: ATTEND Family Medicine
DX: I69.354 Hemiplegia and hemiparesis following cerebral infarction affecting left non-dominant side (principal); I11.9 Hypertensive heart disease without heart failure; I48.0 Paroxysmal atrial fibrillation; E22.2 Syndrome of inappropriate secretion of antidiuretic hormone
CPT/HCPCS: 36415; 80053

== ENCOUNTER 2019-04-03 14:27 | Emergency (ER) | payer MEDICARE, BC ==
[~2019-04-03] VITALS: Ht 157.5 cm; Wt 55.5 kg
[~2019-04-03 14:27] MED LIST changes: +SIMV40TA18 PO; -SIMV40TA3 PO
--- NOTE | 2019-04-03 14:45 | PHYS DOC ---
Past History Past Medical History: CVA, GERD, High Cholesterol, Heart Disease, Hypertension Past Surgical History: Hysterectomy Smoking: Non-smoker Alcohol Use: None Drug Use: None Adult General Chief Complaint Chief Complaint: MECHANICAL FALL HPI HPI Patient is a 83-year-old female presents following a fall. Patient denies any complaints. She was walking into her house when she fell. She denies this being a syncopal episode. Denies any head injury. Patient's family called her primary care physician who recommended that she come into the hospital for laboratory testing because she accidentally doubled up on her Coumadin 2 days ago. Patient is denying any chest pain, palpitations, difficulty breathing, headache, change in vision, nor extremity pain. Patient has a history of hypertension and says that she took her high blood pressure medicine today.[] Review of Systems Review of Systems Constitutional: Denies fever or chills [] Eyes: Denies change in visual acuity, redness, or eye pain [] HENT: Denies nasal congestion or sore throat [] Respiratory: Denies cough or shortness of breath [] Cardiovascular: No additional information not addressed in HPI [] GI: Denies abdominal pain, nausea, vomiting, bloody stools or diarrhea [] : Denies dysuria or hematuria [] Musculoskeletal: Denies back pain or joint pain [] Integument: Denies rash or skin lesions [] Neurologic: Denies headache, focal weakness or sensory changes [] Endocrine: Denies polyuria or polydipsia [] All other systems were reviewed and found to be within normal limits, except as documented in this note. Allergies Allergies Allergies Coded Allergies Type Severity Reaction Last Updated Verified No Known Drug Allergies 09/16/18 No Physical Exam Physical Exam Constitutional: Well developed, well nourished, no acute distress, non-toxic appearance. [] HENT: Normocephalic, atraumatic, bilateral external ears normal, oropharynx moist, no oral exudates, nose normal. [] Eyes: PERRLA, EOMI, conjunctiva normal, no discharge. [] Neck: Normal range of motion, no tenderness, supple, no stridor. [] Cardiovascular:Heart rate regular rhythm, no murmur [] Lungs & Thorax: Bilateral breath sounds clear to auscultation [] Abdomen: Bowel sounds normal, soft, no tenderness, no masses, no pulsatile masses. [] Skin: Warm, dry, no erythema, no rash. [] Back: No tenderness, no CVA tenderness. [] Extremities: No tenderness, no cyanosis, no clubbing, ROM intact, no edema. [] Neurologic: Alert and oriented X 3, normal motor function, normal sensory function, no focal deficits noted. [] Psychologic: Affect normal, judgement normal, mood normal. [] EKG EKG [] Radiology/Procedures Radiology/Procedures [] Course & Med Decision Making Course & Med Decision Making Pertinent Labs and Imaging studies reviewed. (See chart for details) Emergency department course: Patient arrived, was placed in bed, and tolerated exam well. Her blood pressure improved without any medical interventions. After return of the laboratory testing, these findings were discussed with patient and her daughter who voiced understanding. All questions were answered. She was discharged in improved condition. Medical decision making: Patient with the slightly supratherapeutic INR 3.3, will have her hold her dose of Coumadin tonight and resume it tomorrow. No evidence of an anemia, no evidence of significant electrolyte abnormality or sugar abnormality.[] Dragon Disclaimer Dragon Disclaimer This electronic medical record was generated, in whole or in part, using a voice recognition dictation system. Departure Departure: Impression: Primary Impression: Accident due to mechanical fall without injury Additional Impression: Supratherapeutic INR Disposition: 01 HOME, SELF-CARE Condition: IMPROVED Referrals: OBED PETTIT MD (PCP) Follow-up in 2 days Patient Instructions: Fall Prevention and Home Safety Additional Instructions: Your INR was slightly high today, skip tonight's Coumadin dose and resume it tomorrow. Low up with your regular doctor in 2 days. Return to the ER if any pain, weakness, or any other concerns. Problem Qualifiers Primary Impression: Accident due to mechanical fall without injury Encounter type: initial encounter Qualified Codes: W19.XXXA - Unspecified fall, initial encounter SHELIAJUANA HOWELLCARLITO [place] Apr 03, 2019 14:45
[2019-04-03 15:36] LABS: BASO # 0.1 x10^3/uL (0.0-0.2); BASO % 2 % (0-3); EOS # 0.4 x10^3/uL (0.0-0.7); EOS % 8 % (0-3); HEMATOCRIT 37.4 % (36.0-47.0); HEMOGLOBIN 12.3 g/dL (12.0-15.5); LYMPH # 1.2 x10^3/uL (1.0-4.8); LYMPH % 22 % (24-48); MEAN CORPUSCULAR HEMOGLOBIN 29 pg (25-35); MEAN CORPUSCULAR HGB CONC 33 g/dL (31-37); MEAN CORPUSCULAR VOLUME 87 fL (79-100); MONO # 0.8 x10^3/uL (0.0-1.1); MONO % 15 % (0-9); NEUT # 2.9 x10^3uL (1.8-7.7); NEUT % 54 % (31-73); PLATELET COUNT 242 x10^3/uL (140-400); RED BLOOD COUNT 4.29 x10^6/uL (3.50-5.40); RED CELL DISTRIBUTION WIDTH 12.9 % (11.5-14.5); WHITE BLOOD COUNT 5.4 x10^3/uL (4.0-11.0)
[2019-04-03 15:43] LABS: CALCIUM 8.5 mg/dL (8.5-10.1); CREATININE 0.8 mg/dL (0.6-1.0); GFR 68.5; POTASSIUM 4.6 mmol/L (3.5-5.1)
[2019-04-03 16:07] VITALS: BP 184/85
== END 2019-04-03 16:36 | disposition home or self-care (01) ==
LOC: ER 14:27
DX: R79.1 Abnormal coagulation profile (principal); K21.9 Gastro-esophageal reflux disease without esophagitis; E78.00 Pure hypercholesterolemia, unspecified; I11.9 Hypertensive heart disease without heart failure; Z86.73 Personal history of transient ischemic attack (TIA), and cerebral infarction without residual deficits; W18.39XA Other fall on same level, initial encounter; Y93.01 Activity, walking, marching and hiking; Y92.89 Other specified places as the place of occurrence of the external cause; Y99.8 Other external cause status
CPT/HCPCS: 36415; 80048; 85025; 85610; 85730; 99284

== ENCOUNTER 2019-04-11 12:33 | Emergency (ER) | payer MEDICARE, BC ==
[~2019-04-11] VITALS: Ht 157.5 cm; Wt 55.5 kg
[2019-04-11 12:35] VITALS: BP 151/69
--- NOTE | 2019-04-11 12:58 | PHYS DOC ---
Past History Past Medical History: CVA, GERD, High Cholesterol, Heart Disease, Hypertension Past Surgical History: Hysterectomy, Tonsillectomy Smoking: Non-smoker Alcohol Use: None Drug Use: None Adult General Chief Complaint Chief Complaint: MECHANICAL FALL HPI HPI Patient is an 83-year-old female, on warfarin, presents to the emergency department after a mechanical fall yesterday, when the patient lost her balance, and fell, landing on her left knee, and is also complaining of some left hip pain. She does not think she hit her head but she did break her glasses. She did fall about a week ago and her PCP was reportedly upset that a CT head was not obtained. The patient denies headache, denies any nausea, vomiting, neck pain, back pain, or other extremity pain. Ambulation and palpation of her left knee seems to worsen her pain. There are no alleviating factors to her symptoms. Review of Systems Review of Systems Constitutional: Denies fever or chills [] Eyes: Denies change in visual acuity, redness, or eye pain [] HENT: Denies nasal congestion or sore throat [] Respiratory: Denies cough or shortness of breath [] Cardiovascular: The patient denies any shortness of breath, chest pain, palpitations, or orthopneaI [] GI: Denies abdominal pain, nausea, vomiting, bloody stools or diarrhea [] : Denies dysuria or hematuria [] Musculoskeletal: Denies back pain or joint pain other than as noted in the history of present illness [] Integument: Denies rash or skin lesions [] Neurologic: Denies headache, focal weakness or sensory changes [] Endocrine: Denies polyuria or polydipsia [] All other systems were reviewed and found to be within normal limits, except as documented in this note. Allergies Allergies Allergies Coded Allergies Type Severity Reaction Last Updated Verified No Known Drug Allergies 09/16/18 No Physical Exam Physical Exam PHYSICAL EXAM: CONSTITUTIONAL: Well developed, well nourished HEAD: normocephalic, atraumatic. EENT: PERRL, EOMI. Conjunctivae normal color, sclerae non-icteric; moist mucous membranes. NECK: Supple, non-tender; no meningismus. Normal cervical spine LUNGS: Lungs CTA, breathing even and unlabored. Normal air movement. HEART: Regular rate and rhythm, no murmur CHEST: No deformity; non-tender ABDOMEN: The abdomen is soft, and non-tender, no masses or bruits. EXTREM: There is mild tenderness to palpation of the left knee, range of motion is present, although slightly limited secondary to pain. There is normal range of motion left hip, without any reproducible tenderness to palpation. The pelvis is stable and nontender. The remainder the extremities are atraumatic, with normal ROM; no deformity, no calf tenderness. Normal pulses palpable in all extremities. There is no pedal edema. SKIN: No rash; no diaphoresis NEURO: Alert; normal speech and cognition; CN's grossly intact; strength grossly intact without focal deficit. BACK: No CVA TTP.There is no bony tenderness to palpation of the thoracic or lumbar spine. Current Patient Data Vital Signs Vital Signs Date Time Temp Pulse Resp B/P (MAP) Pulse Ox O2 Delivery O2 Flow Rate FiO2 04/11/19 12:33 97.9 66 18 151/69 (96) 99 Room Air EKG EKG [] Radiology/Procedures Radiology/Procedures PROCEDURE: CT HEAD WO CONTRAST Examination: CT HEAD WO CONTRAST History: Fall, pain Comparison/Correlation: 08/25/2018 CT head without contrast Findings: Axial images of the head were obtained without contrast. 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 Chronic ischemic changes white matter noted. No intracranial hemorrhage. No hemorrhage, midline shift, or mass effect. Slight ventriculomegaly which may represent volume loss again seen. Bony structures are intact. Impression: No suspicious process. 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 No significant change.[] PROCEDURE: HIP LEFT 2 VIEW Study: 1. HIP LEFT 2 VIEW 2. KNEE LEFT 3V Indication: Fall with pain. Comparison: None. Findings: No acute fracture or malalignment seen at the left hip noting that the frog-leg view is degraded due to overexposure. Partially visualized advanced degenerative changes at the lower lumbar spine. The sacrum is not well evaluated due to bowel gas and osteopenia. No acute fracture or traumatic malalignment seen at the knee. No large knee joint effusion. Extensive vascular calcifications. Impression: No acute fracture or malalignment seen at the left hip or left knee. Course & Med Decision Making Course & Med Decision Making Pertinent Labs and Imaging studies reviewed. (See chart for details) [] Dragon Disclaimer Dragon Disclaimer This electronic medical record was generated, in whole or in part, using a voice recognition dictation system. Departure Departure: Impression: Primary Impression: Contusion Additional Impression: Accidental fall Disposition: 01 HOME, SELF-CARE Condition: STABLE Referrals: OBED PETTIT MD (PCP) Patient Instructions: Contusion, Fall Prevention and Home Safety Problem Qualifiers VENANCIO ADAMS MD Apr 11, 2019 12:58
--- NOTE | 2019-04-11 13:29 | RAD ---
Examination: CT HEAD WO CONTRAST History: Fall, pain Comparison/Correlation: 08/25/2018 CT head without contrast Findings: Axial images of the head were obtained without contrast. 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 Chronic ischemic changes white matter noted. No intracranial hemorrhage. No hemorrhage, midline shift, or mass effect. Slight ventriculomegaly which may represent volume loss again seen. Bony structures are intact. Impression: No suspicious process. 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 No significant change. PQRS Compliance Statement: One or more of the following individualized dose reduction techniques were utilized for this examination: 1. Automated exposure control 2. Adjustment of the mA and/or kV according to patient size 3. Use of iterative reconstruction technique Electronically signed by: Jamel Adams MD (04/11/2019 1:26 PM) [facility]
--- NOTE | 2019-04-11 13:51 | RAD ---
Study: 1. HIP LEFT 2 VIEW 2. KNEE LEFT 3V Indication: Fall with pain. Comparison: None. Findings: No acute fracture or malalignment seen at the left hip noting that the frog-leg view is degraded due to overexposure. Partially visualized advanced degenerative changes at the lower lumbar spine. The sacrum is not well evaluated due to bowel gas and osteopenia. No acute fracture or traumatic malalignment seen at the knee. No large knee joint effusion. Extensive vascular calcifications. Impression: No acute fracture or malalignment seen at the left hip or left knee. Electronically signed by: PETER HALL MD (04/11/2019 1:47 PM) [facility]
== END 2019-04-11 14:05 | disposition home or self-care (01) ==
LOC: ER 12:33
DX: S80.02XA Contusion of left knee, initial encounter (principal); S70.02XA Contusion of left hip, initial encounter; I25.10 Atherosclerotic heart disease of native coronary artery without angina pectoris; K21.9 Gastro-esophageal reflux disease without esophagitis; E78.00 Pure hypercholesterolemia, unspecified; I11.9 Hypertensive heart disease without heart failure; R51 Headache; W18.39XA Other fall on same level, initial encounter; Y93.89 Activity, other specified; Y92.89 Other specified places as the place of occurrence of the external cause; Y99.8 Other external cause status
CPT/HCPCS: 70450; 73502; 73562; 99284-25

== ENCOUNTER 2020-01-19 16:39 | Emergency (ER) | payer MEDICARE, BC ==
[~2020-01-19] VITALS: Ht 157.5 cm; Wt 54.9 kg
[2020-01-19 16:59] VITALS: BP 160/60
--- NOTE | 2020-01-19 17:20 | PHYS DOC ---
Past History Past Medical History: CVA, Dementia, Depression, GERD, High Cholesterol, Hypertension, Seizure, Other Additional Past Medical Histor: SIADH; LOW POTASSIUM; MACULAR DEGEN; OSTEOPOROSIS Past Surgical History: Hysterectomy, Tonsillectomy Smoking: Non-smoker Alcohol Use: None Drug Use: None General Adult EDM: Chief Complaint: MECHANICAL FALL HPI: HPI: Patient is a 84-year-old female with a history of dementia who presents s/p mechanical fall that occurred this afternoon. Patient states that she had stood up from her table and tripped over her feet. Patient lives at home with her and gets around with a walker. Patient denies any loss of consciousness but reports she hit her forehead on the way down. Patient was able to ambulate after the fall. Patient denies any dizziness, nausea, or vomiting. Patient is currently on Coumadin for a history of CVA. Patient denies any chest pain, shortness of breath, changes in vision, or headaches. Patient denies any pain at this time. Review of Systems: Review of Systems: Constitutional: Denies fever or chills Eyes: Denies redness or eye pain HENT: Denies nasal congestion or sore throat Respiratory: Denies cough or shortness of breath Cardiovascular: Denies chest pain or palpitations GI: Denies abdominal pain, nausea, or vomiting : Denies dysuria or hematuria Musculoskeletal: Denies back pain or joint pain Integument: Denies rash or skin lesions Neurologic: Denies headache, focal weakness or sensory changes Complete systems were reviewed and found to be within normal limits, except as documented in this note. Allergies: Allergies: Allergies Coded Allergies Type Severity Reaction Last Updated Verified No Known Drug Allergies 01/19/20 No Physical Exam: PE: Constitutional: Well developed, well nourished, no acute distress, non-toxic appearance HENT: Mild circular hematoma midline on forehead Eyes: PERRL, EOMI, conjunctiva normal, no discharge Neck: Normal range of motion, no tenderness, supple Lungs & Thorax: No respiratory distress, equal chest rise and fall Abdomen: Soft, no tenderness Skin: Warm, dry, no erythema, no rash Back: No tenderness and normal ROM, no CVA tenderness Extremities: No tenderness, ROM intact, no edema Neurologic: Alert and oriented X 3, normal motor function, normal sensory function, no focal deficits noted. CN II-XII grossly intact bilaterally. Psychologic: Affect normal, judgment normal Current Patient Data: Vital Signs: Vital Signs Date Time Temp Pulse Resp B/P (MAP) Pulse Ox O2 Delivery O2 Flow Rate FiO2 01/19/20 16:59 97.6 66 23 160/60 (93) 98 Room Air EKG: EKG: EKG at 1734 shows normal sinus rhythm with prolonged MN interval, heart rate 64, QRS 70, QTc 423, no ST elevations. Radiology/Procedures: Radiology/Procedures: PROCEDURE: CT HEAD AND CERVICAL SPINE WO CT HEAD AND CERVICAL SPINE WO History: Reason: headache / Spl. Instructions: / History: Comparison: April 11, 2019 Technique: Noncontrast CT imaging was performed of the head and cervical spine. Coronal and sagittal reconstructions were performed. Exposure: One or more of the following individualized dose reduction techniques were utilized for this examination: 1. Automated exposure control 2. Adjustment of the mA and/or kV according to patient size 3. Use of iterative reconstruction technique. Findings: Head CT: No intracranial hemorrhage. No mass effect. Right occipital encephalomalacia. Ex vacuo dilatation of the right posterior lateral ventricle, unchanged. Mild prominence of the lateral and third ventricle, unchanged. Additional foci of decreased attenuation within the hemispheric white matter, most often due to chronic microvascular ischemia, unchanged. Mild brain parenchymal volume loss. Anterior scalp soft tissue swelling. Imaged orbits are unremarkable. Imaged paranasal sinuses and mastoid air cells are clear. No acute calvarial fracture. Left zygomatic arch benign-appearing bony exostosis. TMJ arthropathy. Cervical spine CT: Grade 1 anterolisthesis C3 on C4. Mild retrolisthesis C5 on C6. Grade 1 anterolisthesis C7 on T1. Normal vertebral body height. No fracture. Moderate multilevel degenerative disc changes most prominent C5-C6. Multilevel facet arthropathy. Mild canal narrowing C5-C6. No high-grade canal stenosis. Multilevel neuroforaminal narrowing. Soft tissues unremarkable. Impression: Head CT: 1. No acute intracranial abnormality. 2. Anterior scalp soft tissue swelling. 3. Right occipital encephalomalacia, unchanged. Cervical spine CT: 1. No acute fracture or subluxation of the cervical spine. 2. Moderate multilevel cervical spondylosis. Electronically signed by: Idris Zuniga DO (01/19/2020 6:29 PM) [facility] Course & Med Decision Making: Course & Med Decision Making Pertinent Labs and Imaging studies reviewed. (See chart for details) Patient is a 84-year-old female with a history of dementia and CVA on Coumadin who presents s/p mechanical fall that occurred this afternoon. Labs were checked which showed INR of 2.1. CBC and CMP were within normal limits. UA was checked at request of her PCP Dr. Palumbo and was unremarkable. Patient denies any fevers, chills, dysuria, hematuria, increased frequency of urination, or any other symptoms that may indicate she may have a UTI. CT head and cervical spine showed no acute findings. Patient remained comfortable during her stay and denied any pain medications. Ice pack was provided for her hematoma. Dragon Disclaimer: Dragon Disclaimer: This electronic medical record was generated, in whole or in part, using a voice recognition dictation system. Departure Departure: Impression: Primary Impression: Fall Qualified Codes: W19.XXXA - Unspecified fall, initial encounter Additional Impression: Head contusion Qualified Codes: S00.03XA - Contusion of scalp, initial encounter Disposition: HOME/RESIDENCE PRIOR TO ADM Condition: STABLE Referrals: OBED PALUMBO MD (PCP) Patient Instructions: Facial or Scalp Contusion, [id number], Fall Prevention and Home Safety, [id number] Additional Instructions: ICE areas of swelling and/or bruising 20 min on then off for 20 mins several times daily for next few days. Justification of Admission: Justification of Admission: Justification of Admission Dx: N/A BEATRIZ YI DO Jan 19, 2020 17:20
[2020-01-19 18:28] LABS: BASO % 1 % (0-3); EOS # 0.5 x10^3/uL (0.0-0.7); EOS % 8 % (0-3); HEMATOCRIT 37.2 % (36.0-47.0); HEMOGLOBIN 12.4 g/dL (12.0-15.5); LYMPH # 1.2 x10^3/uL (1.0-4.8); LYMPH % 19 % (24-48); MEAN CORPUSCULAR HEMOGLOBIN 30 pg (25-35); MEAN CORPUSCULAR HGB CONC 33 g/dL (31-37); MEAN CORPUSCULAR VOLUME 89 fL (79-100); MONO # 0.9 x10^3/uL (0.0-1.1); MONO % 15 % (0-9); NEUT # 3.5 x10^3uL (1.8-7.7); NEUT % 58 % (31-73); PLATELET COUNT 221 x10^3/uL (140-400); RED CELL DISTRIBUTION WIDTH 13.7 % (11.5-14.5)
--- NOTE | 2020-01-19 18:32 | RAD ---
CT HEAD AND CERVICAL SPINE WO History: Reason: headache / Spl. Instructions: / History: Comparison: April 11, 2019 Technique: Noncontrast CT imaging was performed of the head and cervical spine. Coronal and sagittal reconstructions were performed. Exposure: One or more of the following individualized dose reduction techniques were utilized for this examination: 1. Automated exposure control 2. Adjustment of the mA and/or kV according to patient size 3. Use of iterative reconstruction technique. Findings: Head CT: No intracranial hemorrhage. No mass effect. Right occipital encephalomalacia. Ex vacuo dilatation of the right posterior lateral ventricle, unchanged. Mild prominence of the lateral and third ventricle, unchanged. Additional foci of decreased attenuation within the hemispheric white matter, most often due to chronic microvascular ischemia, unchanged. Mild brain parenchymal volume loss. Anterior scalp soft tissue swelling. Imaged orbits are unremarkable. Imaged paranasal sinuses and mastoid air cells are clear. No acute calvarial fracture. Left zygomatic arch benign-appearing bony exostosis. TMJ arthropathy. Cervical spine CT: Grade 1 anterolisthesis C3 on C4. Mild retrolisthesis C5 on C6. Grade 1 anterolisthesis C7 on T1. Normal vertebral body height. No fracture. Moderate multilevel degenerative disc changes most prominent C5-C6. Multilevel facet arthropathy. Mild canal narrowing C5-C6. No high-grade canal stenosis. Multilevel neuroforaminal narrowing. Soft tissues unremarkable. Impression: Head CT: 1. No acute intracranial abnormality. 2. Anterior scalp soft tissue swelling. 3. Right occipital encephalomalacia, unchanged. Cervical spine CT: 1. No acute fracture or subluxation of the cervical spine. 2. Moderate multilevel cervical spondylosis. Electronically signed by: Idris Zuniga DO (01/19/2020 6:29 PM) [facility]
[2020-01-19 18:33] LABS: CALCIUM 8.5 mg/dL (8.5-10.1); CREATININE 0.9 mg/dL (0.6-1.0); GFR 59.7; POTASSIUM 5.1 mmol/L (3.5-5.1)
[2020-01-19 18:48] LABS: ALBUMIN/GLOBULIN RATIO 0.7 (1.0-1.7); MAGNESIUM 2.1 mg/dL (1.8-2.4); TOTAL BILIRUBIN 0.3 mg/dL (0.2-1.0); TOTAL PROTEIN 7.3 g/dL (6.4-8.2)
[2020-01-19 20:07] LABS: CLARITY,URINE CLEAR; COLOR,URINE STRAW
[2020-01-19 20:08] LABS: BACTERIA,URINE 0 /HPF (0-FEW); BILIRUBIN,URINE NEG (NEG); GLUCOSE,URINE NEG (NEG); NITRITE,URINE NEG (NEG); RBC,URINE RARE /HPF (0-2); UROBILINOGEN,URINE 0.2 mg/dL (0.2 mg/dL); WBC,URINE 0 /HPF (0-4)
--- NOTE | 2020-01-20 07:34 | EKG ---
[address] [address] Test Date: 2020-01-19 Test Time: 17:34:34 Pat Name: EZEQUIEL GARCIA Department: Room: Gender: F Participant Administrator: EUGENE : 1935 Requested By: BEATRIZ YI Order Number: [id number] Reading MD: Measurements Intervals Ledbetter Rate: 64 P: 0 VT: 262 QRS: 10 QRSD: 70 T: 31 QT: 410 QTc: 423 Interpretive Statements SINUS RHYTHM PROLONGED VT INTERVAL T ABNORMALITY IN ANTERIOR LEADS ABNORMAL ECG RI6.02 No previous ECG available for comparison
== END 2020-01-19 21:10 | disposition home or self-care (01) ==
LOC: ER 16:39
DX: S00.03XA Contusion of scalp, initial encounter (principal); F03.90 Unspecified dementia, unspecified severity, without behavioral disturbance, psychotic disturbance, mood disturbance, and anxiety; F32.9 Major depressive disorder, single episode, unspecified; K21.9 Gastro-esophageal reflux disease without esophagitis; E78.00 Pure hypercholesterolemia, unspecified; I10 Essential (primary) hypertension; Z86.73 Personal history of transient ischemic attack (TIA), and cerebral infarction without residual deficits; W18.09XA Striking against other object with subsequent fall, initial encounter; Y93.89 Activity, other specified; Y92.89 Other specified places as the place of occurrence of the external cause; Y99.8 Other external cause status
CPT/HCPCS: 36415; 70450; 72125; 80053; 81001; 82553; 83735; 84484; 85025; 85610; 85730; 93005; 99285-25

== ENCOUNTER 2020-09-16 14:46 | Emergency (ER) | payer MEDICARE, BC ==
[~2020-09-16] VITALS: Ht 157.5 cm; Wt 51.4 kg
[~2020-09-16 14:46] MED LIST changes: -ALEN70TA6 PO; +ALEN70TA71 PO
--- NOTE | 2020-09-16 15:41 | PHYS DOC ---
Past History Past Medical History: CVA, Dementia, Depression, GERD, High Cholesterol, Hypertension, Seizure, Other Additional Past Medical Histor: SIADH; LOW POTASSIUM; MACULAR DEGEN; OSTEOPOROSIS (BEATRIZ LEDBETTER APRN) Past Surgical History: Hysterectomy, Tonsillectomy (BEATRIZ LEDBETTER APRN) Smoking: Non-smoker Alcohol Use: None Drug Use: None (BEATRIZ LEDBETTER APRN) Adult General Chief Complaint Chief Complaint: LACERATION/AVULSION HPI HPI Patient is a 85 year old female who presents with complaints of a fall just prior to arrival. Patient's daughters are at bedside. Patient does not recall fall. This fall was not witnessed. It is unknown if there was any loss of consciousness. Patient does not believe she lost consciousness however. P renny states that she fell in the house, she got up and walked to where her was in her room on the other side of the home and told him. Patient's daughters were alerted and picked her up and brought her to the emergency department today for evaluation. Patient denies any head or neck pain. Patient denies any visual disturbances. Patient denies any numbness or tingling to her extremities. Patient ambulates with steady gait. Patient denies any aches or pains to her body. Patient states that she cut the back of her head. Bleeding is controlled at this time. Patient reports a past medical history of CVA 10 years ago, states that she takes Dilantin for seizures however has not had a seizure in several years, reports a history of hypertension, needing potassium supplements, upset stomach, S high ADH, depression, chronic UTIs, calcium and vitamin D deficiency, GERD, hypercholesterol, seizures, dementia, macular degeneration, osteoporosis, heart dysrhythmias. Patient denies any shortness of breath, denies chest pain, denies visual disturbances, denies neurological changes, denies nausea vomiting diarrhea or abdominal pains. Patient denies any physical complaints or physical concerns other than her fall and the cut on the back of her head. Patient reports her primary care physician is Dr. Pettit, patient reports her primary neurologist is Dr. Quispe. Patient reports she is currently taking an antibiotic for a 3-week UTI, monitored by Dr. Pettit. Patient lives at home with her . (BEATRIZ LEDBETTER APRN) Review of Systems Review of Systems 14 body systems of review of systems have been reviewed. See HPI for pertinent positives and negative responses, otherwise all other systems are negative, nonpertinent or noncontributory. (BEATRIZ LEDBETTER APRN) Allergies Allergies Allergies Coded Allergies Type Severity Reaction Last Updated Verified No Known Drug Allergies 01/19/20 No (BEATRIZ LEDBETTER APRN) Physical Exam Physical Exam Constitutional: Well developed, well nourished, no acute distress, non-toxic appearance. 85-year-old female in no apparent distress. HENT: Normocephalic, atraumatic, bilateral external ears normal, oropharynx and oral mucosa sticky, no oral exudates, nose normal. No skull depressions appreciated, small occipital parietal 2 mm laceration with contusion, bleeding controlled. Bilateral tympanic membranes within normal limits, no drainage from bilateral external auditory canals, no drooling, no trismus, no sotomayor's sign, no raccoon eyes. Eyes: PERRLA, EOMI, conjunctiva normal, no discharge. Satisfactory 6 cardinal eye movements. Patient history of macular degeneration denies any visual c hanges since fall. Neck: Normal range of motion, no tenderness, supple, no stridor. No C-spine tenderness, no nuchal rigidity, no meningeal signs. Cardiovascular:Heart rate regular rhythm, no murmur heart sounds S1-S2, to auscultation. Lungs & Thorax: Bilateral breath sounds clear to auscultation no adventitious lung sounds appreciated. Abdomen: Bowel sounds normal, soft, no tenderness, no masses, no pulsatile masses. No bruising or abrasions to the abdomen. Skin: Warm, dry, no erythema, no rash. No abrasions noted on the trunk, upper or lower extremities, face or neck. Back: No tenderness, no CVA tenderness. No bruising appreciated of the back. No abrasions appreciated on the back. Extremities: No tenderness, no cyanosis, no clubbing, ROM intact, no edema. Distal cap refill less than 2 seconds, +2/4 pulses. Neurologic: Alert and oriented X 3, normal motor function, normal sensory function, no focal deficits noted. Psychologic: Affect normal, judgement normal, mood normal. (BEATRIZ LEDBETTER APRN) Current Patient Data Vital Signs Vital Signs Date Time Temp Pulse Resp B/P (MAP) Pulse Ox O2 Delivery O2 Flow Rate FiO2 09/16/20 15:00 97.9 65 18 158/67 (97) 99 Room Air (BEATRIZ LEDBETTER APRN) EKG EKG EKG performed at 1603 by house respiratory therapy staff shows a normal sinus rhythm without other ectopy noted AL interval 0.244, QTc interval 0.140, no acute's STEMI, no ACS, no acute ischemia appreciated, EKG interpreted by ED attending physician Dr. Mancia. (BEATRIZ LEDBETTER APRN) Radiology/Procedures Radiology/Procedures PATIENT: EZEQUIEL GARCIA ACCOUNT: [id number] : 1935 LOCATION: ER AGE: 85 SEX: F EXAM STATUS: REG ER ORD. PHYSICIAN: BEATRIZ LEDBETTER APRN REASON: FALL, UNKNOWN LOSS OF CONSCIOUSNESS PROCEDURE: CT HEAD AND CERVICAL SPINE WO Exam: CT head without contrast. Date: 09/16/2020, comparison:None available Indication: Fall, unknown loss of consciousness Technique: 5 mm axial images of the head were obtained without contrast. Findings: There is low attenuation within the periventricular white matter consistent with chronic small vessel ischemic disease. Prominence of cortical sulci and ventricular system is noted. There is cerebral atrophy. Unchanged right occipital encephalomalacia breast from prior infarct.. Midline structures are central. No hydrocephalus. No suspicious cerebral edema. No mass lesion or midline shift is seen. No extra axial fluid collection, intracranial hemorrhage or acute ischemia is detected. The visualized paranasal sinuses and mastoid air cells are clear. The osseous calvarium appears unremarkable. Impression: 1.Chronic small vessel ischemic disease and cerebral atrophy and right occipital encephalomalacia 2.No acute findings. PQRS Compliance Statement: One or more of the following individualized dose reduction techniques were utilized for this examination: 1. Automated exposure control 2. Adjustment of the mA and/or kV according to patient size 3. Use of iterative reconstruction technique Electronically signed by: Shawna Hughes MD (09/16/2020 4:32 PM) [facility] DICTATED AND SIGNED BY: SHAWNA HUGHES MD DATE: 09/16/20 1629 CC: BEATRIZ LEDBETTER APRN; OBED PETTIT MD ~MTH0 0 (BEATRIZ LEDBETTER APRN) Heart Score C/O Chest Pain: No Risk Factors: Risk Factors: DM, Current or recent (<one month) smoker, HTN, HLP, family history of CAD, obesity. Risk Scores: Risk Factors: DM, Current or recent (<one month) smoker, HTN, HLP, family history of CAD, obesity. (BEATRIZ LEDBETTER APRN) Course & Med Decision Making Course & Med Decision Making Pertinent Labs and Imaging studies reviewed. (See chart for details) 85-year-old female, vital signs reviewed, presents emergency department with chief complaint of fall at home just prior to arrival. Patient has a cardiac history, CVA history, seizure history, it is unknown if fall was related to patient's history. Patient does not recall fall. Patient does not believe she lost consciousness, patient did suffer a small 2 mm laceration to the scalp. Patient is alert and oriented x3, patient examination unremarkable except for scalp laceration patient's NIHSS stroke scale equals 0, related to patient presentation will order CT head and C-spine without IV contrast. See laceration repair note. The patient's tetanus status was greater than 5 years ago. The patient's tetanus status was brought up-to-date in the emergency department t xiao with Adacel medication. Will order EKG, labs, urinalysis assay to assess current antibiotic p.o. regimen for UTI. Patient is EKG unremarkable, CT head and C-spine nonconcerning per house radiologist rotation, patient's Dilantin level within normal limits, patient's troponin I not elevated, the patient has a history of low sodium SIADH with a sodium level of 133 however related to patient's sticky oral mucosa will give 500 cc normal saline bolus. Discussed findings with patient, patient states she feels good and wants to go home. We will discussed patient case with patient's primary care physician Dr. Pettit. Patient's urinary tract infection equivocal, will recommend the patient to continue taking her antibiotic regimen. Patient case discussed with patient's primary care physician Dr. Pettit who recommended patient follow-up with him in 5 to 7 days for reevaluation and removal of singles scalp staple. Patient gave verbal understanding of discharge home instructions, head injury precautions, postconcussive syndrome signs and symptoms, return to ER precautions or concerns, follow-up with your primary care in 5 to 7 days, stapled skin care. Patient had no further questions or concerns, states she is ready to go home and remains pain-free, patient was discharged home without incident. (BEATRIZ LEDBETTER APRN) Dragon Disclaimer Dragon Disclaimer This electronic medical record was generated, in whole or in part, using a voice recognition dictation system. (BEATRIZ LEDBETTER APRN) Laceration Repair Lac Repair Indication: 2 mm scalp laceration. Patient on Coumadin. Procedure: The patient was placed in the appropriate position and anesthesia around the not indicated. The area was then with chlorhexidine skin cleanser and normal saline. The laceration was closed with 1 dermal staple. The wound area was then dressed with bacitracin. Total repaired wound length: 2 mm. Other Items: No other items The patient tolerated the procedure well. Complications: There were no complications. (BEATRIZ LEDBETTER APRN) Attending Co-Sign The patient was seen and interviewed as well as examined at the bedside. The chart was reviewed. The case was discussed. Agree with the plan of care. (CHRISTY MANCIA DO) Departure Departure: Impression: Primary Impression: Fall Additional Impressions: Scalp laceration Diphtheria, tetanus, acellular pertussis, and inactivated poliovirus vaccine (DTaP-IPV) administered Urinary tract infection Injury of head in adult Concussion Disposition: 01 HOME / SELF CARE / HOMELESS Condition: GOOD Referrals: OBED PETTIT MD (PCP) Patient Instructions: Concussion and Brain Injury, Head Injury, Adult, Staple Care and Removal, Staple Wound Closure, [id number], Stitches, Daniel or Skin Adhesive Strips, [id number] Additional Instructions: You are seen today emergency department for a fall, you have suffered a small laceration to the back of your scalp, this was repaired with a single staple, please cleanse daily and apply antibiotic ointment. I spoke to your primary care physician Dr. Pettit who recommended you see him in 5 to 7 days for reevaluation and removal of your staple. I have attached information for head injury and concussion signs and symptoms to this document, please review. Please return to the emergency department for worsening symptoms or other concerns. As we discussed, please continue your antibiotic regimen for your urinary tract infection. EMERGENCY DEPARTMENT GENERAL DISCHARGE INSTRUCTIONS Thank you for coming to [facility] (ED) today and trusting us with you care. We trust that you had a positivie experience in our Emergency Department. If you wish to speak to the department management, you may call the director at [phone]. YOUR FOLLOW UP INSTRUCTIONS ARE FOLLOWS: 1. Do you have a private Doctor? If you do not have a private doctor, please ask for a resource list of physicians or clinics that may be able to assist you with follow up care. 2. The Emergency Physician has interpreted your x-rays. The X-Ray specialist will also review them. If there is a change in the findings, you will be notified in 48 hours when at all possible. 3. A lab test or culture has been done, your results will be reviewed and you will be notified if you need a change in treatment. ADDITIONAL INSTRUCTIONS AND INFORMATION: 1. Your care today has been supervised by a physician who is specially trained in emergency care. Many problems require more than one evaluation for a complete diagnosis and treatment. We recommend that you schedule your follow up appointment as recommended to ensure complete treatment of you illness or injury. If you are unable to obtain follow up care and continue to have a problem, or if your condition worsens, we recommend that you return to the ED. 2. We are not able to safely determine your condition over the phone nor are we able to give sound medical advice over the phone. For these safety reasons, if you call for medical advice we will ask you to come to the ED for further evaluation. 3. If you have any questions regarding these discharge instructions please call the ED at [phone]. SAFETY INFORMATION: In the interest of safety, wellness, and injury prevention; we encourage you to wear your sealbelt, if you smoke; quite smoking, and we encourage family to use a protective helmet for bicycling and other sporting events that present an increased risk for head injury. IF YOUR SYMPTOMS WORSEN OR NEW SYMPTOMS DEVELOP, OR YOU HAVE CONCERNS ABOUT YOUR CONDITION; OR IF YOUR CONDITION WORSENS WHILE YOU ARE WAITING FOR YOUR FOLLOW UP APPOINTMENT; EITHER CONTACT YOUR PRIMARY CARE DOCTOR, THE PHYSICIAN WHOSE NAME AND NUMBER YOU WERE GIVEN, OR RETURN TO THE ED IMMEDIATELY. Problem Qualifiers Primary Impression: Fall Encounter type: initial encounter Qualified Codes: W19.XXXA - Unspecified fall, initial encounter Additional Impressions: Scalp laceration Encounter type: initial encounter Qualified Codes: S01.01XA - Laceration without foreign body of scalp, initial encounter Urinary tract infection Urinary tract infection type: site unspecified Hematuria presence: without hematuria Qualified Codes: N39.0 - Urinary tract infection, site not specified Concussion Encounter type: initial encounter Loss of consciousness presence/duration: without LOC Qualified Codes: S06.0X0A - Concussion without loss of consciousness, initial encounter BEATRIZ LEDBETTER APRN September 16, 2020 15:41 CHRISTY MANCIA DO September 18, 2020 12:17
[2020-09-16] MEDS ORDERED: DIPH,PERTUSS(ACELL),TET VAC/PF 0.5 ML SYRINGE. VAX IM ONE (16:15)
[2020-09-16 16:22] LABS: BASO % 1 % (0-3); EOS # 0.6 x10^3/uL (0.0-0.7); EOS % 14 % (0-3); HEMATOCRIT 34.9 % (36.0-47.0); HEMOGLOBIN 11.7 g/dL (12.0-15.5); LYMPH # 0.8 x10^3/uL (1.0-4.8); LYMPH % 18 % (24-48); MEAN CORPUSCULAR HEMOGLOBIN 30 pg (25-35); MEAN CORPUSCULAR HGB CONC 34 g/dL (31-37); MEAN CORPUSCULAR VOLUME 88 fL (79-100); MONO # 0.7 x10^3/uL (0.0-1.1); MONO % 16 % (0-9); NEUT # 2.3 x10^3uL (1.8-7.7); NEUT % 52 % (31-73); PLATELET COUNT 215 x10^3/uL (140-400); RED BLOOD COUNT 3.97 x10^6/uL (3.50-5.40); RED CELL DISTRIBUTION WIDTH 14.3 % (11.5-14.5); WHITE BLOOD COUNT 4.3 x10^3/uL (4.0-11.0)
[2020-09-16 16:31] LABS: PHENY 15.4 mcg/mL (10.0-20.0)
--- NOTE | 2020-09-16 16:34 | RAD ---
Exam: CT head without contrast. Date: 09/16/2020, comparison:None available Indication: Fall, unknown loss of consciousness Technique: 5 mm axial images of the head were obtained without contrast. Findings: There is low attenuation within the periventricular white matter consistent with chronic small vessel ischemic disease. Prominence of cortical sulci and ventricular system is noted. There is cerebral at rophy. Unchanged right occipital encephalomalacia breast from prior infarct.. Midline structures are central. No hydrocephalus. No suspicious cerebral edema. No mass lesion or mid line shift is seen. No extra axial fluid collection, intracranial hemorrhage or acute ischemia is de tected. The visualized paranasal sinuses and mastoid air cells are clear. The osseous calvarium appea rs unremarkable. Impression: 1.Chronic small vessel ischemic disease and cerebral atrophy and right occipital encephalomalacia 2.No acute findings. PQRS Compliance Statement: One or more of the following individualized dose reduction techniques were utilized for this examinat ion: 1. Automated exposure control 2. Adjustment of the mA and/or kV according to patient size 3. Use of iterative reconstruction technique Electronically signed by: Shawna Hughes MD (09/16/2020 4:32 PM) [facility]
--- NOTE | 2020-09-16 16:46 | EKG ---
[address] [address] Test Date: 2020-09-16 Test Time: 16:03:55 Pat Name: EZEQUIEL GARCIA Department: Room: Gender: F Anaesthesiologist: ALEX : 1935 Requested By: BEATRIZ LEDBETTER Order Number: [id number] Reading MD: Measurements Intervals [place] Rate: 65 P: 0 MI: 244 QRS: 7 QRSD: 64 T: 69 QT: 394 QTc: 410 Interpretive Statements SINUS RHYTHM PROLONGED MI INTERVAL LVH WITH REPOLARIZATION ABNORMALITY ABNORMAL ECG RI6.02 No previous ECG available for comparison
[2020-09-16 16:58] LABS: CALCIUM 8.6 mg/dL (8.5-10.1); CREATININE 0.9 mg/dL (0.6-1.0); GFR 59.5; POTASSIUM 4.3 mmol/L (3.5-5.1)
[2020-09-16 17:00] LABS: BILIRUBIN,URINE NEG (NEG); CLARITY,URINE HAZY; COLOR,URINE YELLOW; GLUCOSE,URINE NEG (NEG); NITRITE,URINE NEG (NEG); UROBILINOGEN,URINE 0.2 mg/dL (0.2 mg/dL)
[2020-09-16] MEDS ORDERED: BACITRACIN ZINC TOPICAL OINT PACKET. TP ONE (17:00)
[2020-09-16 17:01] LABS: BACTERIA,URINE FEW /HPF (0-FEW); SQUAMOUS EPITHELIAL CELL,UR OCC /LPF
[2020-09-16 17:04] LABS: ALBUMIN 3.2 g/dL (3.4-5.0); ALBUMIN/GLOBULIN RATIO 0.7 (1.0-1.7); TOTAL BILIRUBIN 0.2 mg/dL (0.2-1.0); TOTAL PROTEIN 7.5 g/dL (6.4-8.2)
[2020-09-16] MEDS ORDERED: IV NORMAL SALINE 500ML 500 ML IV ONE (17:15)
[2020-09-16 18:10] VITALS: BP 151/74
== END 2020-09-16 18:23 | disposition home or self-care (01) ==
LOC: ER 14:46
DX: S01.01XA Laceration without foreign body of scalp, initial encounter (principal); S06.0X0A Concussion without loss of consciousness, initial encounter; N39.0 Urinary tract infection, site not specified; Z23 Encounter for immunization; W18.39XA Other fall on same level, initial encounter; Y93.01 Activity, walking, marching and hiking; Y92.89 Other specified places as the place of occurrence of the external cause; Y99.8 Other external cause status
CPT/HCPCS: 12001; 36415; 70450; 72125; 80053; 80185; 81001; 84484; 85025; 85610; 85730; 87086; 90471; 90715; 93005; 99285; J7040; 87077; 87186

== ENCOUNTER 2020-11-20 14:04 | Emergency (ER) | payer MEDICARE, BC ==
[~2020-11-20] VITALS: Ht 157.5 cm; Wt 50.5 kg
--- NOTE | 2020-11-20 14:53 | RAD ---
EXAM: CT head and cervical spine without contrast INDICATION: Fall on Coumadin COMPARISON: CT head and C-spine 09/16/2020 TECHNIQUE: Axial CT imaging through the head and cervical spine without intravenous contrast. Sagitta l and coronal reformats were obtained. One or more of the following individualized dose reduction techniques were utilized for this examinat ion: 1. Automated exposure control 2. Adjustment of the mA and/or kV according to patient size 3. Use of iterative reconstruction technique. FINDINGS: CT head: No intracranial hemorrhage, acute infarct, or mass lesion. Right occipital encephalomalacia and ex va cuo dilatation of the right lateral ventricle is unchanged. Ventricles and sulci are moderately enlar ged. There is mild periventricular white matter hypoattenuation. The calvarium is intact. Visualized paranasal sinuses and mastoid air cells are clear. Globes and orbits are intact. CT cervical spine: No acute fracture. There is unchanged 1 mm anterolisthesis of C3 on C4 and 2 mm retrolisthesis of C5 on C6, and 2 mm anterolisthesis of C7 on T1. Severe disc space narrowing at C5-C6 with endplate scler osis is unchanged. Milder disc space narrowing elsewhere. Multilevel facet arthrosis and uncovertebra l joint proliferation with up to moderate bilateral foraminal narrowing at C5-C6 is unchanged. There are disc osteophyte complexes resulting in mild canal narrowing at several levels. Prevertebral soft tissues is normal. There are calcific patient in the carotid arteries. IMPRESSION: 1. No acute intracranial abnormality. 2. Unchanged right occipital encephalomalacia. 3. No acute osseous abnormality of the cervical spine. 4. Unchanged degenerative disc disease. Electronically signed by: Snow Shaikh MD (11/20/2020 2:51 PM) [id number]
[2020-11-20 14:57] LABS: BASO # 0.1 x10^3/uL (0.0-0.2); BASO % 1 % (0-3); EOS # 0.4 x10^3/uL (0.0-0.7); EOS % 7 % (0-3); HEMATOCRIT 35.2 % (36.0-47.0); HEMOGLOBIN 11.8 g/dL (12.0-15.5); LYMPH % 16 % (24-48); MEAN CORPUSCULAR HEMOGLOBIN 30 pg (25-35); MEAN CORPUSCULAR HGB CONC 33 g/dL (31-37); MEAN CORPUSCULAR VOLUME 89 fL (79-100); MONO # 0.9 x10^3/uL (0.0-1.1); MONO % 15 % (0-9); NEUT # 3.7 x10^3uL (1.8-7.7); NEUT % 61 % (31-73); PLATELET COUNT 220 x10^3/uL (140-400); RED BLOOD COUNT 3.95 x10^6/uL (3.50-5.40); RED CELL DISTRIBUTION WIDTH 13.8 % (11.5-14.5); WHITE BLOOD COUNT 6.1 x10^3/uL (4.0-11.0)
[2020-11-20 15:19] LABS: CREATININE 0.9 mg/dL (0.6-1.0); GFR 59.5; POTASSIUM 4.3 mmol/L (3.5-5.1)
[2020-11-20 15:21] LABS: ALBUMIN/GLOBULIN RATIO 0.8 (1.0-1.7); TOTAL BILIRUBIN 0.2 mg/dL (0.2-1.0); TOTAL PROTEIN 6.9 g/dL (6.4-8.2)
--- NOTE | 2020-11-20 15:44 | PHYS DOC ---
Past History Past Medical History: CVA, Dementia, Depression, GERD, High Cholesterol, Hypertension, Seizure, Other Additional Past Medical Histor: SIADH; LOW POTASSIUM; MACULAR DEGEN; OSTEOPOROSIS Past Surgical History: Hysterectomy, Tonsillectomy Smoking: Non-smoker Alcohol Use: Sober Drug Use: None General Adult EDM: Chief Complaint: MECHANICAL FALL HPI: HPI: 85-year-old female presents after fall at home. The patient was walking across the kitchen to the table with her lunch when she did not quite get the plate high enough and clipped a chair or the table, which caused her to stumble forward and hit her head on the table. Her face landed in her mashed potatoes. She has a small laceration of the left forehead. Patient feels completely normal. She denies headache. She had no loss of consciousness. She is on Coumadin. Her neurologist, Dr. Quispe requested the family bring her in for CT scan. She has no other complaints at this time. Review of Systems: Review of Systems: Constitutional: Denies fever or chills Eyes: Denies change in visual acuity HENT: Denies nasal congestion or sore throat Respiratory: Denies cough or shortness of breath Cardiovascular: Denies chest pain or edema GI: Denies abdominal pain, nausea, vomiting, bloody stools or diarrhea : Denies dysuria Musculoskeletal: Denies back pain or joint pain Integument: Laceration left forehead Neurologic: Denies headache, focal weakness or sensory changes Endocrine: Denies polyuria or polydipsia Lymphatic: Denies swollen glands Psychiatric: Denies depression or anxiety Allergies: Allergies: Allergies Coded Allergies Type Severity Reaction Last Updated Verified No Known Drug Allergies 01/19/20 No Physical Exam: PE: Constitutional: Well developed, well nourished, no acute distress, non-toxic appearance. [] HENT: Normocephalic, atraumatic, bilateral external ears normal, oropharynx moist, no oral exudates, nose normal. [] Eyes: PERRLA, EOMI, conjunctiva normal, no discharge. [] Neck: Normal range of motion, no tenderness, supple, no stridor. [] Cardiovascular: Heart rate regular rhythm, no murmur [] Lungs & Thorax: Bilateral breath sounds clear to auscultation [] Abdomen: Bowel sounds normal, soft, no tenderness, no masses, no pulsatile masses. [] Skin: 2 cm linear laceration of the left forehead. Superficial abrasion of the left lower leg. [] Back: No tenderness, no CVA tenderness. [] Extremities: No tenderness, no cyanosis, no clubbing, ROM intact, no edema. [] Neurologic: Alert and oriented X 3, normal motor function, normal sensory function, no focal deficits noted. [] Psychologic: Affect normal, judgement normal, mood normal. [] Current Patient Data: Labs: Laboratory Tests Test 11/20/20 14:41 White Blood Count 6.1 x10^3/uL (4.0-11.0) Red Blood Count 3.95 x10^6/uL (3.50-5.40) Hemoglobin 11.8 g/dL (12.0-15.5) L Hematocrit 35.2 % (36.0-47.0) L Mean Corpuscular Volume 89 fL (79-100) Mean Corpuscular Hemoglobin 30 pg (25-35) Mean Corpuscular Hemoglobin Concent 33 g/dL (31-37) Red Cell Distribution Width 13.8 % (11.5-14.5) Platelet Count 220 x10^3/uL (140-400) Neutrophils (%) (Auto) 61 % (31-73) Lymphocytes (%) (Auto) 16 % (24-48) L Monocytes (%) (Auto) 15 % (0-9) H Eosinophils (%) (Auto) 7 % (0-3) H Basophils (%) (Auto) 1 % (0-3) Neutrophils # (Auto) 3.7 x10^3uL (1.8-7.7) Lymphocytes # (Auto) 1.0 x10^3/uL (1.0-4.8) Monocytes # (Auto) 0.9 x10^3/uL (0.0-1.1) Eosinophils # (Auto) 0.4 x10^3/uL (0.0-0.7) Basophils # (Auto) 0.1 x10^3/uL (0.0-0.2) Sodium Level 132 mmol/L (136-145) L Potassium Level 4.3 mmol/L (3.5-5.1) Chloride Level 97 mmol/L (98-107) L Carbon Dioxide Level 28 mmol/L (21-32) Anion Gap 7 (6-14) Blood Urea Nitrogen 21 mg/dL (7-20) H Creatinine 0.9 mg/dL (0.6-1.0) Estimated GFR (Cockcroft-Gault) 59.5 BUN/Creatinine Ratio 23 (6-20) H Glucose Level 106 mg/dL (70-99) H Calcium Level 8.0 mg/dL (8.5-10.1) L Total Bilirubin 0.2 mg/dL (0.2-1.0) Aspartate Amino Transferase (AST) 22 U/L (15-37) Alanine Aminotransferase (ALT) 23 U/L (14-59) Alkaline Phosphatase 147 U/L (46-116) H Total Protein 6.9 g/dL (6.4-8.2) Albumin 3.0 g/dL (3.4-5.0) L Albumin/Globulin Ratio 0.8 (1.0-1.7) L Vital Signs: Vital Signs Date Time Temp Pulse Resp B/P (MAP) Pulse Ox O2 Delivery O2 Flow Rate FiO2 11/20/20 14:20 97.8 64 14 165/65 99 Room Air EKG: EKG: [] Radiology/Procedures: Radiology/Procedures: [] Impressions: EXAM: CT head and cervical spine without contrast INDICATION: Fall on Coumadin COMPARISON: CT head and C-spine 09/16/2020 TECHNIQUE: Axial CT imaging through the head and cervical spine without intravenous contrast. Sagittal and coronal reformats were obtained. One or more of the following individualized dose reduction techniques were utilized for this examination: 1. Automated exposure control 2. Adjustment of the mA and/or kV according to patient size 3. Use of iterative reconstruction technique. FINDINGS: CT head: No intracranial hemorrhage, acute infarct, or mass lesion. Right occipital encephalomalacia and ex vacuo dilatation of the right lateral ventricle is unchanged. Ventricles and sulci are moderately enlarged. There is mild periventricular white matter hypoattenuation. The calvarium is intact. Visualized paranasal sinuses and mastoid air cells are clear. Globes and orbits are intact. CT cervical spine: No acute fracture. There is unchanged 1 mm anterolisthesis of C3 on C4 and 2 mm retrolisthesis of C5 on C6, and 2 mm anterolisthesis of C7 on T1. Severe disc space narrowing at C5-C6 with endplate sclerosis is unchanged. Milder disc space narrowing elsewhere. Multilevel facet arthrosis and uncovertebral joint proliferation with up to moderate bilateral foraminal narrowing at C5-C6 is unchanged. There are disc osteophyte complexes resulting in mild canal narrowing at several levels. Prevertebral soft tissues is normal. There are calcific patient in the carotid arteries. IMPRESSION: 1. No acute intracranial abnormality. 2. Unchanged right occipital encephalomalacia. 3. No acute osseous abnormality of the cervical spine. 4. Unchanged degenerative disc disease. Electronically signed by: Snow Shaikh MD (11/20/2020 2:51 PM) [id number] DICTATED AND SIGNED BY: SNOW SHAIKH MD DATE: 11/20/20 1446 CC: CHRISTY MANCIA DO; OBED PETTIT MD ~MTH0 0 Heart Score: C/O Chest Pain: N/A Risk Factors: Risk Factors: DM, Current or recent (<one month) smoker, HTN, HLP, family history of CAD, obesity. Risk Scores: Score 0 - 3: 2.5% MACE over next 6 weeks - Discharge Home Score 4 - 6: 20.3% MACE over next 6 weeks - Admit for Clinical Observation Score 7 - 10: 72.7% MACE over next 6 weeks - Early Invasive Strategies Course & Med Decision Making: Course & Med Decision Making Pertinent Labs and Imaging studies reviewed. (See chart for details) The patient's head CT is negative for acute findings. The patient is in excellent spirits. I was able to repair her laceration. See note below for more details. The patient lives with other people in the house and does not really want to be admitted. I do believe it is absolutely necessary that she be admitted for observation. She is stable for discharge at this time. [] Dragon Disclaimer: Dragmarisa Disclaimer: This electronic medical record was generated, in whole or in part, using a voice recognition dictation system. Laceration Repair Lac Repair Indication: [] 2 cm linear laceration of the left forehead Procedure: I thoroughly irrigated the patient's wound with normal saline under pressure. There were no foreign bodies found. I repaired the wound with [place] tissue adhesive. There were 2 layers placed over the wound. There was good skin approximation. Bleeding was controlled. No dressing was applied. Total repaired wound length: 2 cm Other Items: [None The patient tolerated the procedure well. Complications: None. Departure Departure: Impression: Primary Impression: Fall from slip, trip, or stumble Qualified Codes: W01.0XXA - Fall on same level from slipping, tripping and stumbling without subsequent striking against object, initial encounter Additional Impression: Laceration of forehead Qualified Codes: S01.81XA - Laceration without foreign body of other part of head, initial encounter Disposition: 01 HOME / SELF CARE / HOMELESS Condition: STABLE Referrals: OBED PETTIT MD (PCP) Patient Instructions: Tissue Adhesive Wound Care, [id number] CHRISTY MANCIA DO Nov 20, 2020 15:44
[2020-11-20 15:48] VITALS: BP 165/66
== END 2020-11-20 15:50 | disposition home or self-care (01) ==
LOC: ER 14:04
DX: S01.81XA Laceration without foreign body of other part of head, initial encounter (principal); S80.812A Abrasion, left lower leg, initial encounter; W01.0XXA Fall on same level from slipping, tripping and stumbling without subsequent striking against object, initial encounter; K21.9 Gastro-esophageal reflux disease without esophagitis; E78.00 Pure hypercholesterolemia, unspecified; I10 Essential (primary) hypertension; Z86.73 Personal history of transient ischemic attack (TIA), and cerebral infarction without residual deficits; Y93.01 Activity, walking, marching and hiking; Y92.89 Other specified places as the place of occurrence of the external cause; Y99.8 Other external cause status
CPT/HCPCS: 12011; 36415; 70450; 72125; 80053; 85025; 99285

== ENCOUNTER 2021-02-13 16:16 | Emergency (ER) | payer MEDICARE, BC ==
[~2021-02-13] VITALS: Ht 157.5 cm; Wt 50.5 kg
[~2021-02-13 16:16] MED LIST changes: +POTA-121 PO; -POTA20TA4 PO
--- NOTE | 2021-02-13 16:26 | PHYS DOC ---
Past History Past Medical History: CVA, Dementia, Depression, GERD, High Cholesterol, Hypertension, Seizure, Other Additional Past Medical Histor: SIADH; LOW POTASSIUM; MACULAR DEGEN; OSTEOPOROSIS (MARGARITA LEYVA APRN) Past Surgical History: Hysterectomy, Tonsillectomy (MARGARITA LEYVA APRN) Smoking: Non-smoker Alcohol Use: Sober Drug Use: None (MARGARITA LEYVA APRN) General Adult EDM: Chief Complaint: MECHANICAL FALL HPI: HPI: Patient is an 85-year-old female who presents to the emergency department for a fall. Patient reports that just prior to arrival she tripped on a crack in the concrete and hit her head. She denies any loss of consciousness. She is on warfarin. She has a history of a CVA. Patient is reporting pain to her head and her right posterior ribs. Patient denies any dizziness, abdominal pain, hip pain, lower extremity pain, upper extremity pain, shortness of breath, head neck or shoulder pain. Patient rates her pain to her ribs 6 out of 10. (MARGARITA LEYVA APRN) Review of Systems: Review of Systems: 14 body systems of the review of systems have been reviewed. See HPI for pertinent positive and negative responses, otherwise all other systems are negative, nonpertinent or noncontributory (MARGARITA LEYVA APRN) Allergies: Allergies: Allergies Coded Allergies Type Severity Reaction Last Updated Verified No Known Drug Allergies 01/19/20 No (MARGARITA LEYVA APRN) Physical Exam: PE: Constitutional: Well developed, well nourished, no acute distress, non-toxic appearance. [] HENT: Normocephalic, bilateral external ears normal, oropharynx moist, no oral exudates, nose normal. [] Eyes: PERRL, EOMI, conjunctiva normal, no discharge. [] Neck: Normal range of motion, no tenderness, supple, no stridor, c-collar in place. [] Cardiovascular:Heart rate regular rhythm, no murmur [] Lungs & Thorax: Bilateral breath sounds clear to auscultation, pain with palpation noted to patient's right posterior lower ribs, no crepitus palpated, no flail chest, no obvious wounds [] Abdomen: Bowel sounds normal, soft, no tenderness, no masses, no pulsatile masses. [] Skin: Warm, dry, no erythema, no rash, 3 cm skin tear noted to patient's left forearm. [] Back: No tenderness, normal range of motion Extremities: No tenderness, no cyanosis, no clubbing, ROM intact, no edema, no shortening or rotation of lower extremities [] Neurologic: Alert and oriented X 3, normal motor function, normal sensory function, no focal deficits noted. [] Psychologic: Affect normal, judgement normal, mood normal. [] (MARGARITA LEYVA APRN) Current Patient Data: Labs: Laboratory Tests Test 02/13/21 16:41 White Blood Count 8.5 x10^3/uL Red Blood Count 4.27 x10^6/uL Hemoglobin 12.7 g/dL Hematocrit 37.5 % Mean Corpuscular Volume 88 fL Mean Corpuscular Hemoglobin 30 pg Mean Corpuscular Hemoglobin Concent 34 g/dL Red Cell Distribution Width 14.4 % Platelet Count 235 x10^3/uL Neutrophils (%) (Auto) 74 % Lymphocytes (%) (Auto) 12 % Monocytes (%) (Auto) 9 % Eosinophils (%) (Auto) 4 % Basophils (%) (Auto) 1 % Neutrophils # (Auto) 6.3 x10^3uL Lymphocytes # (Auto) 1.0 x10^3/uL Monocytes # (Auto) 0.8 x10^3/uL Eosinophils # (Auto) 0.3 x10^3/uL Basophils # (Auto) 0.1 x10^3/uL Prothrombin Time 23.9 SEC Prothromb Time International Ratio 2.3 Activated Partial Thromboplast Time 30 SEC Sodium Level 131 mmol/L Potassium Level 4.7 mmol/L Chloride Level 95 mmol/L Carbon Dioxide Level 31 mmol/L Anion Gap 5 Blood Urea Nitrogen 17 mg/dL Creatinine 0.7 mg/dL Estimated GFR (Cockcroft-Gault) 79.5 BUN/Creatinine Ratio 24 Glucose Level 110 mg/dL Calcium Level 8.8 mg/dL Total Bilirubin 0.3 mg/dL Aspartate Amino Transf (AST/SGOT) 41 U/L Alanine Aminotransferase (ALT/SGPT) 33 U/L Alkaline Phosphatase 146 U/L Total Protein 7.4 g/dL Albumin 3.1 g/dL Albumin/Globulin Ratio 0.7 (MARGARITA LEYVA APRN) EKG: EKG: [] (MARGARITA LEYVA APRN) Radiology/Procedures: Radiology/Procedures: []PROCEDURE: CT HEAD AND CERVICAL SPINE WO CT brain without contrast, CT C-spine without contrast. HISTORY: Fall, laceration posterior right side of head CT scan the brain was done without contrast. A skull fracture is not identified. There is extracranial soft tissue swelling posterior on the right. Sinuses are clear. There is atrophy. There is encephalomalacia of the posterior temporal occipital region on the right from an old CVA. Ventricles are dilated from atrophy. There is no intracranial hemorrhage or subdural hematoma. There is decreased density in the white matter from chronic microvascular changes. P attern has changed little compared to an old study from November. IMPRESSION: 1. 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 2. Chronic white matter changes. 3. Atrophy. 4. No intracranial hemorrhage or definite acute finding. End impression CT cervical spine Axial CT images were obtained through the cervical spine. Sagittal and coronal reconstructed images were reviewed. There are degenerative changes in the cervical spine. There is a central disc protrusion at C2-3. There is spurring at other levels. There is mild spinal stenosis at C5-6 measuring 9 mm. There is facet arthritis at several levels. There is slight retrolisthesis of C5 relative to C6 with spurring. There is foraminal narrowing at C5-6 bilaterally. There is no acute C-spine fracture. There is moderate carotid artery calcification on the left with mild changes on the right. IMPRESSION: 1. Extensive degenerative changes in the cervical spine. 2. No acute C-spine fracture. PQRS Compliance Statement: One or more of the following individualized dose reduction techniques were utilized for this examination: 1. Automated exposure control 2. Adjustment of the mA and/or kV according to patient size 3. Use of iterative reconstruction technique Electronically signed by: Michael Suh MD (02/13/2021 4:56 PM) [facility] DICTATED AND SIGNED BY: MICHAEL SUH MD DATE: 02/13/21 1649 CC: OBED PETTIT MD; MARGARITA LEYVA APRN ~MTH0 0 REASON: POSTERIOR RIGHT SIDED RIB PAIN PROCEDURE: CT CHEST ABDOMEN PELVIS WO Exam: CT of chest, abdomen and pelvis without contrast INDICATION: Posterior right rib pain TECHNIQUE: Sequential axial images through the chest, abdomen and pelvis obtained without IV contrast. Sagittal and coronal reformatted images were reconstructed from the axial data and reviewed. Exposure: One or more of the following in the visualized dose reduction tech niques were utilized for this examination: 1. Automated exposure control 2. Adjustment of the MA and/or KV according to patient size 3. Use of iterative of reconstructive technique Comparisons: 05/09/2018 FINDINGS: Visualized portions of the thyroid are unremarkable. No enlargement is not lymph nodes are identified. Heart size is normal. No pericardial effusion. Moderate coronary artery calcifications. No pericardial effusion. Thoracic aorta has a normal course and caliber. Pulmonary artery is not enlarged. Airways are patent. Strandy opacities dependent portion lungs likely representing atelectasis. No consolidation or pneumothorax. No pleural effusion or thickening. Evaluation of solid abdominal organs is limited secondary to noncontrast technique. Liver, spleen, pancreas, gallbladder and adrenals are unremarkable. No perinephric inflammation or hydronephrosis. Bilateral nonobstructing renal calculi are noted. No ureteral calculi are seen. Bladder is decompressed not well evaluated. Uterus is absent. No abnormal adnexal mass. Diverticulosis noted at the descending and sigmoid colon without evidence of acute diverticulitis. Appendix is not identified. Small bowel is unremarkable. No free intra-abdominal air or fluid. No obstruction. There is a moderate-sized hiatal hernia. Abdominal aorta has normal course and caliber. No enlarged intra-abdominal lymph nodes are identified. Mildly displaced posterior right fifth, sixth and seventh eighth, ninth and 10th rib fractures are noted. There is a compression fracture involving the superior endplate of T11 with less than 25% height loss. Additionally there is a compression fracture involving the T5 and T7 vertebral body with anterior wedging. IMPRESSION: 1. Mildly displaced posterior right fifth through 10th rib fractures. No pneumothorax 2. Compression fractures involving the T5, T7 and T11 vertebral bodies which are age indeterminant. Correlate with point tenderness 3. No sequela of acute traumatic injury identified within the abdomen or pelvis. 4. Diverticulosis without evidence of acute diverticulitis. Electronically signed by: Rakel Ghosh MD (02/13/2021 4:53 PM) [facility] DICTATED AND SIGNED BY: RAKEL GHOSH MD DATE: 02/13/21 1642 CC: OBED PETTIT MD; MARGARITA LEYVA RN FORENSIC ~MTH0 0 (MARGARITA LEYVA RN FORENSIC) Heart Score: C/O Chest Pain: No Risk Factors: Risk Factors: DM, Current or recent (<one month) smoker, HTN, HLP, family history of CAD, obesity. Risk Scores: Score 0 - 3: 2.5% MACE over next 6 weeks - Discharge Home Score 4 - 6: 20.3% MACE over next 6 weeks - Admit for Clinical Observation Score 7 - 10: 72.7% MACE over next 6 weeks - Early Invasive Strategies (MARGARITA LEYVA APRN) Course & Med Decision Making: Course & Med Decision Making Pertinent Labs and Imaging studies reviewed. (See chart for details) Presents to the emergency department following a fall. She states that she did hit her head but did not lose consciousness. She is on warfarin. Work-up in the ER consisted of CT scan of head and neck, chest abdomen and pelvis as she is complaining of right posterior rib pain. Patient has a skin tear noted to her left forearm that was dressed. Patient is currently in a c-collar and is maintained in the ER. Blood work was performed in the ER. CT head and neck negative for acute findings-c collar cleared.Tetanus UTD. bleeding noted to scalp, wound cleansed in ER. I assessed the wound and there is no laceration that can be stured/stapled, dressing placed. Patient was noted to have R. 5-10 rib fractures, compression throacic fracures of undeterminate ages, will transfer to [facility]. I spoke to Dr. Anderson at [facility] trauma surgery who agreed to see the patient in the ER at [facility]. I spoke to Dr. Farrell who agreed to admit the patient at [facility] under his services. Advised to hold coumadin per Dr. Farrell. INR 2.3. Patient appears to be in a position of comfort and has no complaints at this time. I to the ER physician at [facility] and discussed patient's case. Will transfer the patient via EMS to [facility]. (MARGARITA LEYVA APRN) Dragon Disclaimer: Dragmarisa Disclaimer: This electronic medical record was generated, in whole or in part, using a voice recognition dictation system. (MARGARITA LEYVA APRN) Departure Departure: Impression: Primary Impression: Fall Qualified Codes: W19.XXXA - Unspecified fall, initial encounter Additional Impression: Rib fracture Qualified Codes: S22.41XA - Multiple fractures of ribs, right side, initial encounter for closed fracture Disposition: 02 SHORT TERM HOSPITAL Admitting Physician: Asad Farrell (MARGARITA LEYVA APRN) Condition: STABLE Referrals: OBED PETTIT MD (PCP) Attending Signature Attending Signature I have reviewed the PA/MANAGER MANAGED CARE's note and plan of care. I was available for c onsultation as needed during the patient's visit in the emergency department. I agree with the clinical impression, plan, and disposition. (BEATRIZ YI DO) MARGARITA LEYVA APRN Feb 13, 2021 16:25 BEATRIZ YI DO Feb 14, 2021 01:36
[2021-02-13 16:55] LABS: BASO # 0.1 x10^3/uL (0.0-0.2); BASO % 1 % (0-3); EOS # 0.3 x10^3/uL (0.0-0.7); EOS % 4 % (0-3); HEMATOCRIT 37.5 % (36.0-47.0); HEMOGLOBIN 12.7 g/dL (12.0-15.5); LYMPH % 12 % (24-48); MEAN CORPUSCULAR HEMOGLOBIN 30 pg (25-35); MEAN CORPUSCULAR HGB CONC 34 g/dL (31-37); MEAN CORPUSCULAR VOLUME 88 fL (79-100); MONO # 0.8 x10^3/uL (0.0-1.1); MONO % 9 % (0-9); NEUT # 6.3 x10^3uL (1.8-7.7); NEUT % 74 % (31-73); PLATELET COUNT 235 x10^3/uL (140-400); RED BLOOD COUNT 4.27 x10^6/uL (3.50-5.40); RED CELL DISTRIBUTION WIDTH 14.4 % (11.5-14.5); WHITE BLOOD COUNT 8.5 x10^3/uL (4.0-11.0)
--- NOTE | 2021-02-13 16:55 | RAD ---
Exam: CT of chest, abdomen and pelvis without contrast INDICATION: Posterior right rib pain TECHNIQUE: Sequential axial images through the chest, abdomen and pelvis obtained without IV contrast . Sagittal and coronal reformatted images were reconstructed from the axial data and reviewed. Exposure: One or more of the following in the visualized dose reduction techniques were utilized for this examination: 1. Automated exposure control 2. Adjustment of the MA and/or KV according to patient size 3. Use of iterative of reconstructive technique Comparisons: 05/09/2018 FINDINGS: Visualized portions of the thyroid are unremarkable. No enlargement is not lymph nodes are identified . Heart size is normal. No pericardial effusion. Moderate coronary artery calcifications. No pericardia l effusion. Thoracic aorta has a normal course and caliber. Pulmonary artery is not enlarged. Airways are patent. Strandy opacities dependent portion lungs likely representing atelectasis. No con solidation or pneumothorax. No pleural effusion or thickening. Evaluation of solid abdominal organs is limited secondary to noncontrast technique. Liver, spleen, pancreas, gallbladder and adrenals are unremarkable. No perinephric inflammation or hydronephrosis. Bilateral nonobstructing renal calculi are noted. No u reteral calculi are seen. Bladder is decompressed not well evaluated. Uterus is absent. No abnormal adnexal mass. Diverticulosis noted at the descending and sigmoid colon without evidence of acute diverticulitis. Ap pendix is not identified. Small bowel is unremarkable. No free intra-abdominal air or fluid. No obstr uction. There is a moderate-sized hiatal hernia. Abdominal aorta has normal course and caliber. No enlarged intra-abdominal lymph nodes are identified. Mildly displaced posterior right fifth, sixth and seventh eighth, ninth and 10th rib fractures are no alber. There is a compression fracture involving the superior endplate of T11 with less than 25% height loss. Additionally there is a compression fracture involving the T5 and T7 vertebral body with anter ior wedging. IMPRESSION: 1. Mildly displaced posterior right fifth through 10th rib fractures. No pneumothorax 2. Compression fractures involving the T5, T7 and T11 vertebral bodies which are age indeterminant. Correlate with point tenderness 3. No sequela of acute traumatic injury identified within the abdomen or pelvis. 4. Diverticulosis without evidence of acute diverticulitis. Electronically signed by: Rakel Torre MD (02/13/2021 4:53 PM) [facility]
--- NOTE | 2021-02-13 16:59 | RAD ---
CT brain without contrast, CT C-spine without contrast. HISTORY: Fall, laceration posterior right side of head CT scan the brain was done without contrast. A skull fracture is not identified. There is extracrania l soft tissue swelling posterior on the right. Sinuses are clear. There is atrophy. There is encephal omalacia of the posterior temporal occipital region on the right from an old CVA. Ventricles are dila alber from atrophy. There is no intracranial hemorrhage or subdural hematoma. There is decreased densit y in the white matter from chronic microvascular changes. Pattern has changed little compared to an o ld study from November. IMPRESSION: 1. 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 2. Chronic white matter changes. 3. Atrophy. 4. No intracranial hemorrhage or definite acute finding. End impression CT cervical spine Axial CT images were obtained through the cervical spine. Sagittal and coronal reconstructed images w ere reviewed. There are degenerative changes in the cervical spine. There is a central disc protrusio n at C2-3. There is spurring at other levels. There is mild spinal stenosis at C5-6 measuring 9 mm. T here is facet arthritis at several levels. There is slight retrolisthesis of C5 relative to C6 with s purring. There is foraminal narrowing at C5-6 bilaterally. There is no acute C-spine fracture. There is moderate carotid artery calcification on the left with mild changes on the right. IMPRESSION: 1. Extensive degenerative changes in the cervical spine. 2. No acute C-spine fracture. PQRS Compliance Statement: One or more of the following individualized dose reduction techniques were utilized for this examinat ion: 1. Automated exposure control 2. Adjustment of the mA and/or kV according to patient size 3. Use of iterative reconstruction technique Electronically signed by: Michael Suh MD (02/13/2021 4:56 PM) [facility]
[2021-02-13 17:16] LABS: CALCIUM 8.8 mg/dL (8.5-10.1); CREATININE 0.7 mg/dL (0.6-1.0); GFR 79.5; POTASSIUM 4.7 mmol/L (3.5-5.1)
[2021-02-13 17:22] LABS: ALBUMIN 3.1 g/dL (3.4-5.0); ALBUMIN/GLOBULIN RATIO 0.7 (1.0-1.7); TOTAL BILIRUBIN 0.3 mg/dL (0.2-1.0); TOTAL PROTEIN 7.4 g/dL (6.4-8.2)
[2021-02-13 18:22] VITALS: BP 182/69
== END 2021-02-13 19:17 | disposition short-term general hospital (02) ==
LOC: ER 16:16
DX: S22.41XA Multiple fractures of ribs, right side, initial encounter for closed fracture (principal); S51.812A Laceration without foreign body of left forearm, initial encounter; F03.90 Unspecified dementia, unspecified severity, without behavioral disturbance, psychotic disturbance, mood disturbance, and anxiety; K21.9 Gastro-esophageal reflux disease without esophagitis; E78.00 Pure hypercholesterolemia, unspecified; I10 Essential (primary) hypertension; Z86.73 Personal history of transient ischemic attack (TIA), and cerebral infarction without residual deficits; W18.09XA Striking against other object with subsequent fall, initial encounter; Y93.89 Activity, other specified; Y92.89 Other specified places as the place of occurrence of the external cause; Y99.8 Other external cause status
CPT/HCPCS: 36415; 70450; 71250; 72125; 74176; 80053; 85025; 85610; 85730; 96374; 99285; J3010

== ENCOUNTER 2021-03-09 03:35 | Emergency (ER) | payer MEDICARE, BC ==
[~2021-03-09] VITALS: Ht 157.5 cm; Wt 50.5 kg
[2021-03-09 03:35] VITALS: BP 144/50
[~2021-03-09 03:35] MED LIST changes: +POTA-112 PO; -POTA10TA5 PO
--- NOTE | 2021-03-09 04:09 | PHYS DOC ---
Past History Past Medical History: CVA, Dementia, Depression, GERD, High Cholesterol, Hypertension, Seizure, Other Additional Past Medical Histor: SIADH; LOW POTASSIUM; MACULAR DEGEN; OSTEOPOROSIS Past Surgical History: Hysterectomy, Tonsillectomy Smoking: Non-smoker Alcohol Use: Sober Drug Use: None General Adult EDM: Chief Complaint: syncope HPI: HPI: 85-year-old female presents after syncopal episode at her rehab facility. The patient was on the toilet bearing down when she had a syncopal episode. This was reported to be witnessed by her care staff. She did not she stated any injuries from this event. She denies any head or neck pain. She does not remember the syncopal event. The patient is alert and oriented at baseline. She was sent to the rehab facility after a fall at home. No reported fever. Patient denies any other specific complaints. Review of Systems: Review of Systems: Constitutional: Denies fever or chills Eyes: Denies change in visual acuity HENT: Denies nasal congestion or sore throat Respiratory: Denies cough or shortness of breath Cardiovascular: Denies chest pain or edema GI: Denies abdominal pain, nausea, vomiting, bloody stools or diarrhea : Denies dysuria Musculoskeletal: Denies back pain or joint pain Integument: Denies rash Neurologic: Syncope. Denies headache, focal weakness or sensory changes Endocrine: Denies polyuria or polydipsia Lymphatic: Denies swollen glands Psychiatric: Denies depression or anxiety Allergies: Allergies: Allergies Coded Allergies Type Severity Reaction Last Updated Verified No Known Drug Allergies 01/19/20 No Physical Exam: PE: Constitutional: Well developed, well nourished, no acute distress, non-toxic appearance. [] HENT: Normocephalic, atraumatic, bilateral external ears normal, oropharynx moist, no oral exudates, nose normal. [] Eyes: PERRLA, EOMI, conjunctiva normal, no discharge. [] Neck: Normal range of motion, no tenderness, supple, no stridor. [] Cardiovascular: Heart rate 66, irregular rhythm, no murmur [] Lungs & Thorax: Bilateral breath sounds clear to auscultation [] Abdomen: Bowel sounds normal, soft, no tenderness, no masses, no pulsatile masses. [] Skin: Warm, dry, no erythema, no rash. [] Back: No tenderness, no CVA tenderness. [] Extremities: No tenderness, no cyanosis, no clubbing, ROM intact, no edema. [] Neurologic: Alert and oriented X 3, normal motor function, normal sensory function, no focal deficits noted. [] Psychologic: Affect normal, judgement normal, mood normal. [] EKG: EKG: Irregular rhythm, rate 66, normal axis, no ST elevation or depression, A. fib. Lots of artifacts. [] Radiology/Procedures: Radiology/Procedures: [] Impressions: PQRS Compliance Statement: One or more of the following individualized dose reduction techniques were utilized for this examination: 1. Automated exposure control 2. Adjustment of the mA and/or kV according to patient size 3. Use of iterative reconstruction technique CT head without contrast 03/09/2021 4:12 AM INDICATION: Syncope COMPARISON: CT head and cervical spine 02/13/2021 TECHNIQUE: Multiple axial CT images of the head were obtained from skull base through the vertex without intravenous contrast. FINDINGS: Head: Ventricles, sulci and basal cisterns are prominent compatible with moderate generalized cerebral volume loss. Remote ischemic changes identified within the medial right occipital lobe. Low-attenuation in the periventricular white matter is suggestive of chronic small vessel ischemic changes. There is no hydrocephalus. Lin-white matter differentiation is normal. There is no acute intracranial hemorrhage. There is no mass, mass effect or midline shift. Remote lacunar infarct identified in the inferior medial left cerebellum. There is a small retrocerebellar cyst. There is expected dilatation of the temporal horn of the right lateral ventricle and occipital horn of the right lateral ventricle. Visualized portions of the orbits are normal with exception of bilateral lens replacement. Paranasal sinuses are well aerated. Mastoid air cells are well aerated. Scalp and calvaria are normal. IMPRESSION: No acute intracranial hemorrhage. Low-attenuation in the periventricular white matter is suggestive of chronic small vessel ischemic changes. Moderate generalized cerebral volume loss. Findings are stable. Remote ischemic changes in the right occipital lobe and inferior left cerebellum. Electronically signed by: Drea Berry MD (03/09/2021 5:14 AM) [facility] DICTATED AND SIGNED BY: DREA BERRY MD DATE: 03/09/21 0510 CC: CHRISTY MANCIA DO; OBED PETTIT MD ~MTH0 0 XR CHEST 1V 03/09/2021 4:12 AM INDICATION: Syncope COMPARISON: 09/10/2018 TECHNIQUE: Portable frontal view of the chest is provided. FINDINGS: The cardiomediastinal silhouette is within normal limits. Lungs are clear. There are no significant pleural effusions. There is no pulmonary vascular congestion. No pneumothorax. No suspicious osseous abnormality. IMPRESSION: There is no acute cardiopulmonary process. Electronically signed by: Drea Berry MD (03/09/2021 5:15 AM) [facility] DICTATED AND SIGNED BY: DREA BERRY MD DATE: 03/09/21513 CC: CHRISTY MANCIA DO; OBED PETTIT MD ~MTH0 0 Heart Score: C/O Chest Pain: N/A Risk Factors: Risk Factors: DM, Current or recent (<one month) smoker, HTN, HLP, family history of CAD, obesity. Risk Scores: Score 0 - 3: 2.5% MACE over next 6 weeks - Discharge Home Score 4 - 6: 20.3% MACE over next 6 weeks - Admit for Clinical Observation Score 7 - 10: 72.7% MACE over next 6 weeks - Early Invasive Strategies Course & Med Decision Making: Course & Med Decision Making Pertinent Labs and Imaging studies reviewed. (See chart for details) The patient's EKG is negative for acute findings. Her chest x-ray and head CT are negative for acute findings. Labs are unremarkable except for elevated alk phos. urinalysis is negative for infection. The patient's phenytoin level is less than 0.5. I question whether or not the patient has been getting Dilantin at the care facility. The patient's INR is 3.6. The patient does not have any admissible criteria. She is stable to return to her care facility. Family is present and has been updated on her labs and results. [] Dragon Disclaimer: Dragon Disclaimer: This electronic medical record was generated, in whole or in part, using a voice recognition dictation system. Departure Departure: Impression: Primary Impression: Syncope Qualified Codes: R55 - Syncope and collapse Disposition: HOME / SELF CARE / HOMELESS Condition: STABLE Referrals: OBED PETTIT MD (PCP) Patient Instructions: Syncope, [id number] CHRISTY MANCIA DO Mar 09, 2021 04:09
--- NOTE | 2021-03-09 04:47 | EKG ---
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
[2021-03-09 04:51] LABS: BASO # 0.1 x10^3/uL (0.0-0.2); BASO % 1 % (0-3); EOS # 0.2 x10^3/uL (0.0-0.7); EOS % 4 % (0-3); HEMATOCRIT 41.1 % (36.0-47.0); HEMOGLOBIN 13.6 g/dL (12.0-15.5); LYMPH # 0.8 x10^3/uL (1.0-4.8); LYMPH % 12 % (24-48); MEAN CORPUSCULAR HEMOGLOBIN 29 pg (25-35); MEAN CORPUSCULAR HGB CONC 33 g/dL (31-37); MEAN CORPUSCULAR VOLUME 87 fL (79-100); MONO # 0.5 x10^3/uL (0.0-1.1); MONO % 8 % (0-9); NEUT # 4.6 x10^3uL (1.8-7.7); NEUT % 74 % (31-73); PLATELET COUNT 256 x10^3/uL (140-400); RED BLOOD COUNT 4.71 x10^6/uL (3.50-5.40); RED CELL DISTRIBUTION WIDTH 14.1 % (11.5-14.5); WHITE BLOOD COUNT 6.3 x10^3/uL (4.0-11.0)
[2021-03-09 05:01] LABS: CALCIUM 8.5 mg/dL (8.5-10.1); CREATININE 1.2 mg/dL (0.6-1.0); GFR 42.7; POTASSIUM 3.9 mmol/L (3.5-5.1)
[2021-03-09 05:06] LABS: CLARITY,URINE CLEAR
[2021-03-09 05:07] LABS: ALBUMIN/GLOBULIN RATIO 0.8 (1.0-1.7); TOTAL BILIRUBIN 0.4 mg/dL (0.2-1.0)
[2021-03-09 05:07] LABS: BACTERIA,URINE FEW /HPF (0-FEW); BILIRUBIN,URINE NEG (NEG); COLOR,URINE YELLOW; GLUCOSE,URINE NEG (NEG); HYALINE CASTS, URINE OCC /HPF; NITRITE,URINE NEG (NEG); SQUAMOUS EPITHELIAL CELL,UR FEW /LPF; UROBILINOGEN,URINE 0.2 mg/dL (0.2 mg/dL)
[2021-03-09 05:08] LABS: PHENY < 0.5 mcg/mL (10.0-20.0)
--- NOTE | 2021-03-09 05:17 | RAD ---
XR CHEST 1V 03/09/2021 4:12 AM INDICATION: Syncope COMPARISON: 09/10/2018 TECHNIQUE: Portable frontal view of the chest is provided. FINDINGS: The cardiomediastinal silhouette is within normal limits. Lungs are clear. There are no significant pleural effusions. There is no pulmonary vascular congestion. No pneumothora x. No suspicious osseous abnormality. IMPRESSION: There is no acute cardiopulmonary process. Electronically signed by: Akila Menon MD (03/09/2021 5:15 AM) [facility]
--- NOTE | 2021-03-09 05:17 | RAD ---
RS Compliance Statement: One or more of the following individualized dose reduction techniques were utilized for this examinat ion: 1. Automated exposure control 2. Adjustment of the mA and/or kV according to patient size 3. Use of iterative reconstruction technique CT head without contrast 03/09/2021 4:12 AM INDICATION: Syncope COMPARISON: CT head and cervical spine 02/13/2021 TECHNIQUE: Multiple axial CT images of the head were obtained from skull base through the vertex with out intravenous contrast. FINDINGS: Head: Ventricles, sulci and basal cisterns are prominent compatible with moderate generalized cerebral volu me loss. Remote ischemic changes identified within the medial right occipital lobe. Low-attenuation i n the periventricular white matter is suggestive of chronic small vessel ischemic changes. There is n o hydrocephalus. Lin-white matter differentiation is normal. There is no acute intracranial hemorrha ge. There is no mass, mass effect or midline shift. Remote lacunar infarct identified in the inferior medial left cerebellum. There is a small retrocerebellar cyst. There is expected dilatation of the t emporal horn of the right lateral ventricle and occipital horn of the right lateral ventricle. Visualized portions of the orbits are normal with exception of bilateral lens replacement. Paranasal sinuses are well aerated. Mastoid air cells are well aerated. Scalp and calvaria are normal. IMPRESSION: No acute intracranial hemorrhage. Low-attenuation in the periventricular white matter is suggestive o f chronic small vessel ischemic changes. Moderate generalized cerebral volume loss. Findings are stab le. Remote ischemic changes in the right occipital lobe and inferior left cerebellum. Electronically signed by: Akila Menon MD (03/09/2021 5:14 AM) [facility]
== END 2021-03-09 06:32 | disposition home or self-care (01) ==
LOC: ER 03:35
DX: R55 Syncope and collapse (principal); K21.9 Gastro-esophageal reflux disease without esophagitis; E78.5 Hyperlipidemia, unspecified; I10 Essential (primary) hypertension; Z90.710 Acquired absence of both cervix and uterus; Z86.73 Personal history of transient ischemic attack (TIA), and cerebral infarction without residual deficits
CPT/HCPCS: 36415; 70450; 71045; 80053; 80185; 81001; 84484; 85025; 85610; 85730; 93005; 99285-25

== ENCOUNTER 2021-05-10 14:30 | Inpatient (IN) | payer MEDICARE, BC ==
[~2021-05-10] VITALS: Ht 157.5 cm; Wt 46.8 kg
--- NOTE | 2021-05-10 14:40 | PHYS DOC ---
Past History Past Medical History: CVA, Dementia, Depression, GERD, High Cholesterol, Hypertension, Seizure, Other Additional Past Medical Histor: SIADH; LOW POTASSIUM; MACULAR DEGEN; OSTEOPOROSIS Past Surgical History: Hysterectomy, Tonsillectomy Smoking: Non-smoker Alcohol Use: None Drug Use: None Adult General Chief Complaint Chief Complaint: WEAKNESS/GENERALIZED HPI HPI Patient is a 58-year-old female presenting via EMS for failure to thrive. Reports made by family members and whom patient lives with state that patient is not been eating or drinking for past 2 to 3 days which is not her normal. She has been at baseline health besides recent episode of COVID-19 infection diagnosed 2.5 weeks ago. She has otherwise had no change in medications, trauma, exposure, sick contact, recent travel or other exacerbating factors. On arrival, patient has no complaints, she does not know why she is not been eating or drinking and states that she thought she has been doing well for herself. Denies any SI/HI or depressed mood recently, states she has good family support as she lives with and has numerous family members live across the street Review of Systems Review of Systems Fourteen body systems of review of systems have been reviewed. See HPI for pertinent positives and negative responses, other robles all other systems are negative, non-pertinent or non-contributory Allergies Allergies Allergies Coded Allergies Type Severity Reaction Last Updated Verified No Known Drug Allergies 01/19/20 No Physical Exam Physical Exam Constitutional: Well developed, malnourished and appears frail and thin, no acute distress, non-toxic appearance. HENT: Normocephalic, atraumatic, bilateral external ears normal, oropharynx moist, no oral exudates, nose normal. Dentures in place Eyes: PERRLA, EOMI, conjunctiva normal, no discharge. Neck: Normal range of motion, no tenderness, supple, no stridor. Cardiovascular: Heart rate regular, irregular rhythm, no murmurs rubs or gallops Lungs & Thorax: Bilateral breath sounds clear to auscultation Abdomen: Bowel sounds normal, soft, no tenderness, no masses, no pulsatile masses. Nonsurgical abdomen, no peritoneal signs Skin: Warm, dry, no erythema, no rash. Back: No tenderness, no CVA tenderness. Extremities: No tenderness, no cyanosis, no clubbing, ROM intact, no edema. Neurologic: Alert and oriented X 3, grossly normal motor & sensory function, no focal deficits noted. Psychologic: Flat affect, depressed mood Current Patient Data Vital Signs Vital Signs Date Time Temp Pulse Resp B/P (MAP) Pulse Ox O2 Delivery O2 Flow Rate FiO2 05/10/21 14:32 97.8 58 16 163/77 (105) 98 Lab Results Laboratory Tests Test 05/10/21 15:08 White Blood Count 4.5 x10^3/uL Red Blood Count 4.41 x10^6/uL Hemoglobin 12.8 g/dL Hematocrit 38.4 % Mean Corpuscular Volume 87 fL Mean Corpuscular Hemoglobin 29 pg Mean Corpuscular Hemoglobin Concent 33 g/dL Red Cell Distribution Width 14.2 % Platelet Count 200 x10^3/uL Neutrophils (%) (Auto) 63 % Lymphocytes (%) (Auto) 23 % Monocytes (%) (Auto) 12 % Eosinophils (%) (Auto) 2 % Basophils (%) (Auto) 1 % Neutrophils # (Auto) 2.8 x10^3uL Lymphocytes # (Auto) 1.1 x10^3/uL Monocytes # (Auto) 0.5 x10^3/uL Eosinophils # (Auto) 0.1 x10^3/uL Basophils # (Auto) 0.0 x10^3/uL Sodium Level 139 mmol/L Potassium Level 3.2 mmol/L Chloride Level 101 mmol/L Carbon Dioxide Level 27 mmol/L Anion Gap 11 Blood Urea Nitrogen 27 mg/dL Creatinine 1.3 mg/dL Estimated GFR (Cockcroft-Gault) 38.9 Glucose Level 80 mg/dL Calcium Level 8.7 mg/dL Phosphorus Level 4.2 mg/dL Magnesium Level 2.2 mg/dL Troponin I High Sensitivity 17 ng/L EKG EKG EKG ordered and interpreted by myself 1505 hrs. is sinus bradycardia at 56 bpm, prolonged LA interval at 218 and QTC at 491 otherwise unremarkable intervals, left axis deviation, no obvious ischemic findings, no STEMI Radiology/Procedures Radiology/Procedures XR CHEST 1V History: Reason: fatigue / Spl. Instructions: / History: Comparison: March 09, [address] February 13, 2021 Findings: Hyperinflation. Minimal left pleural effusion. Subacute right-sided rib fractures. Glenohumeral DJD, left greater than right. No pneumothorax. Unchanged heart size. Mild ill-defined bibasilar opacities. Impression: 1. Mild ill-defined bibasilar opacities, may represent atelectasis or developing infiltrates. 2. Small left pleural effusion. 3. Subacute right-sided rib fractures. Electronically signed by: Idris Zuniga DO (05/10/2021 3:03 PM) [facility] Heart Score C/O Chest Pain: No HEART Score for Chest Pain: HEART Score for Chest Pain Response (Comments) Value History Slighlty/Non-Suspicious 0 ECG Nonspecific Repolarizatio 1 Age > 65 2 Risk Factors >3 Risk Factors or Hx CAD 2 Troponin < Normal Limit 0 Total 5 Risk Factors: Risk Factors: DM, Current or recent (<one month) smoker, HTN, HLP, family history of CAD, obesity. Risk Scores: Risk Factors: DM, Current or recent (<one month) smoker, HTN, HLP, family history of CAD, obesity. Course & Med Decision Making Course & Med Decision Making ABCs unremarkable HPI, physical exam and comprehensive ER work-up nonconcerning for any emergent or surgical issues Patient accompanied by DPGLORIA, patient's niece. She confirms presenting issues and concern that patient is requiring higher level of care than usual without any change in baseline health, trauma etc. I reviewed entirety of ER findings that were grossly nonconcerning besides slight hypokalemia and elevated creatinine, likely dehydration and electrolyte disturbances from poor p.o. intake. Plan for IV fluid rehydration and electrolyte correction I discussed patient's failure to thrive is likely multifactorial. She has history of depression, she has dementia, she is on numerous medications. Patient lives at home with and he cannot provide total care. DPGLORIA has been living with patient past few days to provide 24/7 care but states that she cannot keep up with the level of care patient is requiring. Patient unable to safely ambulate and care for self at home. Does not have regular care at home to assist through personal deficits. Joint decision made to admit for further inpatient medical management, further evaluation and exploration for inpatient placement. Of note, DPOA request that patient be changed to a DNR CODE STATUS. She reports she has follow-up with primary care physician who is also excepting hospitalist in 1 week time to review this but reports she would like her to be a DNR effective immediately with plans to sign formal paperwork on admission Nikolai Disclaimer Dragon Disclaimer This electronic medical record was generated, in whole or in part, using a voice recognition dictation system. Departure Departure: Impression: Primary Impression: Failure to thrive Additional Impressions: Persistent fatigue after COVID-19 At high risk for malnutrition Disposition: 09 ADMITTED INPATIENT Admitting Physician: Obed Palumbo Condition: STABLE Referrals: OBED PALUMBO MD (PCP) Problem Qualifiers HORTENCIAHENRY May 10, 2021 14:40
--- NOTE | 2021-05-10 15:05 | RAD ---
XR CHEST 1V History: Reason: fatigue / Spl. Instructions: / History: Comparison: March 09, [address] February 13, 2021 Findings: Hyperinflation. Minimal left pleural effusion. Subacute right-sided rib fractures. Glenohumeral DJD, left greater than right. No pneumothorax. Unchanged heart size. Mild ill-defined bibasilar opacities. Impression: 1. Mild ill-defined bibasilar opacities, may represent atelectasis or developing infiltrates. 2. Small left pleural effusion. 3. Subacute right-sided rib fractures. Electronically signed by: Idris Zuniga DO (05/10/2021 3:03 PM) [facility]
[2021-05-10 15:40] LABS: BASO % 1 % (0-3); EOS # 0.1 x10^3/uL (0.0-0.7); EOS % 2 % (0-3); HEMATOCRIT 38.4 % (36.0-47.0); HEMOGLOBIN 12.8 g/dL (12.0-15.5); LYMPH # 1.1 x10^3/uL (1.0-4.8); LYMPH % 23 % (24-48); MEAN CORPUSCULAR HEMOGLOBIN 29 pg (25-35); MEAN CORPUSCULAR HGB CONC 33 g/dL (31-37); MEAN CORPUSCULAR VOLUME 87 fL (79-100); MONO # 0.5 x10^3/uL (0.0-1.1); MONO % 12 % (0-9); NEUT # 2.8 x10^3uL (1.8-7.7); NEUT % 63 % (31-73); PLATELET COUNT 200 x10^3/uL (140-400); RED BLOOD COUNT 4.41 x10^6/uL (3.50-5.40); RED CELL DISTRIBUTION WIDTH 14.2 % (11.5-14.5); WHITE BLOOD COUNT 4.5 x10^3/uL (4.0-11.0)
[2021-05-10 15:51] LABS: CALCIUM 8.7 mg/dL (8.5-10.1); CREATININE 1.3 mg/dL (0.6-1.0); GFR 38.9; POTASSIUM 3.2 mmol/L (3.5-5.1)
[2021-05-10 15:55] LABS: MAGNESIUM 2.2 mg/dL (1.8-2.4); PHOSPHORUS 4.2 mg/dL (2.6-4.7)
--- NOTE | 2021-05-10 16:08 | EKG ---
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
[2021-05-10] MEDS ORDERED: ACETAMINOPHEN 325 MG TABLET PO PRN (16:30)
[2021-05-10] MEDS ORDERED: NITROGLYCERIN SUBLINGUAL 0.4 MG BOTTLE OF 25. SL PRN (16:30)
[2021-05-10] MEDS ORDERED: POTASSIUM CL 40MEQ IN 0.9%NACL 1,000 ML IV ONE (16:30)
[2021-05-10 19:51] VITALS: BP 178/65
[2021-05-10] MEDS ORDERED: PATCH REMOVAL. MC SCH (21:00)
[2021-05-10] MEDS ORDERED: ONDANSETRON ODT 4 MG TAB.RAPDIS PO PRN (21:15)
[2021-05-10] MEDS ORDERED: AFLIBERCEPT IO SCH (21:15)
[2021-05-10] MEDS ORDERED: AZITHROMYCIN 250 MG in IV NORMAL SALINE 250ML 250 ML IV SCH (22:00)
[2021-05-10] MEDS ORDERED: LEVE500T56 PO (22:36)
[2021-05-10] MEDS: AZITHROMYCIN 500 MG in IV NORMAL SALINE 250ML 250 ML IV SCH (22:48)
[2021-05-11 00:33] VITALS: BP 173/68
[2021-05-11 05:47] VITALS: BP 193/61
[2021-05-11 06:12] LABS: BASO % 0 % (0-3); EOS # 0.1 x10^3/uL (0.0-0.7); EOS % 2 % (0-3); HEMATOCRIT 34.1 % (36.0-47.0); HEMOGLOBIN 11.4 g/dL (12.0-15.5); LYMPH # 0.9 x10^3/uL (1.0-4.8); LYMPH % 19 % (24-48); MEAN CORPUSCULAR HEMOGLOBIN 29 pg (25-35); MEAN CORPUSCULAR HGB CONC 33 g/dL (31-37); MEAN CORPUSCULAR VOLUME 88 fL (79-100); MONO # 0.5 x10^3/uL (0.0-1.1); MONO % 11 % (0-9); NEUT % 67 % (31-73); PLATELET COUNT 182 x10^3/uL (140-400); RED BLOOD COUNT 3.89 x10^6/uL (3.50-5.40); RED CELL DISTRIBUTION WIDTH 14.4 % (11.5-14.5); WHITE BLOOD COUNT 4.5 x10^3/uL (4.0-11.0)
[2021-05-11 06:21] LABS: CALCIUM 7.5 mg/dL (8.5-10.1); CREATININE 1.2 mg/dL (0.6-1.0); GFR 42.7; POTASSIUM 3.8 mmol/L (3.5-5.1)
[2021-05-11] MEDS: FOLIC ACID 1 MG TABLET PO SCH (07:39)
[2021-05-11] MEDS: NYSTATIN TOPICAL POWDER 15GM BOTTLE. TP SCH ×2 (07:39→20:34)
[2021-05-11] MEDS: LOSARTAN 50 MG TABLET. PO SCH (07:39)
[2021-05-11] MEDS: CARVEDILOL 12.5 MG TABLET PO SCH ×3 (07:40→20:34)
[2021-05-11] MEDS: MULTIVITAMIN I-VITE TABLET. PO SCH ×2 (07:40→16:46)
[2021-05-11] MEDS: hydrALAZINE 25 MG TABLET PO SCH ×3 (07:40→16:46)
[2021-05-11] MEDS: DEMECLOCYCLINE HCL 150 MG TABLET. PO SCH ×2 (07:40→20:33)
[2021-05-11] MEDS: CALCIUM CARB/VIT D3 500/200 TABLET PO SCH ×2 (07:40→16:46)
[2021-05-11] MEDS: PANTOPRAZOLE 40 MG TABLET. PO SCH ×2 (07:40→16:30)
[2021-05-11] MEDS ORDERED: POTASSIUM CHLORIDE 20 MEQ TABLET.ER. PO SCH (09:00)
[2021-05-11] MEDS ORDERED: LIDOCAINE (700MG/PATCH) PATCH. TD SCH (09:00)
[2021-05-11] MEDS ORDERED: WARFARIN 3 MG TABLET. PO SCH (09:00)
[2021-05-11 10:27] VITALS: BP 164/75
[2021-05-11 15:25] VITALS: BP 172/74
[2021-05-11] MEDS: levETIRAcetam 500 MG TABLET PO SCH (16:46)
[2021-05-11] MEDS: IV NORMAL SALINE 1,000ML 1,000 ML IV SCH (18:30)
[2021-05-11 19:16] VITALS: BP 165/70
[2021-05-11] MEDS: DONEPEZIL HCL 5 MG TABLET. PO SCH (20:33)
[2021-05-11] MEDS ORDERED: SIMVASTATIN 40 MG TABLET. PO SCH (21:00)
[2021-05-11] MEDS ORDERED: NON FORMULARY ITEM (Ranitidine Hcl 1 TAB) PO SCH (21:00)
[2021-05-11] MEDS ORDERED: NISOLDIPINE 17 MG PO SCH (21:00)
[2021-05-11] MEDS ORDERED: PHENYTOIN SODIUM EXTENDED 100 MG CAPSULE PO SCH (21:00)
[2021-05-11] MEDS: AZITHROMYCIN 500 MG in IV NORMAL SALINE 250ML 250 ML IV SCH (21:41)
--- NOTE | 2021-05-11 23:14 | HP ---
DATE OF SERVICE: 05/11/2021 ADMIT DATE: 05/10/2021 CHIEF COMPLAINT: Failure to thrive. HISTORY OF PRESENT ILLNESS: The patient came in through the Emergency Room. The patient has not been eating or drinking over the last 2-3 days. The patient is deteriorated. She had a COVID-19 infection 2-1/2 weeks ago. The patient is just not feeling well. Decreased mood, somewhat depressed. The patient was markedly dehydrated. PAST MEDICAL HISTORY: Macular degeneration, dementia, anticoagulant therapy, hypercholesterolemia, GERD, coronary artery disease, hysterectomy, incontinence, osteoarthritis, syndrome of inappropriate ADH. Influenza, pneumococcal vaccines up to date. FAMILY HISTORY: Positive for natural , hypertension. ALLERGIES: No known drug allergies. HOME MEDICATIONS: Include ____ 5 mg a day, warfarin 3, simvastatin 40, hydralazine 25, carvedilol 25, losartan 100, Fentanyl, Keppra 500, fluoxetine, nystatin, lidocaine, Protonix. SOCIAL HISTORY: Denies smoking, alcohol, or drug use. Is a DNR. REVIEW OF SYSTEMS: The patient really not able to give any type of a history as she is not feeling very well and unable to really give any type of a significant history. PHYSICAL EXAMINATION: GENERAL: This is an ill-appearing white female, looking somewhat older than stated age. VITAL SIGNS: Blood pressure 164/75, respiratory rate 18, pulse 66, afebrile. HEENT: Head was atraumatic, normocephalic. Eyes: PERRLA without jaundice. The mouth and throat were normal. NECK: Supple without JVD, carotid bruits, or thyromegaly. LUNGS: Diminished throughout. CARDIOVASCULAR: Represented, irregularly irregular pattern. ABDOMEN: Soft, nontender. No rebound, no guarding. Positive bowel sounds. EXTREMITIES: No clubbing, cyanosis, or edema. Slight atrophy noted. NEUROLOGIC: The patient is alert but very minimal speech, noncommunicative. LABORATORY DATA: White count 4.5, hemoglobin 11 and hematocrit 34. Sodium 143, potassium 3.8. The patient's INR is 5.6, we will hold the warfarin. IMPRESSION: Change in mental status, metabolic encephalopathy, dehydration. PLAN: Continue to monitor patient accordingly. Make further evaluation on her as indicated. We will give her some IV antibiotic therapy, some fluids and see if that does not help revive her. MAHESH/ROX/MARCK DR: Jayro TID: [id number]
[2021-05-12 06:31] VITALS: BP 177/70
[2021-05-12] MEDS: MULTIVITAMIN I-VITE TABLET. PO SCH ×2 (08:14→17:35)
[2021-05-12] MEDS: PANTOPRAZOLE 40 MG TABLET. PO SCH (08:15)
[2021-05-12] MEDS: LOSARTAN 50 MG TABLET. PO SCH (08:15)
[2021-05-12] MEDS: FOLIC ACID 1 MG TABLET PO SCH (08:15)
[2021-05-12] MEDS: hydrALAZINE 25 MG TABLET PO SCH ×2 (08:15→12:00)
[2021-05-12] MEDS: CALCIUM CARB/VIT D3 500/200 TABLET PO SCH ×2 (08:15→17:35)
[2021-05-12] MEDS: levETIRAcetam 500 MG TABLET PO SCH (08:15)
[2021-05-12] MEDS: CARVEDILOL 12.5 MG TABLET PO SCH ×3 (08:15→21:27)
[2021-05-12] MEDS: NYSTATIN TOPICAL POWDER 15GM BOTTLE. TP SCH ×2 (08:16→21:00)
[2021-05-12] MEDS: DEMECLOCYCLINE HCL 150 MG TABLET. PO SCH ×2 (08:16→21:34)
[2021-05-12] MEDS: IV NORMAL SALINE 1,000ML 1,000 ML IV SCH (08:17)
[2021-05-12 10:52] VITALS: BP_SYST 192; BP_SYST 95; BP_DIAS 52; BP_DIAS 62
[2021-05-12] MEDS ORDERED: cloNIDine TTS-2 1 PATCH PATCH TD SCH (14:00)
[2021-05-12] MEDS ORDERED: AA 4.25 %/CALCIUM/LYTES/D5W 1,000 ML IV SCH (14:15)
[2021-05-12] MEDS: hydrALAZINE 10 MG TABLET PO SCH ×2 (17:37→21:28)
[2021-05-12 17:56] VITALS: BP 180/66
[2021-05-12 20:20] VITALS: BP 167/68
[2021-05-12] MEDS: LACTOBACILLUS RHAMNOSUS GG 1 CAPSULE. PO SCH (21:27)
[2021-05-12] MEDS: DONEPEZIL HCL 5 MG TABLET. PO SCH (21:27)
[2021-05-12] MEDS ORDERED: TOTAL PARENTERAL NUTRITION 656.4987 ML, AMINO ACID 15% 80 GM, DEXTROSE 50% WATER 500 ML... IV SCH (22:00)
--- NOTE | 2021-05-12 22:07 | PN ---
DATE: 05/12/2021 SUBJECTIVE: The patient came in with pneumonia and change in mental status. The patient is a little bit more alert. She does have baseline dementia and somewhat of a decreased affect overall. She seems to be making some progress. OBJECTIVE: VITAL SIGNS: Her blood pressures have been elevated, we have been adjusting her medications, one is high as 190/60 (NC), respiratory rate 18, pulse 55, afebrile. Room air at 96. GENERAL: The patient otherwise is alert, but confused, really does not say much and replied any questions. LUNGS: Diminished, but basically clear. CARDIOVASCULAR: Shows a sinus rhythm, S1, S2. ABDOMEN: Soft, nontender. EXTREMITIES: No clubbing, cyanosis, nor edema. NEUROLOGIC: The patient is alert, baseline. PLAN: We will go ahead and continue with IV antibiotic therapy. Try to encourage her to eat and take some nutritional support as she is not really taking much in overall. We will repeat her protime in the morning as it has been elevated. IMPRESSION: Change in mental status, anorexia, pneumonia of unspecified etiology, probably related to COVID-19, dehydration, metabolic encephalopathy. FELIX DR: Jayro TID: [id number]
[2021-05-12] MEDS: AZITHROMYCIN 500 MG in IV NORMAL SALINE 250ML 250 ML IV SCH (23:32)
[2021-05-13 00:07] VITALS: BP 95/54
[2021-05-13 05:33] VITALS: BP 114/56
[2021-05-13 08:15] LABS: ALBUMIN/GLOBULIN RATIO 0.5 (1.0-1.7); CALCIUM 7.7 mg/dL (8.5-10.1); CREATININE 0.9 mg/dL (0.6-1.0); GFR 59.5; TOTAL BILIRUBIN 0.3 mg/dL (0.2-1.0); TOTAL PROTEIN 5.8 g/dL (6.4-8.2)
[2021-05-13] MEDS: LOSARTAN 50 MG TABLET. PO SCH (08:25)
[2021-05-13] MEDS: CALCIUM CARB/VIT D3 500/200 TABLET PO SCH ×2 (08:26→17:00)
[2021-05-13] MEDS: DEMECLOCYCLINE HCL 150 MG TABLET. PO SCH ×2 (08:27→21:09)
[2021-05-13] MEDS: FOLIC ACID 1 MG TABLET PO SCH (08:27)
[2021-05-13] MEDS: hydrALAZINE 10 MG TABLET PO SCH ×3 (08:27→21:00)
[2021-05-13] MEDS: MULTIVITAMIN I-VITE TABLET. PO SCH ×2 (08:27→17:00)
[2021-05-13] MEDS: LACTOBACILLUS RHAMNOSUS GG 1 CAPSULE. PO SCH ×2 (08:27→21:09)
[2021-05-13] MEDS: CARVEDILOL 12.5 MG TABLET PO SCH ×3 (08:28→21:00)
[2021-05-13] MEDS: NYSTATIN TOPICAL POWDER 15GM BOTTLE. TP SCH ×2 (09:00→21:00)
[2021-05-13] MEDS ORDERED: PANTOPRAZOLE IV 80 MG in IV NORMAL SALINE 100ML 100 ML IV SCH (09:00)
[2021-05-13] MEDS ORDERED: PHYTONADIONE 10 MG/ML AMPUL. SQ ONE (09:15)
[2021-05-13 10:57] VITALS: BP 126/65
[2021-05-13] MEDS ORDERED: AA 4.25 %/CALCIUM/LYTES/D5W 2,000 ML IV SCH (11:00)
[2021-05-13] MEDS ORDERED: ELECTROLYTE (NON-ICU) PROTOCOL. MC PRN (11:00)
[2021-05-13] MEDS ORDERED: POTASSIUM CHLORIDE 20 MEQ TABLET.ER. PO ONE (15:30)
[2021-05-13 15:45] VITALS: BP 110/63
[2021-05-13] MEDS: levETIRAcetam 500 MG TABLET PO SCH (17:00)
[2021-05-13] MEDS: PANTOPRAZOLE 40 MG TABLET. PO SCH (17:00)
[2021-05-13 19:00] VITALS: BP 97/55
[2021-05-13] MEDS: DONEPEZIL HCL 5 MG TABLET. PO SCH (21:09)
[2021-05-13] MEDS: DESIPRAMINE HCL 10 MG TABLET PO SCH (21:12)
[2021-05-13] MEDS: AZITHROMYCIN 500 MG in IV NORMAL SALINE 250ML 250 ML IV SCH (22:00)
[2021-05-13 23:00] VITALS: BP 96/57
[2021-05-14 06:24] LABS: CREATININE 0.9 mg/dL (0.6-1.0); GFR 59.5; POTASSIUM 4.3 mmol/L (3.5-5.1)
[2021-05-14 07:52] VITALS: BP 118/57
[2021-05-14] MEDS: CITALOPRAM 10 MG TABLET. PO SCH (08:12)
[2021-05-14] MEDS: FOLIC ACID 1 MG TABLET PO SCH (08:12)
[2021-05-14] MEDS: CARVEDILOL 12.5 MG TABLET PO SCH ×3 (08:12→20:16)
[2021-05-14] MEDS: CALCIUM CARB/VIT D3 500/200 TABLET PO SCH ×2 (08:12→16:41)
[2021-05-14] MEDS: MULTIVITAMIN I-VITE TABLET. PO SCH ×2 (08:12→16:38)
[2021-05-14] MEDS: levETIRAcetam 500 MG TABLET PO SCH ×2 (08:12→16:41)
[2021-05-14] MEDS: PANTOPRAZOLE 40 MG TABLET. PO SCH ×2 (08:13→16:40)
[2021-05-14] MEDS: NYSTATIN TOPICAL POWDER 15GM BOTTLE. TP SCH ×2 (08:13→21:00)
[2021-05-14] MEDS: LACTOBACILLUS RHAMNOSUS GG 1 CAPSULE. PO SCH ×2 (08:13→20:15)
[2021-05-14] MEDS: DEMECLOCYCLINE HCL 150 MG TABLET. PO SCH ×2 (08:13→20:16)
[2021-05-14] MEDS: hydrALAZINE 10 MG TABLET PO SCH ×3 (09:00→20:15)
[2021-05-14] MEDS: LOSARTAN 50 MG TABLET. PO SCH (09:00)
[2021-05-14] MEDS: IV DEXTROSE 10% 1,000 ML IV SCH ×2 (09:05→22:25)
[2021-05-14 10:06] VITALS: BP 118/68
[2021-05-14 15:29] VITALS: BP 126/65
[2021-05-14 15:43] LABS: BACTERIA,URINE 0 /HPF (0-FEW); BILIRUBIN,URINE NEG (NEG); CLARITY,URINE CLEAR; COLOR,URINE YELLOW; GLUCOSE,URINE NEG (NEG); NITRITE,URINE NEG (NEG); RBC,URINE 0 /HPF (0-2); UROBILINOGEN,URINE 0.2 mg/dL (0.2 mg/dL); WBC,URINE 0 /HPF (0-4)
--- NOTE | 2021-05-14 18:20 | PN ---
DATE: 05/13/2021 SUBJECTIVE: The patient came in through the Emergency Room. She had been not eating or drinking for the last several days. She had a previous COVID infection about 2-1/2 weeks ago and the patient was not feeling well. She has extreme depressed mood. The patient slowly began to eat a little bit. She has been on IV supplementation for nutrition, IV antibiotic therapy. Chest x-ray did show beginnings of a pneumonic process. As a result of this, the patient was admitted, placed on IV antibiotic therapy. She is making mild progress, but still very depressed and the like. OBJECTIVE: VITAL SIGNS: Blood pressure 126/65, respiratory rate 20, pulse 70, afebrile, 95% on room air. GENERAL: The patient is alert, but very decreased mentation and decreased sensorium and very paucity of verbal comment. LUNGS: Otherwise, the patient's lungs are diminished. CARDIOVASCULAR: Stable. ABDOMEN: Soft, nontender. EXTREMITIES: No clubbing, cyanosis, nor edema. LABORATORY DATA: The patient's labs have been basically stable, white count 4, hemoglobin 11 and 34. Sodium and potassium 142 and 3. Electrolyte replaced but BUN and creatinine 21 and 0.9. IMPRESSION: 1. She has severe protein malnutrition. 2. Positive for COVID rapid and PCR, but these are probably leftover since her initial infection was approximately 2 weeks ago. PLAN: In any case, we will continue on present regimen. May start her on some antidepressant therapy. We will switch her back over to oral medications. At first, she was not taking anything she was unable to take her oral medications. We will convert her back over to oral meds and then probably start her back on some antidepressant therapy as well. MAHESH/ROSA/MARIANO DR: MAHESH/kenya TID: [id number]
[2021-05-14 19:00] VITALS: BP 125/68
[2021-05-14] MEDS: DONEPEZIL HCL 5 MG TABLET. PO SCH (20:15)
[2021-05-14] MEDS: DESIPRAMINE HCL 10 MG TABLET PO SCH (20:16)
--- NOTE | 2021-05-14 21:18 | PN ---
SUBJECTIVE: An 85-year-old female in with pneumonia and change in mental status. The patient seems to be a little bit more alert, but still very sedated. OBJECTIVE: GENERAL: The patient is alert at times, but very sedate. VITAL SIGNS: Blood pressure 126/65, respiratory rate 18, pulse 77, afebrile. LUNGS: Diminished, but basically clear. CARDIOVASCULAR: Irregular, irregular rhythm. ABDOMEN: Soft, nontender. EXTREMITIES: No clubbing, cyanosis or edema. NEUROLOGIC: Intact. IMPRESSION: Pneumonia, community-acquired, change in mental status, probably metabolic encephalopathy and sepsis. BHAVIN DR: Jayro TID: [id number]
[2021-05-14 23:00] VITALS: BP 114/73
[2021-05-14] MEDS: AZITHROMYCIN 500 MG in IV NORMAL SALINE 250ML 250 ML IV SCH (23:10)
[2021-05-15 06:14] VITALS: BP 133/72
[2021-05-15] MEDS: IV DEXTROSE 10% 1,000 ML IV SCH ×2 (06:43→18:28)
[2021-05-15] MEDS: MULTIVITAMIN I-VITE TABLET. PO SCH ×2 (08:00→18:16)
[2021-05-15] MEDS: NYSTATIN TOPICAL POWDER 15GM BOTTLE. TP SCH ×2 (09:00→20:38)
[2021-05-15] MEDS: CITALOPRAM 10 MG TABLET. PO SCH (09:40)
[2021-05-15] MEDS: FOLIC ACID 1 MG TABLET PO SCH (09:40)
[2021-05-15] MEDS: hydrALAZINE 10 MG TABLET PO SCH ×3 (09:41→20:37)
[2021-05-15] MEDS: CALCIUM CARB/VIT D3 500/200 TABLET PO SCH ×2 (09:41→18:16)
[2021-05-15] MEDS: levETIRAcetam 500 MG TABLET PO SCH ×2 (09:41→18:16)
[2021-05-15] MEDS: CARVEDILOL 12.5 MG TABLET PO SCH ×3 (09:42→20:36)
[2021-05-15] MEDS: LACTOBACILLUS RHAMNOSUS GG 1 CAPSULE. PO SCH ×2 (09:42→20:34)
[2021-05-15] MEDS: DEMECLOCYCLINE HCL 150 MG TABLET. PO SCH ×2 (09:42→20:36)
[2021-05-15] MEDS: PANTOPRAZOLE 40 MG TABLET. PO SCH ×2 (09:43→18:16)
[2021-05-15] MEDS: LOSARTAN 50 MG TABLET. PO SCH (09:43)
[2021-05-15 11:40] VITALS: BP 138/85
[2021-05-15 15:56] VITALS: BP 125/61
[2021-05-15] MEDS ORDERED: WARFARIN 4 MG TABLET. PO SCH (18:15)
[2021-05-15 20:31] VITALS: BP 135/61
[2021-05-15] MEDS: DONEPEZIL HCL 5 MG TABLET. PO SCH (20:34)
[2021-05-15] MEDS: DESIPRAMINE HCL 10 MG TABLET PO SCH (20:36)
--- NOTE | 2021-05-15 22:53 | PN ---
SUBJECTIVE: An 85-year-old female in with pneumonia, change in mental status. The patient is still very noncommunicative, very decreased mentation. The patient not made much progress overall, she is stable. OBJECTIVE: VITAL SIGNS: Blood pressure 125/60, respiration 18, pulse 61, afebrile. GENERAL: The patient is alert, but noncommunicative. LUNGS: Diminished, but clear. CARDIOVASCULAR: Irregular regular. ABDOMEN: Soft, nontender. We will go ahead and continue to monitor the patient. INR is down. We will restart her on her warfarin and make adjustments accordingly on that element as well. IMPRESSION: Pneumonia, probably related to COVID-19; change in mental status; severe protein malnutrition; metabolic encephalopathy; anemia of chronic disease. PLAN: Continue on present drug regimen and hopefully transfer back to nursing facility. MAHESH/REMIGIO DR: MAHESH/kenya TID: [id number]
[2021-05-15 23:58] VITALS: BP 130/69
[2021-05-16 06:16] VITALS: BP 165/79
[2021-05-16] MEDS: IV DEXTROSE 10% 1,000 ML IV SCH ×2 (07:00→14:25)
[2021-05-16] MEDS: CITALOPRAM 10 MG TABLET. PO SCH (08:16)
[2021-05-16] MEDS: CALCIUM CARB/VIT D3 500/200 TABLET PO SCH ×2 (08:16→16:39)
[2021-05-16] MEDS: LACTOBACILLUS RHAMNOSUS GG 1 CAPSULE. PO SCH ×2 (08:16→19:22)
[2021-05-16] MEDS: MULTIVITAMIN I-VITE TABLET. PO SCH ×2 (08:17→16:39)
[2021-05-16] MEDS: PANTOPRAZOLE 40 MG TABLET. PO SCH ×2 (08:17→16:39)
[2021-05-16] MEDS: hydrALAZINE 10 MG TABLET PO SCH ×3 (08:17→19:23)
[2021-05-16] MEDS: LOSARTAN 50 MG TABLET. PO SCH (08:17)
[2021-05-16] MEDS: FOLIC ACID 1 MG TABLET PO SCH (08:17)
[2021-05-16] MEDS: CARVEDILOL 12.5 MG TABLET PO SCH ×3 (08:18→19:29)
[2021-05-16] MEDS: levETIRAcetam 500 MG TABLET PO SCH ×2 (08:18→16:39)
[2021-05-16] MEDS: NYSTATIN TOPICAL POWDER 15GM BOTTLE. TP SCH ×2 (08:19→19:23)
[2021-05-16] MEDS: DEMECLOCYCLINE HCL 150 MG TABLET. PO SCH ×2 (08:20→19:22)
[2021-05-16 10:40] VITALS: BP 170/75
[2021-05-16 15:24] VITALS: BP 93/50
[2021-05-16] MEDS ORDERED: WARFARIN 10 MG TABLET. PO ONE (16:00)
[2021-05-16] MEDS ORDERED: WARFARIN 10 MG TABLET. PO SCH (16:00)
[2021-05-16] MEDS: DONEPEZIL HCL 5 MG TABLET. PO SCH (19:22)
[2021-05-16 19:36] VITALS: BP 84/48
[2021-05-16] MEDS ORDERED: DESIPRAMINE HCL 25 MG TABLET PO SCH (21:00)
[2021-05-16] MEDS ORDERED: AA 4.25 %/CALCIUM/LYTES/D5W 2,000 ML IV SCH (22:00)
--- NOTE | 2021-05-16 23:00 | PN ---
DATE: 05/16/2021 SUBJECTIVE: The patient is still a little bit better. She is alert, but does not say much and not wanting to do much here in the facility. We are to put a Srinivasan catheter if she is retaining urine. Other than that, the patient basically is stable. OBJECTIVE: VITAL SIGNS: Blood pressure 165/80, respiratory rate 62, afebrile, 99 on room air. GENERAL: The patient otherwise alert, as noted pretty much very sedate, otherwise seems to be making fairly good progress. LUNGS: Diminished, primarily in the bases. CARDIOVASCULAR: Regular sinus rhythm. ABDOMEN: Soft, nontender. NEUROLOGIC: Baseline. IMPRESSION: SARS COVID-19 pneumonia, change in mental status, urinary retention, severe protein malnutrition. PLAN: We will go ahead and continue to monitor patient and hopefully ready for discharge to a facility. We will repeat chest x-ray on her and make sure things have cleared up. Hopefully, ready for discharge here soon. MAHESH/EKMicah DR: Jayro TID: [id number]
[2021-05-16 23:33] VITALS: BP 104/59
[2021-05-17 05:44] VITALS: BP 149/67
[2021-05-17] MEDS: NYSTATIN TOPICAL POWDER 15GM BOTTLE. TP SCH (09:00)
[2021-05-17] MEDS: CITALOPRAM 10 MG TABLET. PO SCH (09:26)
[2021-05-17] MEDS: FOLIC ACID 1 MG TABLET PO SCH (09:26)
[2021-05-17] MEDS: LOSARTAN 50 MG TABLET. PO SCH (09:26)
[2021-05-17] MEDS: levETIRAcetam 500 MG TABLET PO SCH (09:26)
[2021-05-17] MEDS: LACTOBACILLUS RHAMNOSUS GG 1 CAPSULE. PO SCH (09:26)
[2021-05-17] MEDS: MULTIVITAMIN I-VITE TABLET. PO SCH (09:26)
[2021-05-17] MEDS: DEMECLOCYCLINE HCL 150 MG TABLET. PO SCH (09:27)
[2021-05-17] MEDS: CARVEDILOL 12.5 MG TABLET PO SCH ×2 (09:27→14:17)
[2021-05-17] MEDS: hydrALAZINE 10 MG TABLET PO SCH ×2 (09:27→14:16)
[2021-05-17] MEDS: PANTOPRAZOLE 40 MG TABLET. PO SCH (09:29)
[2021-05-17] MEDS: CALCIUM CARB/VIT D3 500/200 TABLET PO SCH (09:29)
[2021-05-17 11:02] VITALS: BP 36/82
[2021-05-17 14:17] VITALS: BP 113/84
[2021-05-17] MEDS ORDERED: WARFARIN 5 MG TABLET. PO SCH (16:00)
== END 2021-05-17 15:43 | DRG 177 ==
LOC: ER 14:30 → ER HOLD 16:19 → 1 SOUTH 19:50
PROVIDERS: ADMIT Family Medicine; ATTEND Family Medicine
DX: U07.1 COVID-19 (principal); G93.41 Metabolic encephalopathy; E43 Unspecified severe protein-calorie malnutrition; J12.82 Pneumonia due to coronavirus disease 2019; S22.41XA Multiple fractures of ribs, right side, initial encounter for closed fracture; Z68.1 Body mass index [BMI] 19.9 or less, adult; D63.8 Anemia in other chronic diseases classified elsewhere; E78.00 Pure hypercholesterolemia, unspecified; E86.0 Dehydration; F03.90 Unspecified dementia, unspecified severity, without behavioral disturbance, psychotic disturbance, mood disturbance, and anxiety; F32.A Depression, unspecified; I10 Essential (primary) hypertension; I25.10 Atherosclerotic heart disease of native coronary artery without angina pectoris; M81.0 Age-related osteoporosis without current pathological fracture; R62.7 Adult failure to thrive; Z66 Do not resuscitate; Z82.49 Family history of ischemic heart disease and other diseases of the circulatory system; Z86.73 Personal history of transient ischemic attack (TIA), and cerebral infarction without residual deficits; Z90.710 Acquired absence of both cervix and uterus; K21.9 Gastro-esophageal reflux disease without esophagitis; M19.90 Unspecified osteoarthritis, unspecified site
CPT/HCPCS: 36415; 71045; 80048; 80053; 80177; 81001; 82140; 83735; 84100; 84484; 85025; 85610; 87426; 93005; 96360; 96361; C9113; J0456; J0696; J1953; J3430; J3490; J7050; U0003; 97110; 97530; 97535; 99285-25; J7030

== ENCOUNTER 2021-07-11 17:03 | Inpatient (IN) | payer MEDICARE, BC ==
[~2021-07-11] VITALS: Ht 157.5 cm; Wt 41.6 kg
[~2021-07-11 17:03] MED LIST changes: +LEVE500T56 PO
--- NOTE | 2021-07-11 17:20 | RAD ---
PQRS Compliance Statement: One or more of the following individualized dose reduction techniques were utilized for this examinat ion: 1. Automated exposure control 2. Adjustment of the mA and/or kV according to patient size 3. Use of iterative reconstruction technique CT HEAD WITHOUT CONTRAST History: Reason: NEURO deficit, aphasia. Patient can't provide much history. Comparison: CT head without contrast March 09, 2021. Technique: Axial images are obtained of the head from the skull base through the vertex without IV co ntrast. Findings: There are stable old infarct of the right occipital lobe. Ex vacuo dilation of the right temporal and occipital horns is stable. No mass-effect, midline shift, extra-axial fluid collection, hemorrhage, or obvious acute infarction is identified. Basilar cisterns are patent. The ventricles and sulci are prominent, consistent with generalized cerebral atrophy. There is perive ntricular white matter hypoattenuation. This is a nonspecific finding but is commonly due to chronic small vessel ischemic disease. Bone windows demonstrate no acute calvarial abnormality. The visualized paranasal sinuses are clear. Mastoid air cells are well aerated. IMPRESSION: 1. No acute intracranial abnormality. 2. 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 3. Generalized cerebral atrophy and periventricular white matter changes probably due to chronic sma ll vessel ischemic disease. FOR INTERNAL CODING PURPOSES Critical result: Findings discussed with CHRISTY MANCIA DO at 07/11/2021 5:16 PM. RESULT CODE: (C) 1. Electronically signed by: Koffi Ly MD (07/11/2021 5:17 PM) [id number]
[2021-07-11 17:49] LABS: BASO # 0.1 x10^3/uL (0.0-0.2); BASO % 1 % (0-3); EOS # 0.4 x10^3/uL (0.0-0.7); EOS % 8 % (0-3); HEMATOCRIT 36.6 % (36.0-47.0); LYMPH # 1.4 x10^3/uL (1.0-4.8); LYMPH % 27 % (24-48); MEAN CORPUSCULAR HEMOGLOBIN 29 pg (25-35); MEAN CORPUSCULAR HGB CONC 33 g/dL (31-37); MEAN CORPUSCULAR VOLUME 89 fL (79-100); MONO # 0.7 x10^3/uL (0.0-1.1); MONO % 13 % (0-9); NEUT # 2.6 x10^3uL (1.8-7.7); NEUT % 51 % (31-73); PLATELET COUNT 244 x10^3/uL (140-400); RED BLOOD COUNT 4.09 x10^6/uL (3.50-5.40); RED CELL DISTRIBUTION WIDTH 14.5 % (11.5-14.5); WHITE BLOOD COUNT 5.2 x10^3/uL (4.0-11.0)
[2021-07-11] MEDS ORDERED: cloNIDine HCL 0.1 MG TABLET PO ONE (18:00)
--- NOTE | 2021-07-11 18:02 | PHYS DOC ---
Past History Past Medical History: CVA, Dementia, Depression, GERD, High Cholesterol, Hypertension, Seizure, Other Additional Past Medical Histor: SIADH; LOW POTASSIUM; MACULAR DEGEN; OSTEOPOROSIS Past Surgical History: Hysterectomy, Tonsillectomy Smoking: Non-smoker Alcohol Use: None Drug Use: None General Adult EDM: Chief Complaint: NEURO SYMPTOMS/DEFICITS HPI: HPI: 85-year-old female presents via EMS as a code stroke. Patient was noted to have slurred speech and worsening weakness on the left side 30 minutes prior to arrival. Patient does not have any specific complaints. She does say that her left hip hurts a little bit and she feels weak. She does not want to follow directions though she seems to understand what we are asking. Review of Systems: Review of Systems: Constitutional: Denies fever or chills Eyes: Denies change in visual acuity HENT: Denies nasal congestion or sore throat Respiratory: Denies cough or shortness of breath Cardiovascular: Denies chest pain or edema GI: Denies abdominal pain, nausea, vomiting, bloody stools or diarrhea : Denies dysuria Musculoskeletal: Left hip pain Integument: Denies rash Neurologic: Slurred speech Endocrine: Denies polyuria or polydipsia Lymphatic: Denies swollen glands Psychiatric: Denies depression or anxiety Allergies: Allergies: Allergies Coded Allergies Type Severity Reaction Last Updated Verified No Known Drug Allergies 01/19/20 No Physical Exam: PE: Constitutional: Well developed, well nourished, no acute distress, non-toxic appearance. [] HENT: Normocephalic, atraumatic, bilateral external ears normal, oropharynx moist, no oral exudates, nose normal. [] Eyes: PERRLA, EOMI, conjunctiva normal, no discharge. [] Neck: Normal range of motion, no tenderness, supple, no stridor. [] Cardiovascular: Heart rate regular rhythm, no murmur [] Lungs & Thorax: Bilateral breath sounds clear to auscultation [] Abdomen: Bowel sounds normal, soft, no tenderness, no masses, no pulsatile masses. [] Skin: Warm, dry, no erythema, no rash. [] Back: No tenderness, no CVA tenderness. [] Extremities: No tenderness, no cyanosis, no clubbing, ROM intact, no edema. [] Neurologic: Alert and oriented X 3, see NIH stroke scale [] Psychologic: Affect normal, judgement normal, mood normal. [] Current Patient Data: Labs: Laboratory Tests Test 07/11/21 17:28 Glucose (Fingerstick) 86 mg/dL (70-99) Vital Signs: Vital Signs Date Time Temp Pulse Resp B/P (MAP) Pulse Ox O2 Delivery O2 Flow Rate FiO2 07/11/21 17:20 70 20 205/77 (119) 100 Room Air 07/11/21 17:15 97.8 EKG: EKG: [] Radiology/Procedures: Radiology/Procedures: [] Heart Score: C/O Chest Pain: N/A Risk Factors: Risk Factors: DM, Current or recent (<one month) smoker, HTN, HLP, family history of CAD, obesity. Risk Scores: Score 0 - 3: 2.5% MACE over next 6 weeks - Discharge Home Score 4 - 6: 20.3% MACE over next 6 weeks - Admit for Clinical Observation Score 7 - 10: 72.7% MACE over next 6 weeks - Early Invasive Strategies Course & Med Decision Making: Course & Med Decision Making Pertinent Labs and Imaging studies reviewed. (See chart for details) The patient's head CT is negative for acute findings. She does have an old right-sided stroke. She has some left-sided weakness as a result. She had no speech difficulty prior to this episode today. Her NIH is an 11. At least 4 of these can be attributed to her previous stroke and existing deficits. The patient seems generally weak and tired. She normally is able to walk with her walker but her bilateral lower extremity weakness would likely make this diff icult or impossible at this time. Her blood pressure is elevated and will bring it down a little but would not be aggressive given the strokelike symptoms. The patient is already on anticoagulation so TPA is ruled out. The patient's family is in agreement with this. I will admit the patient to Dr. Palumbo. He has accepted patient for admission. I also discussed the patient with the neurologist, Dr. Quispe and he believes the patient can be admitted to this facility. Family is in agreement with admission to this hospital. [] Nikolai Disclaimer: Nikolai Disclaimer: This electronic medical record was generated, in whole or in part, using a voice recognition dictation system. NIH Stroke Scale: NIH Stroke Scale Response (Comments) Value Level of Consciousness: 0 Alert/Responsive 0 LOC Questions: 1 Answers one correctly 1 LOC Commands: 0 Performs both tasks 0 Best Gaze: 0 Normal 0 Visual: 0 No visual loss 0 Facial Palsy: 1 Minor paralysis 1 Motor - Left Arm 1 Drifts, but can hold 1 Motor - Right Arm 1 Drifts but can hold 1 Motor - Left Leg 2 Some effort 2 Motor: Right Leg 2 Some effort 2 Limb Ataxia: 1 One limb 1 Sensory: 0 No loss 0 Best Language: 1 Mild to mod aphasia 1 Dysathria: 1 Mild to moderate 1 Extinction and Inattention: 0 Normal 0 Total 11 Departure Departure: Impression: Primary Impression: Facial droop Additional Impression: Slurred speech Disposition: ADMITTED INPATIENT Admitting Physician: Toño Palumbo Condition: STABLE Referrals: TOÑO PALUMBO MD (PCP) CHRISTY MANCIA DO Jul 11, 2021 18:02
[2021-07-11 18:09] LABS: CALCIUM 8.5 mg/dL (8.5-10.1); CREATININE 0.7 mg/dL (0.6-1.0); GFR 79.5; POTASSIUM 4.7 mmol/L (3.5-5.1)
[2021-07-11 18:15] LABS: ALBUMIN 2.7 g/dL (3.4-5.0); ALBUMIN/GLOBULIN RATIO 0.7 (1.0-1.7); TOTAL BILIRUBIN 0.3 mg/dL (0.2-1.0); TOTAL PROTEIN 6.5 g/dL (6.4-8.2)
[2021-07-11] MEDS ORDERED: ONDANSETRON PF 4 MG/2 ML VIAL. IVP PRN (18:15)
--- NOTE | 2021-07-11 19:30 | NUR ---
Admitted this 85 y/o female to room 109 at 1855 per EMS cart from ED. Pt. A et O X 3. Responses slightly slow. pt. does not remember why she is here. Pt. stated daughters name and said that she was her sister. Pt. being admitted for episode of slurred speech et confusion. Spoke with daughter on the phone. Daughter states mother was eating her supper et suddenly began mumbling et had slurred speech. Pt. given call light et demonstrated ability to use. Will make hourly rounds. Pt. put on COVID precautions d/t pending PCR results.
[2021-07-11] MEDS ORDERED: DESI10TA PO (20:26)
[2021-07-11] MEDS ORDERED: POTA-121 PO (20:26)
[2021-07-11] MEDS ORDERED: CITA10TA5 PO (20:26)
--- NOTE | 2021-07-11 20:30 | NUR ---
Spoke to Dr. Palumbo re: pt. night medications et B/P 209/. Orders received et noted.
[2021-07-11] MEDS ORDERED: NON FORMULARY ITEM (Carvedilol 25 MG) PO SCH (21:00)
[2021-07-11] MEDS ORDERED: ANTI-COAG MONITOR BY PHARMACY. MC PRN (21:45)
--- NOTE | 2021-07-11 22:00 | EKG ---
[address] [address] Test Date: 2021-07-11 Test Time: 17:15:38 Pat Name: EZEQUIEL GARCIA Department: Room: 109 A Gender: F Founder And President: ALURIE : 1935 Requested By: CHRISTY MANCIA Order Number: [id number] Reading MD: Eloy Bhatia Measurements Intervals [place] Rate: 73 P: 36 ME: 232 QRS: 24 QRSD: 68 T: 58 QT: 396 QTc: 440 Interpretive Statements SINUS RHYTHM PROLONGED ME INTERVAL QRS(T) CONTOUR ABNORMALITY CONSISTENT WITH ANTEROSEPTAL INFARCT AGE UNDETERMINED ABNORMAL ECG Electronically Signed On 07-12-2021 8:26:02 [employer] by Eloy Bhatia
[2021-07-11] MEDS: DONEPEZIL HCL 5 MG TABLET. PO SCH (22:07)
[2021-07-11] MEDS: DESIPRAMINE HCL 10 MG TABLET PO SCH (22:07)
[2021-07-11] MEDS: POTASSIUM CHLORIDE 20 MEQ TABLET.ER. PO SCH (22:08)
[2021-07-11] MEDS: amLODIPine BESYLATE 5 MG TABLET PO SCH (22:08)
[2021-07-11] MEDS: WARFARIN 3 MG TABLET. PO SCH (22:10)
[2021-07-11] MEDS: CARVEDILOL 12.5 MG TABLET PO SCH (22:12)
[2021-07-11 23:12] VITALS: BP 185/76
[2021-07-12] VITALS (7 sets, daily range): BP systolic 103–204; BP diastolic 64–85
--- NOTE | 2021-07-12 06:20 | NUR ---
Pt. has rested quietly throughout NOC. Cont. to deny discomfort. No changes from previous assessment.
[2021-07-12] MEDS: PANTOPRAZOLE 40 MG TABLET. PO SCH (07:30)
[2021-07-12] MEDS ORDERED: NIFEdipine 10 MG CAPSULE PO ONE (07:45)
[2021-07-12] MEDS: CARVEDILOL 12.5 MG TABLET PO SCH ×2 (07:53→20:26)
[2021-07-12] MEDS: POTASSIUM CHLORIDE 20 MEQ TABLET.ER. PO SCH ×2 (07:53→20:25)
--- NOTE | 2021-07-12 11:17 | NUR ---
PATIENT WEIGHT ON ADMIT, WAS RECORDED 48 KG, INCORRECT D/T 4 BLANKETS AND EMS COVERS INCLUDED IN WEIGHT. ALONDRA RECHECKED AND IS 43.1 KG
--- NOTE | 2021-07-12 12:50 | CONS ---
DATE OF CONSULTATION: 07/11/2021 NEUROLOGY CONSULTATION REFERRING PHYSICIAN: Dr. Driscoll. REASON FOR CONSULTATION: Rule out TIA versus stroke. HISTORY OF PRESENT ILLNESS: This is an 85-year-old right-handed female who is known to me with longstanding history of seizure disorder, macular degeneration and a history of stroke and dementia, was admitted through Emergency Room on account of weakness of the lower extremities, generalized weakness and some slurred speech. The patient stated her symptoms started shortly. She was witnessed by ER physician to have a facial droop and her blood pressure was elevated at 206/63 when I received a call from Emergency Room. The patient denies chest pain, shortness of breath or palpitation, dysarthria or dysphagia. Initial nonenhanced head CT scan revealed evidence of no acute intracranial process, but it showed old right occipital lobe infarct, which resulted in left peripheral vision defect. The patient denies headache or new visual disturbances, nausea, vomiting. She just complains of generalized weakness. PAST MEDICAL HISTORY: Quite significant for seizure disorder, but she has not had any seizure for at least the last 3 years. She has been stable on anticonvulsant phenytoin. 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 History of slowly progressive dementia, generalized weakness, osteoarthritis, hyperlipidemia, previous stroke as described above, hypokalemia, GERD. PAST SURGICAL HISTORY: Positive for tonsillectomy and hysterectomy. FAMILY HISTORY: Noncontributory. SOCIAL HISTORY: The patient is . She lives with her at home. She denies smoking, alcohol drinking or illicit drug use. CURRENT HOME MEDICATIONS: Pantoprazole 40 mg p.o. daily, warfarin 3 mg daily, amlodipine 5 mg p.o. daily, potassium 20 mEq daily, donepezil 5 mg daily, desipramine 10 mg at bedtime, carvedilol 12.5 mg p.o. b.i.d. ALLERGIES: No known drug allergies. REVIEW OF SYSTEMS: A 10-point review of system was performed as mentioned above in history of present illness, otherwise unremarkable. PHYSICAL EXAMINATION: GENERAL: Well-developed, well-nourished female in no acute distress. She weighs 43.1 kilos. VITAL SIGNS: Blood pressure 207/77, respiratory rate 18, pulse is 71 and regular, oxygen saturation is 96%, temperature 98.1. HEENT: Normocephalic, atraumatic. Otherwise unremarkable. NECK: Supple, negative for carotid bruit, lymphadenopathy or thyromegaly. LUNGS: Clear to A and P. CARDIOVASCULAR: Regular rate and rhythm, normal S1, S2. There is no S3, S4 or murmur. ABDOMEN: Soft. Bowel sounds positive. EXTREMITIES: Negative for cyanosis, clubbing or edema. NEUROLOGIC: Mental status: The patient is alert and oriented x 2. The speech is fluent. There is no language dysfunction. Memory, judgment and abstracting thinking are fair. The patient denies hallucination or delusion. Cranial nerves: Visual mitchell, consistent with left homonymous hemianopsia. Pupils are equal and reactive to light and accommodation. The extraocular movements are intact. There is no nystagmus. There is no facial motor or sensory deficit. Hearing is intact bilaterally. The palate is elevated symmetrically. Sternocleidomastoid muscles are powerful bilaterally. The patient shrugs her shoulders symmetrically, protrudes her tongue in the midline without fasciculation or atrophy. Motor exam: No focal muscle bulk wasting. The tone is normal. The strength is 4/5 throughout. Sensory examination revealed a normal pinprick and light touch senses throughout. Deep tendon reflexes were asymmetric and hypoactive with absent Achilles responses. Gait not tested. LABORATORY DATA: CBC revealed white blood cells of 5.2 thousand, hemoglobin 12, hematocrit 36.6, platelet count 244,000. Chemistry revealed sodium of 138, potassium 4.7, chloride 103, CO2 of 31, BUN 16, creatinine 0.7, glucose 95, calcium is 8.5. Liver enzymes are normal. Troponin I high sensitivity is at 12. PT is 17, INR 1.6, and PTT is 27. Serology: COVID rapid is negative. IMPRESSION: 1. Transient ischemic attack, probably due to underlying severe hypertension. 2. Multiple risk factors including age, previous stroke resulted in left homonymous hemianopsia. 3. Multiple medical problems include hypertension, hyperlipidemia, seizure disorder, osteoarthritis and dementia. RECOMMENDATIONS: 1. Continue with current management initiated by Dr. Palumbo including Coumadin. 2. PT, OT. 3. To drop the blood pressure slowly in acceptable range, is 140/90. MARY/GO/NEPTALI DR: MARY/kenya TID: [id number]
[2021-07-12] MEDS ORDERED: CARV12.547 PO (15:45)
[2021-07-12] MEDS ORDERED: DESI10TA PO (15:45)
[2021-07-12] MEDS ORDERED: amLODIPine BESYLATE 5 MG TABLET PO ONE (16:00)
[2021-07-12] MEDS: WARFARIN 3 MG TABLET. PO SCH (16:16)
--- NOTE | 2021-07-12 18:38 | HP ---
DATE OF SERVICE: 07/12/2021 ADMIT DATE: 07/11/2021 HISTORY OF PRESENT ILLNESS: An 85-year-old patient with history of seizure disorder as well as macular degeneration. Apparently, on account of weakness in lower extremities and generalized weakness, slurred speech, came in through the Emergency Room. Blood pressure was elevated 206/63. The patient was also having witnessed by the ER a facial droop and of course the hypertensive urgency. The patient's shortness of breath was evaluated. Patient, on enhanced CT, revealed no evidence of any acute process. 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 The patient was admitted for further evaluation of a stroke in evolution and further complications thereof. PAST MEDICAL HISTORY: Bilateral vision loss, macular degeneration, history of seizures, dementia, coronary artery disease, anticoagulation with warfarin long-term, hypertension, gastroesophageal reflux, hysterectomy, musculoskeletal disorder, left rib pain, osteoarthritis, osteoporosis, SIADH, depression. Influenza vaccination and pneumococcal up to date. ALLERGIES: No known drug allergies. FAMILY HISTORY: Positive for hypertension and natural cause of . SOCIAL HISTORY: No smoking, alcohol or drug use. REVIEW OF SYSTEMS: The patient not able to give much of a detailed history, but denies any headaches, visual changes, blurred vision, double vision. Denies chest pain, shortness of breath, abdominal pain. Denies any melena, hematochezia or hematemesis and neurologically baseline where she does have some mild dementia, Alzheimer type. PHYSICAL EXAMINATION: VITAL SIGNS: Blood pressure initially 204/75, brought down to 166/74; respiratory rate 18, pulse 70, afebrile, room air 97%. GENERAL: Otherwise, well-developed, well-nourished female. HEENT: Head atraumatic, normocephalic. Eyes were basically PERRL. Mouth and throat were normal. NECK: Supple without JVD or thyromegaly. LUNGS: Diminished, but clear. CARDIOVASCULAR: Regular sinus rhythm, S1, S2. ABDOMEN: Soft, nontender. No rebound or guarding. Positive bowel sounds. No hepatosplenomegaly was noted. EXTREMITIES: No clubbing, cyanosis nor edema. Pulses noted distally 2/4. NEUROLOGIC: Alert, oriented just x2. Some difficulty in speech though. Memory, judgment was fair. The patient obviously has some visual defects. The patient was hard of hearing. The patient's muscle tone was basically symmetrical, although the patient did have some weakness in the lower extremities. There was some asymmetry to the reflexes. Hypoactive and absent Achilles responses. The patient otherwise was evaluated. LABORATORY DATA: Demonstrated 5.2, hemoglobin 12 and 36. Chemistries 138, 4.7, albumin low at 2.7. Coags, the INR was slightly low at 1.6. Serology negative for COVID-19. MEDICATIONS: The patient's home medications include that of warfarin 3 mg, carvedilol 12.5 b.i.d., Keppra 500 mg 1 b.i.d., Celexa, desipramine 10 mg, calcium chloride, Eylea for macular degeneration, Zofran, Protonix 20 mg b.i.d. and eye vitamins. The patient is a DNR. The patient will be admitted for further evaluation and treatment thereof. We will get a consult with Dr. Quispe. IMPRESSION: Transient ischemic attack, hypertensive urgency, severe protein malnutrition, macular degeneration, hyperlipidemia, history of seizure disorder, osteoarthritis and dementia. The patient continued to be monitored carefully. We will make further evaluation on her as indicated. MAHESH/WALTER DR: MAHESH/kenya TID: [id number]
[2021-07-12] MEDS: DESIPRAMINE HCL 10 MG TABLET PO SCH (20:24)
[2021-07-12] MEDS: amLODIPine BESYLATE 5 MG TABLET PO SCH (20:26)
[2021-07-12] MEDS: DONEPEZIL HCL 5 MG TABLET. PO SCH (20:27)
[2021-07-12] MEDS: levETIRAcetam 250 MG TABLET PO SCH (20:27)
--- NOTE | 2021-07-12 22:45 | NUR ---
B/P 183/81 @ 1999. HS antihypertensives given. @ 2230 B/P remains high at 187/84. notified. Orders received et noted.
[2021-07-12] MEDS ORDERED: hydrALAZINE 25 MG TABLET PO SCH (23:00)
[2021-07-13 05:47] VITALS: BP 175/83
--- NOTE | 2021-07-13 05:49 | NUR ---
Pt. has been up et down throughout NOC trying to get out of bed without assist. Confused. Pt. awoke not knowing where she was. Reoriented easily. Cont. to deny discomfort this AM. Is able to tell month et year as well as her name and . No further changes from previous assessment.
[2021-07-13] MEDS: levETIRAcetam 250 MG TABLET PO SCH (08:06)
[2021-07-13] MEDS: POTASSIUM CHLORIDE 20 MEQ TABLET.ER. PO SCH (08:06)
[2021-07-13] MEDS: PANTOPRAZOLE 40 MG TABLET. PO SCH (08:07)
[2021-07-13] MEDS: CARVEDILOL 12.5 MG TABLET PO SCH (08:07)
[2021-07-13] MEDS ORDERED: CARVEDILOL 12.5 MG TABLET PO ONE (09:30)
[2021-07-13] MEDS ORDERED: CARV12.547 PO (09:41)
[2021-07-13] MEDS ORDERED: AMLO-186 PO (09:41)
[2021-07-13] MEDS ORDERED: WARF4TAB64 PO (09:41)
[2021-07-13] MEDS ORDERED: DONE5TAB56 PO (09:41)
[2021-07-13 10:19] VITALS: BP 187/84
--- NOTE | 2021-07-13 10:47 | DISCH ---
HOME HEALTH DISCHARGE/MEDS DISCHARGE INFORMATION: Discharge Date: Jul 13, 2021 Final Diagnosis: Problems Medical Problems: (1) Facial droop Status: Acute (2) Slurred speech Status: Acute Condition on Discharge: Stable CODE STATUS: Code Status: DNR/DNI HOME HEALTH: Face to Face: I certify this patient is under my care and that I, or a nurse practitioner or physician's ice cream freezer assistant working with me, had a face to face encounter that meets the physician face to face encounter requirements with this patient on July 13, 2021. Medical Condition(s): Dementia, HTN, Other (history of stroke) Snf For: Assess Cardiopulm Status, Assess & Educate Safety, Assess/Skilled Observatio, Medication Management Physical Therapy For: Evalulation/Treatment Occupational Therapy For: Evaluation/Treatment Speech Language Pathology For: Swallow Cognition Homebound Status Met By: Unsteady balance w/ amb,, Poor cognition POST DISCHARGE ORDERS: Activity Instructions for Disc: Activity as tolerated Weight Bearing Status after Di: No restrictions DIET AFTER DISCHARGE: Cardiac CERTIFICATION STATEMENT: Certification Statement: Based on the above finding, I certify that this patient is confined to the home and needs intermittent retirement care, physical therapy and/or speech therapy, or continues to need occupational therapy.~ This patient is under my care, and I have initiated the establishment of the plan of care.~ This patient will be followed by myself or a community physician who will periodically review the plan of care. DISCHARGE MEDICATIONS: Home Meds Active Scripts Warfarin Sodium (WARFARIN SODIUM) 4 Mg Tablet, 4 MG PO DAILY16 for cva for 30 Days, #30 TAB Prov:OBED PETTIT MD 07/13/21 Donepezil Hcl (ARICEPT) 5 Mg Tablet, 5 MG PO QHS for demntia for 30 Days, #30 TAB Prov:OBED PETTIT MD 07/13/21 Carvedilol (CARVEDILOL ) 12.5 Mg Tablet, 25 MG PO TID for htn for 30 Days, #180 TAB Prov:OBED PETTIT MD 07/13/21 Amlodipine Besylate (AMLODIPINE BESYLATE) 5 Mg Tablet, 5 MG PO HS for htn for 30 Days, #30 TAB Prov:OBED PETTIT MD 07/13/21 Ondansetron (ONDANSETRON ODT) 4 Mg Tab.rapdis, 4 MG PO PRN Q8HRS PRN for NAUSEA/VOMITING, #10 TAB 1 Refill Prov:OBED PETTIT MD 09/23/18 Reported Medications Desipramine Hcl (NORPRAMIN) 10 Mg Tablet, 0.5 TAB PO DAILY for NERVE PAIN, TAB 07/12/21 Desipramine Hcl (DESIPRAMINE HCL) 10 Mg Tablet, 1 TAB PO QHS for depressive disorder LAST DOSE GIVEN: DATE:yesterday TIME:bedtime NEXT DOSE DUE: DATE:tonight TIME:bedtime 07/11/21 Potassium Chloride (KLOR-CON M20) 20 Meq Tab.er.prt, 1 TAB PO BID for hypokalemia LAST DOSE GIVEN: DATE:today TIME:am NEXT DOSE DUE: DATE:today TIME:bedtime 07/11/21 Citalopram Hydrobromide (CITALOPRAM HBR) 10 Mg Tablet, 1 TAB PO DAILY for depressive disorder LAST DOSE GIVEN: not given in hospital NEXT DOSE DUE: DATE:tomorrow TIME:am 07/11/21 Levetiracetam (KEPPRA) 500 Mg Tablet, 1 TAB PO BIDWMEALS for SEIZURES for 30 Days, #60 TAB 0 Refills LAST DOSE GIVEN: DATE:today TIME:am NEXT DOSE DUE: DATE:tonight TIME:dinner 05/10/21 Aflibercept (EYLEA) 2 Mg/0.05 Ml Vial, 2 MG IO Q2-3 months for Macular Degeneration, EACH LAST DOSE GIVEN: not given in hospital 09/10/18 Calcium Carbonate/Vitamin D3 (CALCIUM 500 + VIT D 200 TABLET) 1 Each Tablet, 1 EACH PO BIDWMEALS for supplement, TAB LAST DOSE GIVEN: not given in hospital NEXT DOSE DUE: DATE:today TIME:dinner 09/10/18 Vit A/Vit C/Vit E/Zinc/Copper (PRESERVISION AREDS SOFTGEL) 1 Each Capsule, 1 EACH PO BIDWMEALS for macular degeneration, CAP LAST DOSE GIVEN: not given in hospital NEXT DOSE DUE: DATE:today TIME:dinner 09/10/18 Pantoprazole Sodium (PROTONIX) 20 Mg Tablet.dr, 20 MG PO BIDBFRMEAL for GERD, TAB LAST DOSE GIVEN: DATE:today TIME:am NEXT DOSE DUE: DATE:tonight TIME:dinner 09/10/18 Discontinued Reported Medications Carvedilol (CARVEDILOL ) 12.5 Mg Tablet, 12.5 MG PO BIDWMEALS for CARDIAC, TAB 07/12/21 Warfarin Sodium (WARFARIN SODIUM) 3 Mg Tablet, 3 MG PO DAILY17 for blood thinner, TAB 09/10/18 Donepezil Hcl (DONEPEZIL HCL) 5 Mg Tablet, 5 MG PO QHS for dementia, TAB 09/10/18 [Demeclocycline] No Conflict Check, 300 MG PO BID for SIADH 09/10/18 Carvedilol (CARVEDILOL) 25 Mg Tablet, 25 MG PO TID for HTN, TAB 09/10/18 Folic Acid (FOLIC ACID) 1 Mg Tablet, 1 TAB PO DAILY for SUPPLEMENT LAST DOSE GIVEN: DATE: TODAY TIME: AM NEXT DOSE DUE: DATE: TOMORROW TIME: AM 08/10/16 OBED PETTIT MD Jul 13, 2021 10:47
--- NOTE | 2021-07-13 10:51 | NUR ---
Discharge note Pt discharged at 1051 via wheel chair accompanied by staff and family member . pt given written and verbal instructions for discharge with verbal statement of understanding received
--- NOTE | 2021-07-13 12:13 | PN ---
DATE: 07/13/2021 SUBJECTIVE: The patient denies any new medical or neurological complaints. She has been receiving physical therapy since yesterday and she uses a walker for ambulation. She denies any new medical or neurological complaints. OBJECTIVE: GENERAL: A well-developed, well-nourished female in no acute distress. VITAL SIGNS: Blood pressure 187/84, respiratory rate 18, pulse is 88 and regular, oxygen saturation is 95% on room air. HEENT: Normocephalic, atraumatic. Otherwise unremarkable. NECK: Supple, negative for carotid bruit, lymphadenopathy or thyromegaly. LUNGS: Clear to A and P. CARDIOVASCULAR: Regular rate and rhythm, normal S1, S2. There is no S3, S4 or murmur. ABDOMEN: Soft. Bowel sounds positive. EXTREMITIES: Negative for cyanosis, clubbing or pedal edema. NEUROLOGIC: Normal mental status and intact cranial nerves. The patient recalls 2/3 immediately and after 1 and 3 minutes. Judgment and abstracting thinking are normal. The patient denies hallucination or delusion. Cranial nerves are intact except for left homonymous hemianopsia secondary to old stroke. No focal motor or sensory deficit. Deep tendon reflexes were symmetric and hypoactive with absent Achilles responses. Gait: The patient uses a walker for ambulation. IMPRESSION: 1. Transient ischemic attack, resulted in generalized weakness and weakness of the lower extremities -- resolved. 2. Multiple risk factors including previous stroke, age, hypertension, hyperlipidemia. 3. Multiple medical problems include macular degeneration, malnutrition and seizure disorder. RECOMMENDATIONS: Continue with current conservative management initiated by Dr. Palumbo and home medications along with physical therapy as tolerated. LATONIA DR: MARY/kenya TID: [id number]
[2021-07-13] MEDS ORDERED: CARVEDILOL 12.5 MG TABLET PO SCH (14:00)
--- NOTE | 2021-07-13 14:19 | PN ---
DATE: 07/12/2021 SUBJECTIVE: The patient denies any new medical or neurological complaints. She continues to have mild weakness of the lower extremities. She has been using a walker today with assistance. She denies chest pain, shortness of breath or palpitation, dysarthria or dysphagia. OBJECTIVE: GENERAL: Well-developed, well-nourished female in no acute distress. She weighs 41.6 kilos. VITAL SIGNS: Blood pressure 103/67, respiratory rate is 18, pulse is 60 and regular, oxygen saturation 96% on room air and temperature is 97.4. HEENT: Normocephalic, atraumatic. otherwise unremarkable. NECK: Supple, negative for carotid bruit, lymphadenopathy or thyromegaly. LUNGS: Clear to A and P. CARDIOVASCULAR: Regular rate and rhythm, normal S1, S2. There is no S3, S4 or murmur. ABDOMEN: Soft. Bowel sounds positive. EXTREMITIES: Negative for cyanosis, clubbing or pedal edema. NEUROLOGIC: Mental status: The patient is alert and oriented x 3. The speech is fluent. There is no language dysfunction. Cranial nerves are unremarkable except for left homonymous hemianopsia. No focal motor or sensory deficits. Deep tendon reflexes were symmetric and hypoactive with absent Achilles responses. Gait: The patient uses a walker for ambulation. IMPRESSION: 1. Transient ischemic attack, probably secondary to severe hypertension. 2. Old stroke resulted in left homonymous hemianopsia, osteoarthritis, history of seizure disorder, hypertension, and early dementia. RECOMMENDATIONS: Continue with current management initiated by Dr. Palumbo and physical therapy as tolerated. MARY/GO/BABAK DR: MARY/kenya TID: [id number]
[2021-07-13] MEDS ORDERED: WARFARIN 4 MG TABLET. PO ONE (16:00)
== END 2021-07-13 11:30 | disposition home health service (06) | DRG 69 ==
LOC: ER 17:03 → ER HOLD 18:06 → 1 SOUTH 18:28
PROVIDERS: ADMIT Family Medicine; ATTEND Family Medicine
DX: G45.9 Transient cerebral ischemic attack, unspecified (principal); E43 Unspecified severe protein-calorie malnutrition; Z68.1 Body mass index [BMI] 19.9 or less, adult; E78.00 Pure hypercholesterolemia, unspecified; E78.5 Hyperlipidemia, unspecified; F03.90 Unspecified dementia, unspecified severity, without behavioral disturbance, psychotic disturbance, mood disturbance, and anxiety; G40.909 Epilepsy, unspecified, not intractable, without status epilepticus; I10 Essential (primary) hypertension; I16.0 Hypertensive urgency; I25.10 Atherosclerotic heart disease of native coronary artery without angina pectoris; F32.A Depression, unspecified; K21.9 Gastro-esophageal reflux disease without esophagitis; Z20.822 Contact with and (suspected) exposure to COVID-19; M19.90 Unspecified osteoarthritis, unspecified site; Z79.01 Long term (current) use of anticoagulants; Z79.899 Other long term (current) drug therapy; Z82.49 Family history of ischemic heart disease and other diseases of the circulatory system; Z86.73 Personal history of transient ischemic attack (TIA), and cerebral infarction without residual deficits; Z90.710 Acquired absence of both cervix and uterus
CPT/HCPCS: 36415; 70450; 80053; 82947; 84484; 85025; 85610; 85730; 87426; 93005; U0003; 97530; 97535; 99285-25

== ENCOUNTER 2021-07-17 14:20 | Observation (INO) | payer MEDICARE, BC ==
[~2021-07-17] VITALS: Ht 157.5 cm; Wt 42.1 kg
[~2021-07-17 14:20] MED LIST changes: +AMLO-186 PO; +CARV12.547 PO; +CITA10TA5 PO; +DESI10TA PO; +DONE5TAB56 PO
--- NOTE | 2021-07-17 14:54 | PHYS DOC ---
Past History Past Medical History: CVA, Dementia, Depression, GERD, High Cholesterol, Hypertension, Seizure, Other Additional Past Medical Histor: SIADH; LOW POTASSIUM; MACULAR DEGEN; OSTEOPOROSIS Past Surgical History: Hysterectomy, Tonsillectomy Smoking: Non-smoker Alcohol Use: None Drug Use: None General Adult EDM: Chief Complaint: ALTERED MENTAL STATUS HPI: HPI: 85-year-old female presents with hallucinations and not sleeping for nearly 48 hours. History is presented by the family. She has a known history of dementia. She has been more altered the last couple of days. No falls or trauma. They called Dr. Driscoll's office and he advised that she come in for baseline evaluation. The patient is not on psychiatric medications. Her only change in medications from her recent admission was for blood pressure. She denies any pain. No noted fever. Review of Systems: Review of Systems: Constitutional: Denies fever or chills Eyes: Denies change in visual acuity HENT: Denies nasal congestion or sore throat Respiratory: Denies cough or shortness of breath Cardiovascular: Denies chest pain or edema GI: Denies abdominal pain, nausea, vomiting, bloody stools or diarrhea : Denies dysuria Musculoskeletal: Denies back pain or joint pain Integument: Denies rash Neurologic: Denies headache, focal weakness or sensory changes Endocrine: Denies polyuria or polydipsia Lymphatic: Denies swollen glands Psychiatric: Hallucinations, not sleeping. Allergies: Allergies: Allergies Coded Allergies Type Severity Reaction Last Updated Verified No Known Drug Allergies 01/19/20 No Physical Exam: PE: Constitutional: Well developed, well nourished, no acute distress, non-toxic appearance. [] HENT: Normocephalic, atraumatic, bilateral external ears normal, oropharynx dry, no oral exudates, nose normal. [] Eyes: PERRLA, EOMI, conjunctiva normal, no discharge. [] Neck: Normal range of motion, no tenderness, supple, no stridor. [] Cardiovascular: Heart rate 65, regular rhythm, no murmur [] Lungs & Thorax: Bilateral breath sounds clear to auscultation [] Abdomen: Bowel sounds normal, soft, no tenderness, no masses, no pulsatile masses. [] Skin: Warm, dry, no erythema, no rash. [] Back: No tenderness, no CVA tenderness. [] Extremities: No tenderness, no cyanosis, no clubbing, ROM intact, no edema. [] Neurologic: Alert and oriented X 3, normal motor function, normal sensory function, no focal deficits noted. [] Psychologic: Affect normal, mood normal. Reaching for things that are not there. [] Current Patient Data: Labs: Laboratory Tests Test 07/17/21 14:39 Glucose (Fingerstick) 122 mg/dL (70-99) H Vital Signs: Vital Signs Date Time Temp Pulse Resp B/P (MAP) Pulse Ox O2 Delivery O2 Flow Rate FiO2 07/17/21 14:33 97.9 67 16 165/75 (105) 98 Room Air EKG: EKG: Sinus rhythm, rate 64, normal axis, no ST elevation depression, first-degree heart block. [] Radiology/Procedures: Radiology/Procedures: [] Impressions: CT HEAD INDICATION: Altered mental status COMPARISON: 07/11/2021 Exposure: One or more of the following individualized dose reduction techniques were utilized for this examination: 1. Automated exposure control 2. Adjustment of the mA and/or kV according to patient size 3. Use of iterative reconstruction technique TECHNIQUE: 5 mm contiguous axial images were obtained from the skull base to the vertex in both bone and soft tissue algorithm. FINDINGS: Mild bilateral periventricular white matter hypodensities likely chronic small vessel ischemic disease. Moderate size infarct right occipital lobe similar to prior exam. No evidence of acute intracranial hemorrhage. No extra-axial fluid collecti ons. No mass effect or midline shift. Ventricular size is appropriate. Basal cisterns are patent. No fractures identified.Lin-white differentiation is preserved.Globes and orbits are within normal limits. Paranasal sinuses and mastoid air cells are c lear. IMPRESSION: 1. No acute intracranial findings. 2. Moderate size infarct right occipital lobe similar to prior exam. Electronically signed by: Diego Penaloza MD (07/17/2021 3:38 PM) [id number] DICTATED AND SIGNED BY: DIEGO PENALOZA MD DATE: 07/17/21 1530 CC: CHRISTY MANCIA DO; OBED PETTIT MD ~MTH0 0 Heart Score: C/O Chest Pain: N/A Risk Factors: Risk Factors: DM, Current or recent (<one month) smoker, HTN, HLP, family history of CAD, obesity. Risk Scores: Score 0 - 3: 2.5% MACE over next 6 weeks - Discharge Home Score 4 - 6: 20.3% MACE over next 6 weeks - Admit for Clinical Observation Score 7 - 10: 72.7% MACE over next 6 weeks - Early Invasive Strategies Course & Med Decision Making: Course & Med Decision Making Pertinent Labs and Imaging studies reviewed. (See chart for details) The patient's head CT is negative for acute findings. There are chronic findings. See official read for more details. Her EKG is unremarkable except for prolonged [place] interval. Labs are unremarkable. Urinalysis is negative for infection. The patient does appear to be having active hallucinations. She did recently start Norvasc. There is a rare complication with Norvasc for some people hallucinate especially within the first 30 days. Made her physician, Dr. Pettit aware of this for his consideration. He has accepted the patient for admission to the hospital. [] Dragon Disclaimer: Dragon Disclaimer: This electronic medical record was generated, in whole or in part, using a voice recognition dictation system. Departure Departure: Impression: Primary Impression: Hallucination, visual Disposition: ADMITTED INPATIENT Admitting Physician: Obed Pettit Condition: STABLE Referrals: OBED PETTIT MD (PCP) CHRISTY MANCIA DO Jul 17, 2021 14:54
[2021-07-17] MEDS ORDERED: IV NORMAL SALINE 500ML 500 ML IV ONE (15:00)
[2021-07-17 15:04] LABS: BASO # 0.1 x10^3/uL (0.0-0.2); BASO % 1 % (0-3); EOS # 0.4 x10^3/uL (0.0-0.7); EOS % 7 % (0-3); HEMATOCRIT 37.2 % (36.0-47.0); HEMOGLOBIN 12.2 g/dL (12.0-15.5); LYMPH # 1.1 x10^3/uL (1.0-4.8); LYMPH % 20 % (24-48); MEAN CORPUSCULAR HEMOGLOBIN 29 pg (25-35); MEAN CORPUSCULAR HGB CONC 33 g/dL (31-37); MEAN CORPUSCULAR VOLUME 87 fL (79-100); MONO # 0.6 x10^3/uL (0.0-1.1); MONO % 11 % (0-9); NEUT # 3.4 x10^3uL (1.8-7.7); NEUT % 60 % (31-73); PLATELET COUNT 243 x10^3/uL (140-400); RED BLOOD COUNT 4.27 x10^6/uL (3.50-5.40); WHITE BLOOD COUNT 5.7 x10^3/uL (4.0-11.0)
--- NOTE | 2021-07-17 15:07 | RAD ---
Single AP view of the chest. Comparison: 05/10/2021. Indication: Shortness of breath Findings: The aorta is calcified and tortuous. There are multiple healing right posterior lateral rib fractures reidentified. The heart is enlarged but stable. There is no pneumothorax or effusion. No air space or interstitial disease. Impression: 1. No acute cardiopulmonary process. Electronically signed by: Carroll George MD (07/17/2021 3:05 PM) [facility]
[2021-07-17 15:12] LABS: CALCIUM 8.6 mg/dL (8.5-10.1); CREATININE 0.8 mg/dL (0.6-1.0); GFR 68.2; POTASSIUM 4.4 mmol/L (3.5-5.1)
[2021-07-17 15:17] LABS: ALBUMIN 3.2 g/dL (3.4-5.0); ALBUMIN/GLOBULIN RATIO 0.9 (1.0-1.7); TOTAL BILIRUBIN 0.3 mg/dL (0.2-1.0); TOTAL PROTEIN 6.8 g/dL (6.4-8.2)
[2021-07-17 15:26] LABS: INFLUENZA A PATIENT NEGATIVE (NEGATIVE); INFLUENZA B PATIENT NEGATIVE (NEGATIVE)
--- NOTE | 2021-07-17 15:40 | RAD ---
CT HEAD INDICATION: Altered mental status COMPARISON: 07/11/2021 Exposure: One or more of the following individualized dose reduction techniques were utilized for thi s examination: 1. Automated exposure control 2. Adjustment of the mA and/or kV according to patient size 3. Use of iterative reconstruction technique TECHNIQUE: 5 mm contiguous axial images were obtained from the skull base to the vertex in both bone and soft tissue algorithm. FINDINGS: Mild bilateral periventricular white matter hypodensities likely chronic small vessel ischemic diseas e. Moderate size infarct right occipital lobe similar to prior exam. No evidence of acute intracranial hemorrhage. No extra-axial fluid collections. No mass effect or midline shift. Ventricular size is appropriate. Basal cisterns are patent. No fractures identified.Lin-white differentiation is preserved.Globes and orbits are within normal l imits. Paranasal sinuses and mastoid air cells are clear. IMPRESSION: 1. No acute intracranial findings. 2. Moderate size infarct right occipital lobe similar to prior exam. Electronically signed by: Diego Penaloza MD (07/17/2021 3:38 PM) [id number]
[2021-07-17 16:13] LABS: BACTERIA,URINE 0 /HPF (0-FEW); CLARITY,URINE CLEAR; COLOR,URINE YELLOW; GLUCOSE,URINE NEG (NEG); NITRITE,URINE NEG (NEG); RBC,URINE 0 /HPF (0-2); UROBILINOGEN,URINE 0.2 mg/dL (0.2 mg/dL); WBC,URINE 0 /HPF (0-4)
[2021-07-17] MEDS ORDERED: cloNIDine HCL 0.1 MG TABLET PO ONE (16:30)
[2021-07-17] MEDS ORDERED: ONDANSETRON PF 4 MG/2 ML VIAL. IVP PRN (17:15)
[2021-07-17] MEDS ORDERED: AFLIBERCEPT IO SCH (18:15)
[2021-07-17] MEDS ORDERED: ONDANSETRON ODT 4 MG TAB.RAPDIS PO PRN (18:15)
[2021-07-17] MEDS: CARVEDILOL 12.5 MG TABLET PO SCH (21:00)
[2021-07-17] MEDS: DONEPEZIL HCL 5 MG TABLET. PO SCH (21:00)
[2021-07-17] MEDS: POTASSIUM CHLORIDE 20 MEQ TABLET.ER. PO SCH (21:00)
[2021-07-17] MEDS: DESIPRAMINE HCL 10 MG TABLET PO SCH (21:00)
[2021-07-17 21:13] VITALS: BP 173/69
--- NOTE | 2021-07-17 23:03 | EKG ---
[facility] [address] [place] [address] Test Date: 2021-07-17 Test Time: 14:48:50 Pat Name: EZEQUIEL GARCIA Department: Room: Gender: F Frame Fixer: : 1935 Requested By: CHRISTY MANCIA Order Number: [id number] Reading MD: Measurements Intervals [place] Rate: 64 P: 35 PA: 234 QRS: 6 QRSD: 64 T: 66 QT: 426 QTc: 444 Interpretive Statements SINUS RHYTHM PROLONGED PA INTERVAL QRS(T) CONTOUR ABNORMALITY CONSISTENT WITH ANTEROSEPTAL INFARCT AGE UNDETERMINED ST & T ABNORMALITY, CONSIDER HIGH LATERAL ISCHEMIA OR LEFT VENTRICULAR STRAIN ABNORMAL ECG RI6.01 No previous ECG available for comparison
[2021-07-17 23:33] VITALS: BP 163/70
[2021-07-18 05:52] VITALS: BP 155/72
[2021-07-18] MEDS: PANTOPRAZOLE 40 MG TABLET. PO SCH ×2 (09:08→17:38)
[2021-07-18] MEDS: MULTIVITAMIN I-VITE TABLET. PO SCH ×2 (09:09→17:38)
[2021-07-18] MEDS: CITALOPRAM 10 MG TABLET. PO SCH (09:09)
[2021-07-18] MEDS: CALCIUM CARB/VIT D3 500/200 TABLET PO SCH ×2 (09:09→17:39)
[2021-07-18] MEDS: levETIRAcetam 500 MG TABLET PO SCH ×2 (09:09→17:39)
[2021-07-18] MEDS: POTASSIUM CHLORIDE 20 MEQ TABLET.ER. PO SCH ×2 (09:10→20:48)
[2021-07-18] MEDS: DESIPRAMINE HCL 10 MG TABLET PO SCH ×2 (09:10→20:48)
[2021-07-18] MEDS: CARVEDILOL 12.5 MG TABLET PO SCH ×3 (09:10→20:47)
[2021-07-18 10:38] VITALS: BP 159/76
[2021-07-18 14:03] VITALS: BP 147/70
[2021-07-18] MEDS ORDERED: WARFARIN 4 MG TABLET. PO SCH (16:00)
[2021-07-18 19:50] VITALS: BP 137/76
[2021-07-18] MEDS: DONEPEZIL HCL 5 MG TABLET. PO SCH (20:46)
--- NOTE | 2021-07-18 22:10 | PN ---
SUBJECTIVE: An 85-year-old female admitted for observation. The patient has been having hallucinations and change in mentation. The patient is resting fairly comfortably. She still has a few hallucinations, but seems to be doing better in that regard with some adjustment of her medications, notably the amlodipine, which apparently may have been started and cause some type of interaction to give her these hallucinations. OBJECTIVE: VITAL SIGNS: Blood pressure 147/70, respiration 16, pulse 61, afebrile. GENERAL: The patient is alert, baseline mentation. She does have some mild dementia. HEENT: PERRLA. Mouth and throat normal. NECK: Supple. LUNGS: Clear. CARDIOVASCULAR: Regular sinus rhythm. ABDOMEN: Soft, diffuse tenderness. Scaphoid. EXTREMITIES: No clubbing, cyanosis or edema. NEUROLOGIC: baseline. We will go ahead and continue to monitor the patient accordingly and adjust her medications. Continue to monitor blood pressure without the Norvasc and make further recommendations. IMPRESSION: Change in mentation and hallucinations. PLAN: As above. MAHESH/REMIGIO DR: MAHESH/kenay TID: [id number]
[2021-07-18 23:40] VITALS: BP 146/67
[2021-07-19 05:35] VITALS: BP 175/74
[2021-07-19] MEDS: CITALOPRAM 10 MG TABLET. PO SCH (08:43)
[2021-07-19] MEDS: CALCIUM CARB/VIT D3 500/200 TABLET PO SCH (08:43)
[2021-07-19] MEDS: MULTIVITAMIN I-VITE TABLET. PO SCH (08:43)
[2021-07-19] MEDS: PANTOPRAZOLE 40 MG TABLET. PO SCH (08:43)
[2021-07-19] MEDS: CARVEDILOL 12.5 MG TABLET PO SCH ×2 (08:43→14:00)
[2021-07-19] MEDS: POTASSIUM CHLORIDE 20 MEQ TABLET.ER. PO SCH (08:43)
[2021-07-19] MEDS: levETIRAcetam 500 MG TABLET PO SCH (08:43)
[2021-07-19] MEDS: DESIPRAMINE HCL 10 MG TABLET PO SCH (08:45)
--- NOTE | 2021-07-19 09:42 | DISCH ---
HOME HEALTH DISCHARGE/MEDS DISCHARGE INFORMATION: Discharge Date: Jul 19, 2021 Final Diagnosis: Problems Medical Problems: (1) Hallucination, visual Status: Acute Condition on Discharge: Stable CODE STATUS: Code Status: DNR/DNI HOME HEALTH: Face to Face: I certify this patient is under my care and that I, or a nurse practitioner or physician's assistant counsel working with me, had a face to face encounter that meets the physician face to face encounter requirements with this patient on July 19, 2021. Medical Condition(s): CHF, Dementia, HTN Long Term For: Assess Cardiopulm Status, Assess & Educate Safety, Assess/Skilled Observatio, Medication Management Physical Therapy For: Evalulation/Treatment Occupational Therapy For: Evaluation/Treatment POST DISCHARGE ORDERS: DIET AFTER DISCHARGE: Cardiac CHECKS AFTER DISCHARGE: Checks after discharge: Check blood press - daily, Weigh Yourself Daily CERTIFICATION STATEMENT: Certification Statement: Based on the above finding, I certify that this patient is confined to the home and needs intermittent residential care, physical therapy and/or speech therapy, or continues to need occupational therapy.~ This patient is under my care, and I have initiated the establishment of the plan of care.~ This patient will be followed by myself or a community physician who will periodically review the plan of care. DISCHARGE MEDICATIONS: Home Meds Active Scripts Warfarin Sodium (WARFARIN SODIUM) 4 Mg Tablet, 4 MG PO DAILY16 for cva for 30 Days, #30 TAB Prov:OBED PETTIT MD 07/13/21 Donepezil Hcl (ARICEPT) 5 Mg Tablet, 5 MG PO QHS for demntia for 30 Days, #30 TAB Prov:OBED PETTIT MD 07/13/21 Carvedilol (CARVEDILOL ) 12.5 Mg Tablet, 25 MG PO TID for htn for 30 Days, #180 TAB Prov:OBED PETTIT MD 07/13/21 Amlodipine Besylate (AMLODIPINE BESYLATE) 5 Mg Tablet, 5 MG PO HS for htn for 30 Days, #30 TAB Prov:OBED PETTIT MD 07/13/21 Ondansetron (ONDANSETRON ODT) 4 Mg Tab.rapdis, 4 MG PO PRN Q8HRS PRN for NAUSEA/VOMITING, #10 TAB 1 Refill Prov:OBED PETTIT MD 09/23/18 Reported Medications Desipramine Hcl (NORPRAMIN) 10 Mg Tablet, 0.5 TAB PO DAILY for NERVE PAIN, TAB 07/12/21 Desipramine Hcl (DESIPRAMINE HCL) 10 Mg Tablet, 1 TAB PO QHS for depressive diso rder LAST DOSE GIVEN: DATE:yesterday TIME:bedtime NEXT DOSE DUE: DATE:tonight TIME:bedtime 07/11/21 Potassium Chloride (KLOR-CON M20) 20 Meq Tab.er.prt, 1 TAB PO BID for hypokalemia LAST DOSE GIVEN: DATE:today TIME:am NEXT DOSE DUE: DATE:today TIME:bedtime 07/11/21 Citalopram Hydrobromide (CITALOPRAM HBR) 10 Mg Tablet, 1 TAB PO DAILY for depressive disorder LAST DOSE GIVEN: not given in hospital NEXT DOSE DUE: DATE:tomorrow TIME:am 07/11/21 Levetiracetam (KEPPRA) 500 Mg Tablet, 1 TAB PO BIDWMEALS for SEIZURES for 30 Days, #60 TAB 0 Refills LAST DOSE GIVEN: DATE:today TIME:am NEXT DOSE DUE: DATE:tonight TIME:dinner 05/10/21 Aflibercept (EYLEA) 2 Mg/0.05 Ml Vial, 2 MG IO Q2-3 months for Macular Degeneration, EACH LAST DOSE GIVEN: not given in hospital 09/10/18 Calcium Carbonate/Vitamin D3 (CALCIUM 500 + VIT D 200 TABLET) 1 Each Tablet, 1 EACH PO BIDWMEALS for supplement, TAB LAST DOSE GIVEN: not given in hospital NEXT DOSE DUE: DATE:today TIME:dinner 09/10/18 Vit A/Vit C/Vit E/Zinc/Copper (PRESERVISION AREDS SOFTGEL) 1 Each Capsule, 1 EACH PO BIDWMEALS for macular degeneration, CAP LAST DOSE GIVEN: not given in hospital NEXT DOSE DUE: DATE:today TIME:dinner 09/10/18 Pantoprazole Sodium (PROTONIX) 20 Mg Tablet.dr, 20 MG PO BIDBFRMEAL for GERD, TAB LAST DOSE GIVEN: DATE:today TIME:am NEXT DOSE DUE: DATE:tonight TIME:dinner 09/10/18 Discontinued Reported Medications Carvedilol (CARVEDILOL ) 12.5 Mg Tablet, 12.5 MG PO BIDWMEALS for CARDIAC, TAB 07/12/21 Warfarin Sodium (WARFARIN SODIUM) 3 Mg Tablet, 3 MG PO DAILY17 for blood thinner, TAB 09/10/18 Donepezil Hcl (DONEPEZIL HCL) 5 Mg Tablet, 5 MG PO QHS for dementia, TAB 09/10/18 OBED PETTIT MD Jul 19, 2021 09:42
[2021-07-19] MEDS ORDERED: HYDR-2868 PO (09:44)
[2021-07-19 11:57] VITALS: BP 136/64
[2021-07-19 14:00] VITALS: BP 136/64
== END 2021-07-19 15:35 | disposition home or self-care (01) ==
LOC: ER 14:20 → INTOOBSV 17:11 → ER HOLD 17:11 → 1 SOUTH 18:44
PROVIDERS: ADMIT Family Medicine; ATTEND Family Medicine
DX: R44.1 Visual hallucinations (principal); Z20.822 Contact with and (suspected) exposure to COVID-19; I10 Essential (primary) hypertension; E78.00 Pure hypercholesterolemia, unspecified; M81.0 Age-related osteoporosis without current pathological fracture; F03.90 Unspecified dementia, unspecified severity, without behavioral disturbance, psychotic disturbance, mood disturbance, and anxiety; K21.9 Gastro-esophageal reflux disease without esophagitis; R41.82 Altered mental status, unspecified; F32.9 Major depressive disorder, single episode, unspecified; R56.9 Unspecified convulsions; Z86.73 Personal history of transient ischemic attack (TIA), and cerebral infarction without residual deficits; Z90.710 Acquired absence of both cervix and uterus; Z90.49 Acquired absence of other specified parts of digestive tract; Z79.899 Other long term (current) drug therapy; Z98.890 Other specified postprocedural states
CPT/HCPCS: 36415; 70450; 71045; 80053; 81001; 82947; 84484; 85025; 85610; 85730; 87428; 93005; 96374; 99285; G0378; J2060; J7040; U0003; G0379

== ENCOUNTER 2021-09-25 11:32 | Emergency (ER) | payer MEDICARE, BC ==
[~2021-09-25] VITALS: Ht 157.5 cm; Wt 51.5 kg
[2021-09-25] MEDS ORDERED: IV NORMAL SALINE 500ML 500 ML IV ONE (12:00)
[2021-09-25] MEDS ORDERED: IV NORMAL SALINE 250ML 250 ML ONE (12:13)
[2021-09-25] MEDS ORDERED: niCARdipine INJ. IV ONE (12:13)
[2021-09-25] MEDS ORDERED: IOHEXOL 350 MG/ML 100 ML VIAL. IV ONE (12:15)
--- NOTE | 2021-09-25 12:29 | RAD ---
CT STROKE HEAD W/O History: Reason: sudden vision loss / Spl. Instructions: / History: Comparison: July 17, 2021 Technique: Noncontrast CT imaging was performed of the head. Exposure: One or more of the following individualized dose reduction techniques were utilized for thi s examination: 1. Automated exposure control 2. Adjustment of the mA and/or kV according to patient size 3. Use of iterative reconstruction technique. Findings: New left parietal occipital intraparenchymal hemorrhage with adjacent edema. Mild adjacent mass effec t. The hemorrhage measures 1.7 cm anterior posterior by 1.9 cm transverse by 2.5 cm craniocaudal. Chronic right occipital infarct with ex vacuo dilatation of the right lateral ventricle. Extensive foci of decreased attenuation within the hemispheric white matter, most often due to chroni c microvascular ischemia, unchanged. Imaged orbits are unremarkable. Secretions within the sphenoid sinuses. Mastoid air cells are clear. No acute calvarial fracture. Impression: 1. Acute left parieto-occipital intraparenchymal hemorrhage with adjacent edema. 2. Chronic right occipital infarct. 3. Extensive sequelae of chronic microvascular ischemia. FOR INTERNAL CODING PURPOSES Critical result: Findings discussed with CHAYA PAULINO MD at 09/25/2021 12:18 PM. RESULT CODE: (C) Electronically signed by: Idris Zuniga DO (09/25/2021 12:26 PM) [id number]
[2021-09-25 12:34] LABS: BASO # 0.1 x10^3/uL (0.0-0.2); BASO % 1 % (0-3); EOS # 0.4 x10^3/uL (0.0-0.7); EOS % 7 % (0-3); HEMATOCRIT 36.6 % (36.0-47.0); HEMOGLOBIN 11.9 g/dL (12.0-15.5); LYMPH # 1.1 x10^3/uL (1.0-4.8); LYMPH % 17 % (24-48); MEAN CORPUSCULAR HEMOGLOBIN 26 pg (25-35); MEAN CORPUSCULAR HGB CONC 33 g/dL (31-37); MEAN CORPUSCULAR VOLUME 80 fL (79-100); MONO # 0.7 x10^3/uL (0.0-1.1); MONO % 11 % (0-9); NEUT % 64 % (31-73); PLATELET COUNT 214 x10^3/uL (140-400); RED BLOOD COUNT 4.58 x10^6/uL (3.50-5.40); RED CELL DISTRIBUTION WIDTH 14.2 % (11.5-14.5); WHITE BLOOD COUNT 6.2 x10^3/uL (4.0-11.0)
--- NOTE | 2021-09-25 12:44 | PHYS DOC ---
Past History Past Medical History: CVA, Dementia, Depression, GERD, High Cholesterol, Hypertension, Seizure, Other Additional Past Medical Histor: irregular heart beat Past Surgical History: Hysterectomy Smoking: Non-smoker Alcohol Use: None Drug Use: None General Adult EDM: Chief Complaint: VISION PROBLEM HPI: HPI: Patient is a 86-year-old female coming in with daughter for sudden vision loss. Patient had gotten up several times during the night to use the restroom and was able to see. Around 8-9 this morning patient awoke and says everything was dark. Can see some shadows but not colors. Has a history of a stroke with left-sided deficits and left-sided vision loss. Patient has a history of dementia and per daughter is at her mental baseline. Patient denies any pain or headaches. Denies seeing any floaters or flashers prior. Denies any eye pain. No recent trauma or falls Patient is on warfarin for atrial fibrillation, had her dose increased 2 weeks ago. Also has a history of hypertension and previous stroke. Review of Systems: Review of Systems: All other systems within normal limits except for as noted in the HPI Current Medications: Current Meds: Current Medications Medications (Trade) Dose Ordered Sig/River Start Time Stop Time Status Last Admin Dose Admin Iohexol (Omnipaque 350 Mg/ml) 100 ml 1X ONCE 09/25/21 12:15 09/25/21 12:16 DC Nicardipine HCl 50 mg/Sodium Chloride 250 ml @ 25 mls/hr CONT PRN 09/25/21 12:00 09/25/21 12:18 25 MLS/HR Sodium Chloride 500 ml @ 0 mls/hr 1X ONCE 09/25/21 12:00 09/25/21 12:13 DC 09/25/21 12:22 500 MLS/HR Allergies: Allergies: Allergies Coded Allergies Type Severity Reaction Last Updated Verified No Known Drug Allergies 09/25/21 No Physical Exam: PE: Constitutional: Well developed, well nourished, no acute distress, non-toxic appearance. [] HENT: Normocephalic, atraumatic, bilateral external ears normal, nose normal. [] Eyes: PERRLA, conjunctiva normal, no discharge. [] Neck: No rigidity, supple, no stridor. [] Cardiovascular: Regular rate and rhythm, brisk cap refill [] Lungs & Thorax: Non labored symmetric respirations, no tachypnea or respiratory distress [] Abdomen: Soft, nondistended. Skin: Warm, dry, no erythema, no rash. [] Back: Unremarkable Extremities: No deformities, range of motion grossly intact, no lower extremity edema [] Neurologic: Alert and oriented, cranial nerves intact, no sensory deficits, left upper extremity weakness. No facial droop. Psychologic: Affect normal, judgement normal, mood normal. [] Current Patient Data: Vital Signs: Vital Signs Date Time Temp Pulse Resp B/P (MAP) Pulse Ox O2 Delivery O2 Flow Rate FiO2 09/25/21 11:35 97.9 62 18 230/86 (134 97 Room Air EKG: EKG: Sinus rhythm, heart rate 63, no STEMI [] Radiology/Procedures: Radiology/Procedures: [][address] [address] IMAGING REPORT Signed PATIENT: EZEQUIEL GARCIA ACCOUNT: [id number] : 1935 LOCATION: ER AGE: 86 SEX: F EXAM STATUS: REG ER ORD. PHYSICIAN: CHAYA PAULINO MD REASON: sudden vision loss PROCEDURE: CT CODE STROKE HEAD WO CT STROKE HEAD W/O History: Reason: sudden vision loss / Spl. Instructions: / History: Comparison: July 17, 2021 Technique: Noncontrast CT imaging was performed of the head. Exposure: One or more of the following individualized dose reduction techniques were utilized for this examination: 1. Automated exposure control 2. Adjustment of the mA and/or kV according to patient size 3. Use of iterative reconstruction technique. Findings: New left parietal occipital intraparenchymal hemorrhage with adjacent edema. Mild adjacent mass effect. The hemorrhage measures 1.7 cm anterior posterior by 1.9 cm transverse by 2.5 cm craniocaudal. Chronic right occipital infarct with ex vacuo dilatation of the right lateral ventricle. Extensive foci of decreased attenuation within the hemispheric white matter, most often due to chronic microvascular ischemia, unchanged. Imaged orbits are unremarkable. Secretions within the sphenoid sinuses. Mastoid air cells are clear. No acute calvarial fracture. Impression: 1. Acute left parieto-occipital intraparenchymal hemorrhage with adjacent edema. 2. Chronic right occipital infarct. 3. Extensive sequelae of chronic microvascular ischemia. FOR INTERNAL CODING PURPOSES Critical result: Findings discussed with CHAYA PAULINO MD at 09/25/2021 12:18 PM. RESULT CODE: (C) Electronically signed by: Idris Zuniga DO (09/25/2021 12:26 PM) [id number] DICTATED AND SIGNED BY: IDRIS ZUNIGA DO DATE: 09/25/211212 CC: CHAYA PAULINO MD; OBED PETTIT MD ~ Heart Score: C/O Chest Pain: No Risk Factors: Risk Factors: DM, Current or recent (<one month) smoker, HTN, HLP, family history of CAD, obesity. Risk Scores: Score 0 - 3: 2.5% MACE over next 6 weeks - Discharge Home Score 4 - 6: 20.3% MACE over next 6 weeks - Admit for Clinical Observation Score 7 - 10: 72.7% MACE over next 6 weeks - Early Invasive Strategies Course & Med Decision Making: Course & Med Decision Making Pertinent Labs and Imaging studies reviewed. (See chart for details) Spontaneous acute occipital bleed on CT in a patient on Coumadin with hypertension. Patient started on nicardipine drip to lower blood pressure, given PCC, and vitamin K for acute warfarin reversal, patient is currently in sinus rhythm. Consult placed to neurosurgery at [place], spoke with Mayelin Landeros's nurse practitioner they will accept patient to the ICU, admitted to hospitalist with Dr. Garcia. Total critical care time: 75 The time involved in the performance of separately reportable/billable procedures was not counted toward critical care time. Due to a high probability of clinically significant, life-threatening deterioration the patient required a high level of care to intervene emergently and I personally spent this critical time directly and personally managing the patient. The critical care time included obtaining a history, examination of the patient, assessment of vital signs, ordering and review of studies, arranging urgent treatment with development of a management plan, evaluation of patient's response to treatment, frequent reassessment, and discussions with other providers and/or family members. [] Dragon Disclaimer: Dragon Disclaimer: This electronic medical record was generated, in whole or in part, using a voice recognition dictation system. Departure Departure: Impression: Primary Impression: Intraparenchymal hemorrhage of brain Disposition: 02 SHORT TERM HOSPITAL Condition: CRITICAL Referrals: OBED PETTIT MD (PCP) CHAYA PAULINO MD September 25, 2021 12:44
[2021-09-25] MEDS ORDERED: PHYTONADIONE (VIT K1) IV 5 MG in IV NORMAL SALINE 50ML 50 ML IV ONE (12:45)
[2021-09-25 12:52] LABS: MAGNESIUM 1.9 mg/dL (1.8-2.4)
[2021-09-25] MEDS ORDERED: HUM PROTHROMBIN CPLX IV ONE ×2 (13:00)
[2021-09-25] MEDS ORDERED: [UNRECOGNIZED DRUG - OTHER] IV ONE (13:00)
[2021-09-25] MEDS ORDERED: STERILE WATER IV ONE ×2 (13:00)
[2021-09-25] MEDS ORDERED: [UNRECOGNIZED DRUG - OTHER] IV ONE (13:00)
[2021-09-25] MEDS ORDERED: IV NORMAL SALINE 50ML 50 ML ONE (13:50)
[2021-09-25 14:01] VITALS: BP 136/54
[2021-09-25 14:09] LABS: INFLUENZA A PATIENT NEGATIVE (NEGATIVE); INFLUENZA B PATIENT NEGATIVE (NEGATIVE)
== END 2021-09-25 14:14 | disposition short-term general hospital (02) ==
LOC: ER 11:32
DX: I61.8 Other nontraumatic intracerebral hemorrhage (principal); I25.10 Atherosclerotic heart disease of native coronary artery without angina pectoris; F03.90 Unspecified dementia, unspecified severity, without behavioral disturbance, psychotic disturbance, mood disturbance, and anxiety; F32.9 Major depressive disorder, single episode, unspecified; K21.9 Gastro-esophageal reflux disease without esophagitis; E78.00 Pure hypercholesterolemia, unspecified; I10 Essential (primary) hypertension; I48.91 Unspecified atrial fibrillation; Z20.822 Contact with and (suspected) exposure to COVID-19; Z86.73 Personal history of transient ischemic attack (TIA), and cerebral infarction without residual deficits; Z79.01 Long term (current) use of anticoagulants
CPT/HCPCS: 36415; 70450; 82947; 83735; 83880; 84484; 85025; 85610; 85730; 87428; 93005; 96361; 96365; 96366; 96367; 99291; 99292; C9803; J3430; J7040; J7050; J7194; U0003